=== PATIENT | female | born 1975 | race Caucasian/White ===

== ENCOUNTER 2016-07-03 10:33 | Emergency (ER) | payer OTHER ==
[2016-07-03 10:52] VITALS: BP 138/91; PULSE 84; O2SAT 99
--- NOTE | 2016-07-03 11:05 | ERPHSYRPT ---
- History of Present Illness Time Seen by Provider: 07/03/16 10:56 Source: patient Exam Limitations: no limitations Patient Subjective Stated Complaint: states had redness and itching of right eye last night and worse this am. Triage Nursing Assessment: ambulated to room per self. skin w/d, color normal, resp easy. right upper eyelid swollen and red. clear drainage noted. denies injury. recent sinus infection. Physician History: The patient is a 41-year-old female with her complaining that her right eye upper lid was itching and slightly red last night and this morning it is swollen, itchy, and painful. There is no discharge from the right eye. There are no visual changes. She's had nasal discharge from the right nares for a day or 2. Timing/Duration: yesterday Location: right eye Severity: mild Apparent Injury: no Associated Symptoms: itching, redness, eyelid swelling, No foreign body sensation, No decreased vision, No blurred vision Visual Assistive Devices: None Chemical Exposure: No Trauma: No Welding Arc/Tanning Bed Exposure: No Allergies/Adverse Reactions: haloperidol [From Haldol] Allergy (Mild, Verified 07/03/16 10:46) "CAN'T MOVE AT ALL FOR 3 DAYS" MUSCLE RELAXER Allergy (Uncoded 03/22/16 20:36) "MAKES MY HEART MESS UP" Home Medications: Alprazolam 1 mg [Xanax 1 mg] 1 mg PO TIDPRN PRN 11/07/15 [History] Ergocalciferol (Vitamin D2) [Vitamin D] 50,000 unit PO WEEKLY 07/03/16 [History] Omeprazole 20 MG [Prilosec 20 mg] 20 mg PO DAILY 07/03/16 [History] Hx Tetanus, Diphtheria Vaccination/Date Given: Yes (2009) Hx Influenza Vaccination/Date Given: No Hx Pneumococcal Vaccination/Date Given: No - Review of Systems Constitutional: No Fever, No Chills Eyes: Other (upper eyelid swelling), No Discharge Ears, Nose, & Throat: No Symptoms Respiratory: No Cough, No Dyspnea Cardiac: No Chest Pain, No Edema, No Syncope Abdominal/Gastrointestinal: No Abdominal Pain, No Nausea, No Vomiting, No Diarrhea Genitourinary Symptoms: No Dysuria Musculoskeletal: No Back Pain, No Neck Pain Skin: No Rash Neurological: No Dizziness, No Focal Weakness, No Sensory Changes Psychological: No Symptoms Endocrine: No Symptoms Hematologic/Lymphatic: No Symptoms Immunological/Allergic: No Symptoms All Other Systems: Reviewed and Negative - Past Medical History Pertinent Past Medical History: Yes Neurological History: Migraines ENT History: No Pertinent History Cardiac History: No Pertinent History Respiratory History: Asthma Endocrine Medical History: No Pertinent History Musculoskeletal History: Fibromyalgia, Rheumatoid Arthritis GI Medical History: GERD History: No Pertinent History Psycho-Social History: Anxiety, Depression Female Reproductive Disorders: Fibroids Other Medical History: FIBROMYALGIA, ANXIETY DISORDER - Past Surgical History Past Surgical History: Yes Neuro Surgical History: No Pertinent History Cardiac: No Pertinent History Respiratory: No Pertinent History Gastrointestinal: No Pertinent History Genitourinary: No Pertinent History Musculoskeletal: No Pertinent History Female Surgical History: Section Other Surgical History: tonsillectomy - leep - d and c - Social History Smoking Status: Former smoker How long have you smoked: 20 Exposure to second hand smoke: No Alcohol Use: None Drug Use: none Patient Lives Alone: No Significant Family History: hypertension - Female History Hx Last Menstrual Period: 06/01/16 Hx Now: (says no but late) - Nursing Vital Signs Nursing Vital Signs: Initial Vital Signs Temperature 98.7 F Temperature Source Oral Pulse Rate 84 Blood Pressure 138/91 Pain Intensity 8 - Physical Exam General Appearance: no apparent distress Vision Acuity Degree Evaluation Phase: Uncorrected Vision Acuity Right Eye: 20/20 Vision Acuity Left Eye: 20/20 Eye Exam: right eye: eyelid injury (No apparent injury, but upper eyelid is tender, red, and swollen), bilateral eye: PERRL, EOMI Ears, Nose, Throat Exam: normal ENT inspection Neck Exam: normal inspection Respiratory Exam: normal breath sounds Cardiovascular Exam: regular rate/rhythm Gastrointestinal Exam: soft Extremity Exam: normal inspection Neurologic: alert Skin Exam: normal color SpO2 Interpretation: normal SpO2: 99 Oxygen Delivery: Room Air - Progress Progress: unchanged Counseled pt/family regarding: diagnosis - Departure Time of Disposition: 11:09 Departure Disposition: Home Clinical Impression: Cellulitis Condition: Stable Critical Care Time: No Additional Instructions: You may use the Augmentin 875 that you have at home for treatment. Take one tablet twice a day for 10 days. Benadryl 25 - 50 mg every 2 to 4 hrs as needed. Follow up tomorrow if condition worsens.
== END 2016-07-03 11:20 | disposition home or self-care (01) ==
LOC: ED 10:33
DX: H00.031 Abscess of right upper eyelid (principal)
CPT/HCPCS: 99282

== ENCOUNTER 2016-09-02 07:26 | Emergency (ER) | payer OTHER ==
[2016-09-02 07:34] VITALS: BP 152/94; O2SAT 99
--- NOTE | 2016-09-02 07:58 | ERPHSYRPT ---
- History of Present Illness Time Seen by Provider: 09/02/16 07:41 Source: patient Patient Subjective Stated Complaint: itching since 0530 Triage Nursing Assessment: states started itching about 0530. states her skin is itching. took shower and benadryl with no relief. has reddened areas to bilat knees. states started taking keflex 2 days ago for swollen lymph node. states under significant stress Physician History: CC: hives hX: 41 y/o patient on keflex for a hair follicle and lymph node enlarged. She noted itching, red hives this AM. Took benadryl and some better. No diff breathing, V/D. She is DM on metformin. She sees Dr Ring. Timing/Duration: today Allergies/Adverse Reactions: haloperidol [From Haldol] Allergy (Mild, Verified 09/02/16 07:34) "CAN'T MOVE AT ALL FOR 3 DAYS" MUSCLE RELAXER Allergy (Uncoded 09/02/16 07:34) "MAKES MY HEART MESS UP" Home Medications: Alprazolam 1 mg [Xanax 1 mg] 1 mg PO TIDPRN PRN 11/07/15 [History] Ergocalciferol (Vitamin D2) [Vitamin D] 50,000 unit PO WEEKLY 07/03/16 [History] Omeprazole 20 MG [Prilosec 20 mg] 20 mg PO DAILY 07/03/16 [History] Celecoxib [Celebrex] 200 mg PO HS 09/02/16 [History] Cephalexin Mh 500 mg [Keflex 500 mg] 500 mg PO BID 09/02/16 [History] Metformin HCl [Metformin HCl ER] 500 mg PO HS 09/02/16 [History] Hx Tetanus, Diphtheria Vaccination/Date Given: Yes Hx Influenza Vaccination/Date Given: No Hx Pneumococcal Vaccination/Date Given: No Immunizations Up to Date: Yes - Review of Systems Constitutional: No Fever, No Chills Respiratory: No Dyspnea Abdominal/Gastrointestinal: No Vomiting, No Diarrhea Skin: Pruritis, Rash - Past Medical History Pertinent Past Medical History: Yes Neurological History: Migraines ENT History: No Pertinent History Cardiac History: No Pertinent History Respiratory History: Asthma Endocrine Medical History: No Pertinent History Musculoskeletal History: Fibromyalgia, Rheumatoid Arthritis GI Medical History: GERD History: No Pertinent History Psycho-Social History: Anxiety, Depression Female Reproductive Disorders: Fibroids Other Medical History: FIBROMYALGIA, ANXIETY DISORDER. metabolic X - Past Surgical History Past Surgical History: Yes Neuro Surgical History: No Pertinent History Cardiac: No Pertinent History Respiratory: No Pertinent History Gastrointestinal: No Pertinent History Genitourinary: No Pertinent History Musculoskeletal: No Pertinent History Female Surgical History: Section Other Surgical History: tonsillectomy - leep - d and c - Social History Smoking Status: Never smoker How long have you smoked: 20 Exposure to second hand smoke: Yes Alcohol Use: None Drug Use: none Patient Lives Alone: No Significant Family History: hypertension - Female History Hx Last Menstrual Period: 08/10 Hx Now: (says no but late) - Nursing Vital Signs Nursing Vital Signs: Initial Vital Signs Temperature 98.5 F Temperature Source Oral Pulse Rate 90 Respiratory Rate 18 Blood Pressure [Right Arm] 152/94 Pain Intensity 0 - Physical Exam General Appearance: alert Eye Exam: PERRL/EOMI Ears, Nose, Throat Exam: moist mucous membranes Neck Exam: normal inspection, supple Respiratory Exam: normal breath sounds Cardiovascular Exam: regular rate/rhythm Gastrointestinal/Abdomen Exam: soft, No tenderness, No distention Extremity Exam: normal range of motion Neurologic Exam: alert, oriented x 3, cooperative, sensation nml, No motor deficits Skin Exam: warm, dry, rash (mild hives scattered) SpO2 Interpretation: normal SpO2: 99 Oxygen Delivery: Room Air - Course Nursing assessment & vital signs reviewed: Yes - Progress Progress Note: 09/02/16 07:59 Rx aveeno oatmeal baths, change to hydroxyzine. Stop keflex. Instr given. Counseled pt/family regarding: diagnosis, need for follow-up - Departure Time of Disposition: 07:59 Departure Disposition: Home Clinical Impression: Hives Condition: Stable Critical Care Time: No Referrals: ANDREA RING [Primary Care Provider] - Instructions: Adverse Drug Reaction -- Allergic, Hives Additional Instructions: Rx hydroxyzine. Stop benadryl. Aveeno oatmeal baths. Follow up with Dr Ring. Return for problems or concerns. Prescriptions: Hydroxyzine HCl 1 tab PO Q6H PRN PRN #24 tablet PRN Reason: rash,rest
[2016-09-02 08:25] VITALS: PULSE 80
== END 2016-09-02 08:10 | disposition home or self-care (01) ==
LOC: ED 07:26
DX: L50.9 Urticaria, unspecified (principal)
CPT/HCPCS: 99281

== ENCOUNTER 2016-09-03 02:49 | Emergency (ER) | payer OTHER ==
[2016-09-03 03:04] VITALS: O2SAT 97
[2016-09-03] MEDS ORDERED: solu-MEDROL 125 MG IM ONE (03:09)
[2016-09-03] MEDS ORDERED: solu-MEDROL 125 MG ONE (03:18)
--- NOTE | 2016-09-03 03:19 | ERPHSYRPT ---
- History of Present Illness Time Seen by Provider: 09/03/16 03:00 Source: patient Exam Limitations: clinical condition Patient Subjective Stated Complaint: PT STS BROKE OUT IN RASH YESTERDAY, STS WAS SEEN HERE AND GIVEN RX HYDROXYZINE. PT STS UNABLE TO FILL THIS DUE TO COST. PT STS THAT ITCHING IS WORSE TONIGHT. STS MAKING HER FEEL ANXIOUS. STS RASH IS WORSENING, STS ITCHING ALL OVER. Triage Nursing Assessment: PT ALERT, ORIENTED, ANSWERS ALL QUESTIONS APPROPRIATELY. SKIN P/W/D, RESPS NON-LABORED. PT AMBULATORY TO TX ROOM, STEADY GAIT NOTED. RAISED WELTS NOTED ALL OVER BODY. PT APPEARS ANXIOUS, ITCHING AND SCRATCHING ALL OVER BODY. Physician History: PATIENT DEVELOPED GENERALIZED RASH ASSOCIATED WITH ITCHING AFTER TAKING ANTIBIOTIC KEFLEX 2 DAYS AGO. WAS UNABLE TO FILL PRESCRIPTION FOR ATARAX. STATES ITCHING WORSE. DENIES DIFFICULTY BREATHING OR SWALLOWING. Timing/Duration: yesterday Quality: itchy Severity: moderate Location: generalized Possible Causes: medications Modifying Factors: Improves With: antihistamine Associated Symptoms: change in skin texture Allergies/Adverse Reactions: haloperidol [From Haldol] Allergy (Mild, Verified 09/03/16 02:51) "CAN'T MOVE AT ALL FOR 3 DAYS" MUSCLE RELAXER Allergy (Uncoded 09/03/16 02:51) "MAKES MY HEART MESS UP" Home Medications: Alprazolam 1 mg [Xanax 1 mg] 1 mg PO TIDPRN PRN 11/07/15 [History] Ergocalciferol (Vitamin D2) [Vitamin D] 50,000 unit PO WEEKLY 07/03/16 [History] Omeprazole 20 MG [Prilosec 20 mg] 20 mg PO DAILY 07/03/16 [History] Celecoxib [Celebrex] 200 mg PO HS 09/02/16 [History] Cephalexin Mh 500 mg [Keflex 500 mg] 500 mg PO BID 09/02/16 [History] Metformin HCl [Metformin HCl ER] 500 mg PO HS 09/02/16 [History] Hx Tetanus, Diphtheria Vaccination/Date Given: Yes Hx Influenza Vaccination/Date Given: No Hx Pneumococcal Vaccination/Date Given: No Immunizations Up to Date: Yes - Review of Systems Constitutional: No Fever, No Chills Eyes: No Symptoms Ears, Nose, & Throat: No Symptoms Respiratory: No Cough, No Dyspnea Cardiac: No Chest Pain, No Edema, No Syncope Abdominal/Gastrointestinal: No Abdominal Pain, No Nausea, No Vomiting, No Diarrhea Genitourinary Symptoms: No Dysuria Musculoskeletal: No Back Pain, No Neck Pain Skin: Skin Lesions, No Rash Neurological: No Dizziness, No Focal Weakness, No Sensory Changes Psychological: No Symptoms Endocrine: No Symptoms All Other Systems: Reviewed and Negative - Past Medical History Pertinent Past Medical History: Yes Neurological History: Migraines ENT History: No Pertinent History Cardiac History: No Pertinent History Respiratory History: Asthma Endocrine Medical History: Diabetes Type II Musculoskeletal History: Fibromyalgia GI Medical History: GERD History: No Pertinent History Psycho-Social History: Anxiety, Depression Female Reproductive Disorders: Fibroids Other Medical History: FIBROMYALGIA, ANXIETY DISORDER. metabolic X - Past Surgical History Past Surgical History: Yes Neuro Surgical History: No Pertinent History Cardiac: No Pertinent History Respiratory: No Pertinent History Gastrointestinal: No Pertinent History Genitourinary: No Pertinent History Musculoskeletal: No Pertinent History Female Surgical History: Section Other Surgical History: tonsillectomy - leep - d and c - Social History Smoking Status: Former smoker How long have you smoked: 20 Exposure to second hand smoke: No Alcohol Use: None Drug Use: none Patient Lives Alone: No Significant Family History: hypertension - Female History Hx Last Menstrual Period: 08/11/16 Hx Now: (says no but late) - Nursing Vital Signs Nursing Vital Signs: Initial Vital Signs Pulse Rate 92 Respiratory Rate 18 Blood Pressure [Right Arm] 173/122 - Physical Exam SpO2: 97 Oxygen Delivery: Room Air - Progress Progress Note: 09/03/16 03:18 PATIENT GIVEN SOLUMEDROL 125MG IM Counseled pt/family regarding: diagnosis, need for follow-up - Departure Time of Disposition: 03:44 Departure Disposition: Home Clinical Impression: ALLERGIC REACTION Condition: Stable Critical Care Time: No Critical Care Time(excluding separately billable procedures): 30-74 minutes Referrals: ANDREA CHRISTY [Primary Care Provider] - Additional Instructions: TAKE OVER THE COUNTER BENADRYL 50MG EVERY 4 HOURS NEEDED FOR ITCHING. PREDNISONE 20MG, 2 TABLETS DAILY FOR 5 DAYS. CONSULT YOUR FAMILY PHYSICIAN FOR FOLLOWUP IN 1 WEEK. Prescriptions: Prednisone 20 mg [Deltasone 20 mg] 20 mg PO BID #10 tablet
[2016-09-03 03:40] VITALS: BP 127/92; PULSE 88
== END 2016-09-03 03:58 | disposition home or self-care (01) ==
LOC: ED 02:49
DX: T78.40XA Allergy, unspecified, initial encounter (principal); E11.9 Type 2 diabetes mellitus without complications; Z79.84 Long term (current) use of oral hypoglycemic drugs
CPT/HCPCS: 96372; 99284; J2930

== ENCOUNTER 2017-02-20 11:08 | Emergency (ER) | payer OTHER ==
[2017-02-20] MEDS ORDERED: TORAdol 30 mg Injection IV ONE (11:53)
[2017-02-20] MEDS ORDERED: BENADRYL 50 MG/ML IV ONE (11:54)
[2017-02-20] MEDS ORDERED: Reglan 10 MG/2 ML IV ONE (11:54)
[2017-02-20] MEDS ORDERED: Zofran 4 MG/2 ML VIAL IV ONE (11:55)
[2017-02-20] MEDS ORDERED: Zofran 4 MG/2 ML VIAL ONE (12:01)
[2017-02-20] MEDS ORDERED: Reglan 10 MG/2 ML ONE (12:02)
[2017-02-20] MEDS ORDERED: BENADRYL 50 MG/ML ONE (12:02)
[2017-02-20] MEDS ORDERED: TORAdol 30 mg Injection ONE (12:02)
--- NOTE | 2017-02-20 12:49 | XRAY ---
Indication: Intractable headache. Top of head pain for 4-5 days. Multiple contiguous axial images obtained through the head without contrast. Comparison: September 02, 2014. Again normal appearing brain parenchyma, ventricles, and bony calvarium. Minimal mucosal thickening of both ethmoid sinuses. Mastoid air cells clear. Impression: Again normal CT head without contrast exam. Incidental minimal paranasal sinus disease. CTDI 70.10
--- NOTE | 2017-02-20 13:08 | ERPHSYRPT ---
- History of Present Illness Time Seen by Provider: 02/20/17 11:52 Source: patient Exam Limitations: no limitations Patient Subjective Stated Complaint: pt states she began having a headache 4 days ago. states her pain comes and goes. denies any injury to head. has a hx of headaches. Triage Nursing Assessment: pt pink, warm, dry. pt ambulated and drove herself to the ER. pupils perrl. Physician History: States that this is not the worst headache of her life, but they usually don't last this long. She describes "icepick" migraines to right parietal area. Timing/Duration: day(s) (4) Quality: sharpness, stabbing, throbbing Head Pain Location: parietal Severity of Pain-Max: severe Severity of Pain-Current: moderate Recent Head Trauma: frequent headaches Modifying Factors: Improves With: exposure to light Associated Symptoms: denies symptoms Previous symptoms: same symptoms as today Allergies/Adverse Reactions: haloperidol [From Haldol] Allergy (Mild, Verified 02/20/17 11:56) "CAN'T MOVE AT ALL FOR 3 DAYS" MUSCLE RELAXER Allergy (Uncoded 02/20/17 11:56) "MAKES MY HEART MESS UP" Home Medications: Alprazolam 1 mg [Xanax 1 mg] 1 mg PO TIDPRN PRN 11/07/15 [History] Ergocalciferol (Vitamin D2) [Vitamin D] 50,000 unit PO WEEKLY 07/03/16 [History] Celecoxib [Celebrex] 200 mg PO HS 09/02/16 [History] Norgestimate-Ethinyl Estradiol [Ortho Tri-Cyclen Lo Tablet] 1 each PO DAILY [History] Hx Tetanus, Diphtheria Vaccination/Date Given: Yes (up to date) Hx Influenza Vaccination/Date Given: No Hx Pneumococcal Vaccination/Date Given: No Immunizations Up to Date: Yes - Review of Systems Constitutional: No Symptoms Eyes: No Symptoms Ears, Nose, & Throat: No Symptoms Respiratory: No Symptoms Cardiac: No Symptoms Abdominal/Gastrointestinal: No Symptoms Musculoskeletal: No Symptoms Skin: No Symptoms Neurological: Headache Psychological: No Symptoms Endocrine: No Symptoms Hematologic/Lymphatic: No Symptoms Immunological/Allergic: No Symptoms - Past Medical History Pertinent Past Medical History: Yes Neurological History: Migraines ENT History: No Pertinent History Cardiac History: No Pertinent History Respiratory History: Asthma Endocrine Medical History: Diabetes Type II Musculoskeletal History: Fibromyalgia GI Medical History: GERD History: No Pertinent History Psycho-Social History: Anxiety, Depression Female Reproductive Disorders: Fibroids Other Medical History: FIBROMYALGIA, ANXIETY DISORDER. metabolic X - Past Surgical History Past Surgical History: Yes Neuro Surgical History: No Pertinent History Cardiac: No Pertinent History Respiratory: No Pertinent History Gastrointestinal: No Pertinent History Genitourinary: No Pertinent History Musculoskeletal: No Pertinent History Female Surgical History: Section Other Surgical History: tonsillectomy - leep - d and c - Social History Smoking Status: Former smoker How long have you smoked: 20 Exposure to second hand smoke: No Alcohol Use: None Drug Use: none Patient Lives Alone: No Significant Family History: hypertension - Female History Hx Last Menstrual Period: now Hx Now: (says no but late) - Nursing Vital Signs Nursing Vital Signs: Initial Vital Signs Temperature 98.2 F 02/20/17 11:51 Pulse Rate 75 02/20/17 11:51 Respiratory Rate 18 02/20/17 11:51 Blood Pressure 143/96 02/20/17 11:51 O2 Sat by Pulse Oximetry 98 02/20/17 11:51 Pain Scale Pain Intensity 3 - Physical Exam General Appearance: moderate distress Eye Exam: PERRL/EOMI, eyes nml inspection Ears, Nose, Throat Exam: normal ENT inspection, TMs normal, moist mucous membranes Neck Exam: normal inspection, non-tender, supple, full range of motion Respiratory Exam: normal breath sounds, lungs clear, airway intact Cardiovascular Exam: regular rate/rhythm, normal heart sounds, normal peripheral pulses Gastrointestinal/Abdominal Exam: soft, normal bowel sounds Extremity Exam: normal inspection, normal range of motion, pelvis stable Mental Status Exam: alert, oriented x 3, cooperative supervisor rod placing Exam: normal hearing, normal speech Coordination/Gait Exam: normal gait Motor/Sensory Exam: no motor deficit, no sensory deficit Skin Exam: normal color, warm, dry SpO2 Interpretation: normal SpO2: 98 Oxygen Delivery: Room Air - Course Nursing assessment & vital signs reviewed: Yes - CT Exams Head CT Interpretation: Negative, Tele-radiologist Report Ordered Tests: Active Orders 24 hr Category Date Time Status IV Insertion STAT Care 02/20/17 12:24 Active HEAD WITHOUT CONTRAST [CT] Stat Exams 02/20/17 11:52 Completed Medication Summary Discontinued Medications Generic Name Dose Route Start Last Admin Trade Name Kenyon MONN Reason Stop Dose Admin Diphenhydramine HCl 25 mg 02/20/17 11:54 02/20/17 12:22 Benadryl 50 Mg/Ml IV 02/20/17 11:55 Not Given STAT ONE Diphenhydramine HCl Confirm 02/20/17 12:02 Benadryl 50 Mg/Ml Administered 02/20/17 12:03 Dose 50 mg .ROUTE .STK-MED ONE Ketorolac Tromethamine 30 mg 02/20/17 11:53 02/20/17 12:17 Toradol 30 Mg Injection IV 02/20/17 11:54 30 mg STAT ONE Administration Ketorolac Tromethamine Confirm 02/20/17 12:02 Toradol 30 Mg Injection Administered 02/20/17 12:03 Dose 30 mg .ROUTE .STK-MED ONE Metoclopramide HCl 10 mg 02/20/17 11:54 02/20/17 12:11 Reglan 10 Mg/2 Ml IV 02/20/17 11:55 10 mg STAT ONE Administration Metoclopramide HCl Confirm 02/20/17 12:02 Reglan 10 Mg/2 Ml Administered 02/20/17 12:03 Dose 10 mg .ROUTE .STK-MED ONE Ondansetron HCl 4 mg 02/20/17 11:55 02/20/17 12:14 Zofran 4 Mg/2 Ml Vial IV 02/20/17 11:56 4 mg STAT ONE Administration Ondansetron HCl Confirm 02/20/17 12:01 Zofran 4 Mg/2 Ml Vial Administered 02/20/17 12:02 Dose 4 mg .ROUTE .STK-MED ONE - Departure Time of Disposition: 13:00 Departure Disposition: Home Clinical Impression: Headache Qualifiers: Headache type: unspecified Headache chronicity pattern: acute headache Intractability: not intractable Qualified Code(s): R51 - Headache Condition: Stable Critical Care Time: No Referrals: ANDREA CHRISTY [Primary Care Provider] - Instructions: Headache
[2017-02-20 13:25] VITALS: BP 119/70; PULSE 76; O2SAT 100
== END 2017-02-20 13:24 | disposition home or self-care (01) ==
LOC: ED 11:08
DX: R51 Headache (principal)
CPT/HCPCS: 36000; 70450; 96374; 96375; 99284; J1200; J1885; J2405

== ENCOUNTER 2017-03-28 15:46 | Emergency (ER) | payer OTHER ==
[2017-03-28 16:03] VITALS: O2SAT 97
[2017-03-28] MEDS ORDERED: TORAdol 30 mg Injection IM ONE (16:23)
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
[2017-03-28] MEDS ORDERED: TORAdol 30 mg Injection ONE (16:27)
--- NOTE | 2017-03-28 17:07 | XRAY ---
Indication: Right shoulder pain. No known injury. Comparison: Right shoulder exam taken earlier in the day. AP and scapular Y view of the right scapula obtained. No bony, articular, or soft tissue abnormalities.
[2017-03-28 17:17] VITALS: BP 115/77; PULSE 80
== END 2017-03-28 17:40 | disposition home or self-care (01) ==
LOC: ED 15:46
DX: M25.511 Pain in right shoulder (principal); X50.0XXD Overexertion from strenuous movement or load, subsequent encounter
CPT/HCPCS: 73010; 96372; 99284; J1885

== ENCOUNTER 2017-04-18 09:00 | Emergency (ER) | payer OTHER ==
[2017-04-18 09:54] VITALS: PULSE 83; O2SAT 98
[2017-04-18] MEDS ORDERED: TORAdol 30 mg Injection IM ONE (09:54)
[2017-04-18] MEDS ORDERED: TORAdol 30 mg Injection ONE (10:14)
[2017-04-18 10:20] VITALS: BP 143/82
--- NOTE | 2017-04-18 10:20 | ERPHSYRPT ---
- History of Present Illness Time Seen by Provider: 04/18/17 09:50 Source: patient Patient Subjective Stated Complaint: pt states she has had right shoulder pain for the past 3 weeks. states she was seen in ER 3 weeks ago. states she followed up with family Dr and has had massage. Triage Nursing Assessment: pt pink, warm, dry. no deformity noted to shoulder. pt able to move shoulder to remove clothes. Physician History: CC: neck and shoulder pain Hx: 41 y/o patient has had 3 weeks of right shoulder pain. Had normal xray. Now neck hurts. Muscles in between hurt. No new injury. No specific injury. Some tingling in the right hand. She called to see Dr Ring but did not want to wait until 2PM so came to ER. Pain is moderate. Allergies/Adverse Reactions: haloperidol [From Haldol] Allergy (Mild, Verified 03/28/17 16:03) "CAN'T MOVE AT ALL FOR 3 DAYS" MUSCLE RELAXER Allergy (Uncoded 03/28/17 16:03) "MAKES MY HEART MESS UP" Home Medications: Alprazolam 1 mg [Xanax 1 mg] 1 mg PO TIDPRN PRN 11/07/15 [History] Ergocalciferol (Vitamin D2) [Vitamin D] 50,000 unit PO WEEKLY 07/03/16 [History] Celecoxib [Celebrex] 200 mg PO HS 09/02/16 [History] Norgestimate-Ethinyl Estradiol [Ortho Tri-Cyclen Lo Tablet] 1 each PO DAILY [History] Hx Tetanus, Diphtheria Vaccination/Date Given: Yes (up to date) Hx Influenza Vaccination/Date Given: No Hx Pneumococcal Vaccination/Date Given: No Immunizations Up to Date: Yes - Review of Systems Constitutional: No Fever, No Chills Eyes: No Symptoms Ears, Nose, & Throat: No Symptoms Cardiac: No Chest Pain Abdominal/Gastrointestinal: No Abdominal Pain Genitourinary Symptoms: No Musculoskeletal: Neck Pain, Joint Pain (right shoulder), No Back Pain Skin: No Rash Neurological: Focal Weakness, No Headache, No Parasthesia All Other Systems: Reviewed and Negative - Past Medical History Pertinent Past Medical History: Yes Neurological History: Migraines ENT History: No Pertinent History Cardiac History: No Pertinent History Respiratory History: Asthma Endocrine Medical History: Diabetes Type II Musculoskeletal History: Fibromyalgia GI Medical History: GERD History: No Pertinent History Psycho-Social History: Anxiety, Depression Female Reproductive Disorders: Fibroids Other Medical History: FIBROMYALGIA, ANXIETY DISORDER. metabolic X - Past Surgical History Past Surgical History: Yes Neuro Surgical History: No Pertinent History Cardiac: No Pertinent History Respiratory: No Pertinent History Gastrointestinal: No Pertinent History Genitourinary: No Pertinent History Musculoskeletal: No Pertinent History Female Surgical History: Section Other Surgical History: tonsillectomy - leep - d and c - Social History Smoking Status: Current some day smoker How long have you smoked: 20 Exposure to second hand smoke: Yes Alcohol Use: None Drug Use: none Patient Lives Alone: No Significant Family History: hypertension - Female History Hx Last Menstrual Period: now Hx Now: (says no but late) - Nursing Vital Signs Nursing Vital Signs: Initial Vital Signs Temperature 97.9 F 04/18/17 09:53 Pulse Rate 83 04/18/17 09:53 Respiratory Rate 18 04/18/17 09:53 Blood Pressure 148/89 04/18/17 09:53 O2 Sat by Pulse Oximetry 98 04/18/17 09:53 Pain Scale Pain Intensity 8 - Physical Exam General Appearance: alert Eye Exam: PERRL/EOMI Ears, Nose, Throat Exam: normal ENT inspection, moist mucous membranes Neck Exam: normal inspection, non-tender (no point tenderness), supple Respiratory Exam: normal breath sounds Cardiovascular Exam: regular rate/rhythm Gastrointestinal/Abdomen Exam: soft, No tenderness, No distention Extremity Exam: normal inspection, normal range of motion, other (tender right trapezius muscles) Neurologic Exam: alert, oriented x 3, cooperative, kettle tender II-XII nml as tested, sensation nml, No motor deficits Skin Exam: normal color, warm, dry SpO2 Interpretation: normal SpO2: 98 Oxygen Delivery: Room Air - Course Nursing assessment & vital signs reviewed: Yes - Radiology Exams cervical X-ray Interpretation: Teleradiologist Report, Negative Ordered Tests: Active Orders 24 hr Category Date Time Status CERVICAL SPINE MINIMUM 4 VIEWS Stat Exams 04/18/17 09:54 Completed Medication Summary Discontinued Medications Generic Name Dose Route Start Last Admin Trade Name Freq PRN Reason Stop Dose Admin Ketorolac Tromethamine 60 mg 04/18/17 09:54 04/18/17 10:18 Toradol 30 Mg Injection IM 10/24/17 09:55 60 mg STAT ONE Administration Ketorolac Tromethamine Confirm 04/18/17 10:14 Toradol 30 Mg Injection Administered 04/18/17 10:15 Dose 60 mg .ROUTE .STK-MED ONE - Progress Progress Note: 04/18/17 11:19 Patient drove herself here. She was given toradol for pain. Advised she see Dr Ring to consider PT, other investigations. She wants to try norflex muscle relaxer. Counseled pt/family regarding: diagnosis, need for follow-up, rad results - Departure Time of Disposition: 11:20 Departure Disposition: Home Clinical Impression: Cervicalgia, Fibromyalgia Condition: Stable Critical Care Time: No Referrals: ANDREA RING [Primary Care Provider] - Instructions: Neck Pain Additional Instructions: Continue celebrex for pain. Rx norflex for muscle relaxer- no driving. See Dr Ring tomorrow as scheduled. Prescriptions: Orphenadrine Citrate 100 mg [Norflex 100 MG Tablet] 1 tab PO BID #10 tab
--- NOTE | 2017-04-18 11:00 | XRAY ---
Indication: Neck and left shoulder pain for 3 weeks pain no known injury. Comparison: March 28, 2017. 6 views of the cervical spine unchanged again demonstrating lordotic straightening with disc spaces preserved. Foramina remain bilaterally patent. No new/acute findings.
== END 2017-04-18 11:39 | disposition home or self-care (01) ==
LOC: ED 09:00
DX: M54.2 Cervicalgia (principal); M79.7 Fibromyalgia; M25.511 Pain in right shoulder; Z79.899 Other long term (current) drug therapy; E11.9 Type 2 diabetes mellitus without complications; I10 Essential (primary) hypertension
CPT/HCPCS: 72050; 96372; 99284; J1885

== ENCOUNTER 2017-06-08 12:54 | Emergency (ER) | payer OTHER ==
[2017-06-08] MEDS ORDERED: Sodium Chloride 0.9% 1000 ML 1,000 ML IV STA (13:35)
--- NOTE | 2017-06-08 13:43 | ERPHSYRPT ---
- History of Present Illness Time Seen by Provider: 06/08/17 13:29 Source: patient Exam Limitations: no limitations Patient Subjective Stated Complaint: Pt states "I ate burmese food yesterday and I had this horrible pain go through my chest, now the pain is in my upper abdomen, my stool was a different color today and I am tired." Triage Nursing Assessment: Pt alert and oriented X 3, skin pwd. Pt ambulates with an upright steady gait, able to speak in clear full sentences. Physician History: 42-year-old white female with history of migraines, asthma, diabetes type 2, fibromyalgia, reflux, anxiety, depression She arrives with complaint of pain in her anterior chest and shoulder symptoms since yesterday she states that yesterday she ate [place] food that she began to have an aching pain in her left upper chest and left shoulder she described as a severe aching she states that this as radiated down and now is incurring in her left upper quadrant as well. She is not short of breath she states she has no nausea no vomiting no fevers. She does state that her stools been light. Past medical history includes migraines, asthma, diabetes type 2, fibromyalgia, GERD, anxiety, depression, fibroids, fibromyalgia, anxiety, metabolic X. Past surgical history , LEEP, D&C, tonsillectomy and adenoidectomy. Social history positive for tobacco use Patient states she took a full size aspirin 325 mg last night at 6 PM. Timing/Duration: yesterday Severity: moderate Modifying Factors: Improves With: eating (patient states she ate [place] food prior onset of sympt) Associated Symptoms: abdominal pain, chest pain, No nausea, No vomiting, No shortness of breath, No heartburn, No diaphoresis, No cough, No chills, No fever , No headaches, No loss of appetite, No malaise, No rash, No syncope, No seizure , No weakness Allergies/Adverse Reactions: haloperidol [From Haldol] Allergy (Mild, Verified 03/28/17 16:03) "CAN'T MOVE AT ALL FOR 3 DAYS" MUSCLE RELAXER Allergy (Uncoded 03/28/17 16:03) "MAKES MY HEART MESS UP" Home Medications: Alprazolam 1 mg [Xanax 1 mg] 1 mg PO TIDPRN PRN 11/07/15 [History] Ergocalciferol (Vitamin D2) [Vitamin D] 50,000 unit PO WEEKLY 07/03/16 [History] Celecoxib [Celebrex] 200 mg PO HS 09/02/16 [History] Norgestimate-Ethinyl Estradiol [Ortho Tri-Cyclen Lo Tablet] 1 each PO DAILY [History] Hx Tetanus, Diphtheria Vaccination/Date Given: Yes Hx Influenza Vaccination/Date Given: No Hx Pneumococcal Vaccination/Date Given: No Immunizations Up to Date: Yes - Review of Systems Constitutional: No Fever, No Chills Eyes: No Symptoms, No Discharge, No Eye Pain, No Eye Redness, No Itchy, No Photophobia, No Tearing, No Vision Changes, No Double Vision, No Foreign Body Sensation Ears, Nose, & Throat: No Symptoms, No Ear Pain, No Ear Discharge, No Hearing Changes, No Tinnitus, No Nose Pain, No Nose Congestion, No Nose Discharge, No Sinus Drainage, No Epistaxis, No Mouth Pain, No Mouth Swelling, No Loose Teeth, No Throat Pain, No Throat Swelling, No Hoarse, No Painful Swallowing, No Snoring , No Stridor Respiratory: No Cough, No Cyanosis, No Dyspnea, No Dyspnea on Exertion ([place]), No Stridor, No Wheezing Cardiac: Chest Pain, No Edema, No Palpitations, No Syncope, No Orthopnea, No PND Abdominal/Gastrointestinal: Abdominal Pain (left upper quadrant pain), No Nausea , No Vomiting, No Diarrhea Genitourinary Symptoms: No Dysuria Musculoskeletal: No Back Pain, No Neck Pain Skin: No Rash Neurological: No Dizziness, No Focal Weakness, No Sensory Changes Psychological: No Symptoms Endocrine: No Symptoms All Other Systems: Reviewed and Negative - Past Medical History Pertinent Past Medical History: Yes Neurological History: Migraines ENT History: No Pertinent History Cardiac History: No Pertinent History Respiratory History: Asthma Endocrine Medical History: Hypoglycemia Musculoskeletal History: Fibromyalgia GI Medical History: GERD History: No Pertinent History Psycho-Social History: Anxiety, Depression Female Reproductive Disorders: Fibroids Other Medical History: FIBROMYALGIA, ANXIETY DISORDER. metabolic X - Past Surgical History Past Surgical History: Yes Neuro Surgical History: No Pertinent History Cardiac: No Pertinent History Respiratory: No Pertinent History Gastrointestinal: No Pertinent History Genitourinary: No Pertinent History Musculoskeletal: No Pertinent History Female Surgical History: Section Other Surgical History: tonsillectomy - leep - d and c - Social History Smoking Status: Current every day smoker How long have you smoked: 4 years Exposure to second hand smoke: Yes Alcohol Use: None Drug Use: none Patient Lives Alone: No Significant Family History: hypertension - Female History Hx Last Menstrual Period: 05/09/2017 Hx Now: No - Nursing Vital Signs Nursing Vital Signs: Initial Vital Signs Temperature 98.7 F 06/08/17 13:10 Pulse Rate 80 06/08/17 13:10 Respiratory Rate 16 06/08/17 13:10 Blood Pressure 151/90 06/08/17 13:10 O2 Sat by Pulse Oximetry 98 06/08/17 13:10 Pain Scale Pain Intensity 0 - Physical Exam General Appearance: no apparent distress, alert Eye Exam: PERRL/EOMI, eyes nml inspection Ears, Nose, Throat Exam: normal ENT inspection, TMs normal, pharynx normal, moist mucous membranes Neck Exam: normal inspection, non-tender, supple, full range of motion Respiratory Exam: normal breath sounds Cardiovascular Exam: regular rate/rhythm, normal heart sounds, normal peripheral pulses Gastrointestinal/Abdomen Exam: soft, normal bowel sounds, No tenderness, No mass , No guarding, No ecchymosis, No pulsatile mass, No rebound, No hernia, No hepatomegaly, No organomegaly, No splenomegaly, No bruit Back Exam: normal inspection, normal range of motion, No CVA tenderness, No vertebral tenderness Extremity Exam: normal inspection, normal range of motion, pelvis stable Neurologic Exam: alert, oriented x 3, cooperative, normal mood/affect, nml cerebellar function, nml station & gait, sensation nml, No motor deficits Skin Exam: normal color, warm, dry, No rash Lymphatic Exam: No adenopathy SpO2 Interpretation: normal (98%) SpO2: 98 Oxygen Delivery: Room Air - Course Nursing assessment & vital signs reviewed: Yes EKG Interpreted by Me: RATE (70 bpm), Sinus Rhythm, NORMAL AXIS, Other (EKG: Sinus rhythm, 70 bpm, normal axis, poor anterior R-wave progression, no acute ST or T wave changes, no acute changes as compared to March 22, 2016) - Radiology Exams Chest X-ray Interpretation: Discussed w/ radiologist (chest x-ray: Normal heart, lungs , and bony thorax) Ordered Tests: Active Orders 24 hr Category Date Time Status Customer Sales Consultant STAT Care 06/08/17 13:37 Active EKG-ER Only STAT Care 06/08/17 13:35 Active IV Insertion STAT Care 06/08/17 13:35 Active CHEST 1 VIEW (PORTABLE) Stat Exams 06/08/17 13:36 Completed AMYLASE Routine Lab 06/08/17 13:45 Completed CBC W DIFF Stat Lab 06/08/17 13:45 Completed CMP Routine Lab 06/08/17 13:45 Completed D-DIMER QUANTITATION Stat Lab 06/08/17 13:45 Completed HCG QUALITATIVE,SERUM Stat Lab 06/08/17 13:45 Completed LIPASE Routine Lab 06/08/17 13:45 Completed TROPONIN Q3H Lab 06/08/17 13:45 Completed TROPONIN Q3H Lab 06/08/17 16:45 Ordered TROPONIN Q3H Lab 06/08/17 19:45 Ordered TROPONIN Q3H Lab 06/08/17 22:45 Ordered TROPONIN Q3H Lab 06/09/17 01:45 Ordered UA W/RFX UR CULTURE Stat Lab 06/08/17 13:45 Completed Medication Summary Discontinued Medications Generic Name Dose Route Start Last Admin Trade Name Freq PRN Reason Stop Dose Admin Aspirin 324 mg 06/08/17 14:28 06/08/17 14:36 Baby Aspirin 81 Mg Chew PO 06/08/17 14:29 324 mg STAT ONE Administration Aspirin Confirm 06/08/17 14:33 Baby Aspirin 81 Mg Chew Administered 06/08/17 14:34 Dose 324 mg .ROUTE .STK-MED ONE Sodium Chloride 1,000 mls @ 999 mls/hr 06/08/17 13:35 06/08/17 13:52 Sodium Chloride 0.9% 1000 Ml IV 06/08/17 14:35 999 mls/hr .Q1H1M STA Administration Sodium Chloride Confirm 06/08/17 13:50 Sodium Chloride 0.9% 1000 Ml Administered 06/08/17 13:51 Dose 1,000 mls @ ud .ROUTE .STK-MED ONE Lab/Rad Data: Laboratory Result Diagrams 06/08/17 13:45 06/08/17 13:45 Laboratory Results 06/08/17 06/08/17 06/08/17 Range/Units 13:45 13:45 13:45 WBC (4.0-10.5) K/mm3 RBC (4.1-5.4) M/mm3 Hgb (12.0-16.0) gm/dl Hct (35-47) % MCV (78-100) fl MCH (26-32) pg MCHC (32-36) g/dl RDW (11.5-14.0) % Plt Count (150-450) K/mm3 MPV (6-9.5) fl Gran % (36.0-66.0) % Lymphocytes % (24.0-44.0) % Monocytes % (0.0-12.0) % Eosinophils % (0.00-5.0) % Basophils % (0.0-0.4) % Basophils # (0-0.4) D-Dimer (0-500) ng/mL Sodium 136 (136-145) mEq/L Potassium 4.5 (3.5-5.1) mEq/L Chloride 103 (98-107) mEq/L Carbon Dioxide 26.1 (21-32) mEq/L Anion Gap 11.6 (5-15) MEQ/L BUN 14 (9-20) mg/dL Creatinine 0.73 (0.55-1.30) mg/dl Estimated GFR > 60 ML/MIN Glucose 96 (70-110) MG/DL Calcium 8.9 (8.5-10.1) mg/dL Total Bilirubin 0.20 (0.2-1.0) mg/dL AST 15 (15-37) U/L ALT 15 (12-78) U/L Alkaline Phosphatase 71 (46-116) U/L Troponin I < 0.017 (0.000-0.056) ng/ml Serum Total Protein 7.0 (6.4-8.2) gm/dL Albumin 3.2 L (3.4-5.0) g/dL Amylase 50 (25-115) U/L Lipase 209 (73-393) U/L Serum , Qual NEGATIVE (Negative) Ur Collection Type Urine Color (YELLOW) Urine Appearance (CLEAR) Urine pH (5-6) Ur Specific [place] (1.005-1.025) Urine Protein (Negative) Urine Ketones (NEGATIVE) Urine Blood (0-5) Blake/ul Urine Nitrite (NEGATIVE) Urine Bilirubin (NEGATIVE) Urine Urobilinogen (0-1) mg/dL Ur Leukocyte Esterase (NEGATIVE) Urine Culture Reflexed (NO) Urine Glucose (NEGATIVE) mg/dL Specimen Received 06/08/17 06/08/17 06/08/17 Range/Units 13:45 13:45 13:45 WBC 9.8 (4.0-10.5) K/mm3 RBC 4.01 L (4.1-5.4) M/mm3 Hgb 11.9 L (12.0-16.0) gm/dl Hct 37.1 (35-47) % MCV 92.5 (78-100) fl MCH 29.6 (26-32) pg MCHC 32.1 (32-36) g/dl RDW 13.6 (11.5-14.0) % Plt Count 272 (150-450) K/mm3 MPV 9.2 (6-9.5) fl Gran % 74.1 H (36.0-66.0) % Lymphocytes % 16.9 L (24.0-44.0) % Monocytes % 7.9 (0.0-12.0) % Eosinophils % 0.9 (0.00-5.0) % Basophils % 0.2 (0.0-0.4) % Basophils # 0.02 (0-0.4) D-Dimer 279.27 (0-500) ng/mL Sodium (136-145) mEq/L Potassium (3.5-5.1) mEq/L Chloride (98-107) mEq/L Carbon Dioxide (21-32) mEq/L Anion Gap (5-15) MEQ/L BUN (9-20) mg/dL Creatinine (0.55-1.30) mg/dl Estimated GFR ML/MIN Glucose (70-110) MG/DL Calcium (8.5-10.1) mg/dL Total Bilirubin (0.2-1.0) mg/dL AST (15-37) U/L ALT (12-78) U/L Alkaline Phosphatase (46-116) U/L Troponin I (0.000-0.056) ng/ml Serum Total Protein (6.4-8.2) gm/dL Albumin (3.4-5.0) g/dL Amylase (25-115) U/L Lipase (73-393) U/L Serum , Qual (Negative) Ur Collection Type VOID Urine Color YELLOW (YELLOW) Urine Appearance CLEAR (CLEAR) Urine pH 5.0 (5-6) Ur Specific [place] 1.020 (1.005-1.025) Urine Protein NEGATIVE (Negative) Urine Ketones NEGATIVE (NEGATIVE) Urine Blood NEGATIVE (0-5) Blake/ul Urine Nitrite NEGATIVE (NEGATIVE) Urine Bilirubin SMALL (NEGATIVE) Urine Urobilinogen NORMAL (0-1) mg/dL Ur Leukocyte Esterase NEGATIVE (NEGATIVE) Urine Culture Reflexed NO (NO) Urine Glucose NEGATIVE (NEGATIVE) mg/dL Specimen Received 06/08/17 7945 - Progress Progress: improved Progress Note: 06/08/17 15:01 This is a 42-year-old white female who arrives with complaint of pain in the left upper chest left shoulder which radiated around to the left upper abdomen after eating [place] food yesterday afternoon at 3:00. She took aspirin at 6:00. She states she continues to have the pain until she arrives. Patient was given normal saline 1 L also given aspirin 324 mg. Patient is currently pain-free. EKG normal sinus rhythm at [address] or T wave changes chest x-ray normal heart and lungs amylase and lipase within normal limits CBC is normal troponin is normal Vitals a been stable. I've offered the patient to stay for repeat troponin 3 hours after initial draw I told her that I cannot completely rule out cardiac etiology without doing this. Patient does not want to repeat her troponin it is noted that she had pain since 3:00 yesterday afternoon with normal initial troponin will go ahead and discharge patient she is return home rest plenty of fluids clear fluids only 24- 48 hours if abdominal pain. Tylenol every 4-6 hours as needed for pain. She has been advised to follow-up with your family doctor. She is return for any problems . - Departure Time of Disposition: 15:03 Departure Disposition: Home Clinical Impression: Abdominal pain Qualifiers: Abdominal location: left upper quadrant Qualified Code(s): R10.12 - Left upper quadrant pain Chest pain Qualifiers: Chest pain type: unspecified Qualified Code(s): R07.9 - Chest pain, unspecified Condition: Fair Critical Care Time: No Referrals: VERONIQUE MONTOYA [Primary Care Provider] - Additional Instructions: Return home. Plenty of fluids, clear fluids only 24-48 hours if abdominal pain. Tylenol every 4 hours as needed for pain. Follow-up with your family doctor. Return for acute distress or for severe symptoms or for any problems.
[2017-06-08] MEDS ORDERED: Sodium Chloride 0.9% 1000 ML 1,000 ML ONE (13:50)
[2017-06-08 13:53] LABS: ADD URINE CULTURE? NO (NO); Bilirubin SMALL (NEGATIVE); Blood NEGATIVE Ery/ul (0-5); COMPLETE URINE MICROSCOPIC? NO; Collection Type VOID; Glucose NEGATIVE (NEGATIVE); Leukocyte Esterase NEGATIVE (NEGATIVE)
[2017-06-08 13:54] LABS: BASOPHIL % 0.2 % (0.0-0.4); Eosinophil % 0.9 % (0.00-5.0); Granulocytes % 74.1 % (36.0-66.0); Lymphocytes % 16.9 % (24.0-44.0); Mean Cell Volume 92.5 fl (78-100); Mean Corpuscular Hemoglobin 29.6 pg (26-32); Mean Platelet Volume 9.2 fl (6-9.5); Monocytes % 7.9 % (0.0-12.0); Platelet Count 272 K/mm3 (150-450); Red Blood Count 4.01 M/mm3 (4.1-5.4); Red Cell Distribution Width 13.6 % (11.5-14.0); White Blood Count 9.8 K/mm3 (4.0-10.5)
--- NOTE | 2017-06-08 13:59 | XRAY ---
Indication: Mid chest pain. Comparison: November 03, 2015. Portable chest again demonstrates normal heart, lungs, and bony thorax.
[2017-06-08 14:22] LABS: ALBUMIN 3.2 g/dL (3.4-5.0); ALKALINE PHOSPHATASE 71 U/L (46-116); ANION GAP 11.6 MEQ/L (5-15); BLOOD UREA NITROGEN 14 mg/dL (9-20); CHLORIDE 103 mEq/L (98-107); Carbon Dioxide 26.1 mEq/L (21-32); Glucose 96 MG/DL (70-110); LIPASE 209 U/L (73-393); Potassium 4.5 mEq/L (3.5-5.1); SGOT/AST 15 U/L (15-37); SGPT/ALT 15 U/L (12-78); SODIUM 136 mEq/L (136-145)
[2017-06-08 14:24] VITALS: BP 123/75; PULSE 78
[2017-06-08] MEDS ORDERED: BABY ASPIRIN 81 MG CHEW PO ONE (14:28)
[2017-06-08] MEDS ORDERED: BABY ASPIRIN 81 MG CHEW ONE (14:33)
[2017-06-08 15:05] VITALS: O2SAT 98
== END 2017-06-08 15:17 | disposition home or self-care (01) ==
LOC: ED 12:54
DX: R10.12 Left upper quadrant pain (principal); R07.89 Other chest pain; E11.9 Type 2 diabetes mellitus without complications; Z79.899 Other long term (current) drug therapy
CPT/HCPCS: 36000; 36415; 71010; 80053; 81002; 82150; 83690; 84484; 84703; 85025; 85379; 93005; 93041; 96360; 99284; A9270-GY

== ENCOUNTER 2018-05-14 18:07 | Emergency (ER) | payer OTHER ==
[2018-05-14 18:28] VITALS: O2SAT 99
[2018-05-14] MEDS ORDERED: BENADRYL 50 MG/ML IM ONE (18:42)
[2018-05-14] MEDS ORDERED: TORAdol 30 mg Injection IM ONE (18:42)
--- NOTE | 2018-05-14 18:47 | ERPHSYRPT ---
- History of Present Illness Patient Subjective Stated Complaint: pt here for a migraine for 2 days now unrelieved by otc meds. feels nauseated Triage Nursing Assessment: pt alert, resp easy, skin w/d/p, moves all ext well, states pain worse to left side of face Timing/Duration: day(s) (2 DAYS) Severity: moderate Modifying Factors: Improves With: nothing Associated Symptoms: nausea, headaches, other (PHOTOPHOBIA), No vomiting, No abdominal pain, No shortness of breath, No heartburn, No diaphoresis, No cough, No chills, No chest pain, No fever, No loss of appetite, No malaise, No rash, No syncope, No seizure, No weakness Hx Tetanus, Diphtheria Vaccination/Date Given: Yes Hx Influenza Vaccination/Date Given: No Hx Pneumococcal Vaccination/Date Given: No Immunizations Up to Date: Yes <MENDOZA WILLS - Last Filed: 05/14/18 19:12> <FLORECITA MEYER - Last Filed: 05/14/18 19:44> - History of Present Illness Time Seen by Provider: 05/14/18 18:37 Physician History: This is a 42-year-old white female with history of migraines, asthma, diabetes, fibromyalgia, anxiety, depression, reflux, metabolic X syndrome. She arrives with complaint of frontal headache symptoms for 2 days photophobia and nausea . No fevers. Patient states she does get these headaches from time to time they usually respond to Toradol and Benadryl. Past medical history includes migraines, asthma, diabetes type 2, fibromyalgia, reflux, anxiety, depression, metabolic X Past surgical history includes , LEEP, D&C, tonsillectomy and adenoidectomy . Social history includes tobacco use (MENDOZA WILLS) Allergies/Adverse Reactions: haloperidol [From Haldol] Allergy (Mild, Verified 05/14/18 18:29) "CAN'T MOVE AT ALL FOR 3 DAYS" Home Medications: Alprazolam 1 mg [Xanax 1 mg] 1 mg PO TIDPRN PRN 11/07/15 [History] Ergocalciferol (Vitamin D2) [Vitamin D] 50,000 unit PO WEEKLY 07/03/16 [History] Celecoxib [Celebrex] 200 mg PO HS 09/02/16 [History] Phentermine HCl [Adipex-P] 37.5 mg DAILY 05/14/18 [History] - Review of Systems Constitutional: No Fever, No Chills Eyes: Photophobia, No Discharge, No Eye Pain, No Eye Redness, No Itchy, No Tearing, No Vision Changes, No Double Vision, No Foreign Body Sensation Ears, Nose, & Throat: No Symptoms Respiratory: No Cough, No Dyspnea Cardiac: No Chest Pain, No Edema, No Syncope Abdominal/Gastrointestinal: No Abdominal Pain, No Nausea, No Vomiting, No Diarrhea Genitourinary Symptoms: No Dysuria Musculoskeletal: No Back Pain, No Neck Pain Skin: No Rash Neurological: Headache, No Dizziness, No Focal Weakness, No Gait Changes, No Irritability, No Lethargy, No Paralysis, No Parasthesia, No Seizure, No Sensory Changes, No Speech Changes, No Tics, No Tremors, No Vertigo Psychological: No Symptoms Endocrine: No Symptoms All Other Systems: Reviewed and Negative <MENDOZA WILLS - Last Filed: 05/14/18 19:12> - Past Medical History Pertinent Past Medical History: Yes Neurological History: Migraines ENT History: No Pertinent History Cardiac History: No Pertinent History Respiratory History: Asthma Endocrine Medical History: Hypoglycemia Musculoskeletal History: Fibromyalgia GI Medical History: GERD History: No Pertinent History Psycho-Social History: Anxiety, Depression Female Reproductive Disorders: Fibroids Other Medical History: FIBROMYALGIA, ANXIETY DISORDER. metabolic X - Past Surgical History Past Surgical History: Yes Neuro Surgical History: No Pertinent History Cardiac: No Pertinent History Respiratory: No Pertinent History Gastrointestinal: No Pertinent History Genitourinary: No Pertinent History Musculoskeletal: No Pertinent History Female Surgical History: Hysterectomy, Section Other Surgical History: tonsillectomy - leep - d and c - Social History Smoking Status: Current every day smoker How long have you smoked: 4 years Exposure to second hand smoke: Yes Alcohol Use: None Drug Use: none Patient Lives Alone: No Significant Family History: hypertension - Female History Hx Last Menstrual Period: hyster Hx Now: No <MENDOZA WILLS - Last Filed: 05/14/18 19:12> - Physical Exam General Appearance: moderate distress, alert Eye Exam: PERRL/EOMI, eyes nml inspection, photophobia, other (fUNDI ARE UNREMARKABLE) Ears, Nose, Throat Exam: normal ENT inspection, TMs normal, pharynx normal, moist mucous membranes Neck Exam: normal inspection, non-tender, supple, full range of motion Respiratory Exam: normal breath sounds, lungs clear, No respiratory distress Cardiovascular Exam: regular rate/rhythm, normal heart sounds, normal peripheral pulses Gastrointestinal/Abdomen Exam: soft, normal bowel sounds, No tenderness, No mass Back Exam: normal inspection, normal range of motion, No CVA tenderness, No vertebral tenderness Extremity Exam: normal inspection, normal range of motion, pelvis stable Neurologic Exam: alert, oriented x 3, cooperative, cellar hand II-XII nml as tested, normal mood/affect, nml cerebellar function, nml station & gait, sensation nml, No motor deficits Skin Exam: normal color, warm, dry, No rash SpO2 Interpretation: normal (99%) SpO2: 99 Oxygen Delivery: Room Air <MENDOZA WILLS - Last Filed: 05/14/18 19:12> - Nursing Vital Signs Nursing Vital Signs: Initial Vital Signs Temperature 98.2 F 05/14/18 18:22 Pulse Rate 89 05/14/18 18:22 Respiratory Rate 18 05/14/18 18:22 Blood Pressure 155/115 05/14/18 18:22 O2 Sat by Pulse Oximetry 99 05/14/18 18:22 Pain Scale Pain Intensity 10 Ordered Tests: Medication Summary Discontinued Medications Generic Name Dose Route Start Last Admin Trade Name [place] PRN Reason Stop Dose Admin Diphenhydramine HCl 50 mg 05/14/18 18:42 05/14/18 18:54 Benadryl 50 Mg/Ml IM 05/14/18 18:43 50 mg STAT ONE Administration Diphenhydramine HCl Confirm 05/14/18 18:53 Benadryl 50 Mg/Ml Administered 05/14/18 18:54 Dose 50 mg .ROUTE .STK-MED ONE Ketorolac Tromethamine 60 mg 05/14/18 18:42 05/14/18 18:54 Toradol 30 Mg Injection IM 05/14/18 18:43 60 mg STAT ONE Administration Ketorolac Tromethamine Confirm 05/14/18 18:53 Toradol 30 Mg Injection Administered 05/14/18 18:54 Dose 60 mg .ROUTE .STK-MED ONE - Progress Progress: improved <MENDOZA WILLS - Last Filed: 05/14/18 19:12> - Progress Progress: improved Counseled pt/family regarding: diagnosis <FLORECITA MEYER - Last Filed: 05/14/18 19:44> - Progress Progress Note: 05/14/18 19:11 The patient's case has been discussed with Dr. Meyer, He will assume care of this patient secondary to shift change. (MENDOZA WILLS) 05/14/18 19:30 Pt care discussed and care accepted from Dr Wills at 19:00. 05/14/18 19:42 After toradol 60 mg and benadryl 50 mg by IM, pt feeling better and wishes to go home. (FLORECITA MEYER) <MENDOZA WILLS - Last Filed: 05/14/18 19:12> - Departure Time of Disposition: 19:43 Departure Disposition: Home Critical Care Time: No <FLORECITA MEYER - Last Filed: 05/14/18 19:44> - Departure Clinical Impression: Headache Condition: Stable Referrals: RODRIGO NICHOLSON [Primary Care Provider] - Additional Instructions: You have a headache. As requested, you were given Toradol 60 mg and Benadryl 50 mg by IM in the ER. Your headache has improved. Go home and rest tonight. If needed, follow-up with your primary or return to the ER.
[2018-05-14] MEDS ORDERED: TORAdol 30 mg Injection ONE (18:53)
[2018-05-14] MEDS ORDERED: BENADRYL 50 MG/ML ONE (18:53)
[2018-05-14 19:48] VITALS: BP 144/99; PULSE 94
== END 2018-05-14 19:51 | disposition home or self-care (01) ==
LOC: ED 18:07
DX: R51 Headache (principal); R11.0 Nausea
CPT/HCPCS: 96372; 99284; J1200; J1885

== ENCOUNTER 2018-06-23 12:27 | Emergency (ER) | payer OTHER ==
[2018-06-23] MEDS ORDERED: TORAdol 30 mg Injection IM ONE (12:56)
--- NOTE | 2018-06-23 12:56 | ERPHSYRPT ---
- History of Present Illness Time Seen by Provider: 06/23/18 12:52 Source: patient Exam Limitations: no limitations Patient Subjective Stated Complaint: pt reports waking approx 0400 with severe left sided neck pain that radiates into her shoulder blades as well as her left anterior chest. pt reports pain is increased with movement of her head and upper extremities. pt denies injury, pt states "maybe i slept wrong". Triage Nursing Assessment: pt is aox3, pupils perrl, afebrile, resps easy and non labored, lung sounds are clear throughout all chicas, radial pulses strong and equal, pt sensation intact, ROM is limited due to pain with movement of the head, pt skin pink warm dry. no injury appreciated. Physician History: The patient is a 43-year-old female complaining that she woke up with pain on both sides of her neck, pain in her upper back, and sometimes pain with movement in her left upper chest. She tried a warm shower, rubs, and over-the- counter medicines without relief. She did not have any trauma the day before. Her past medical history significant for fibromyalgia, GERD. Timing/Duration: today, worse Severity: moderate Modifying Factors: Improves With: nothing Associated Symptoms: denies symptoms, No nausea, No vomiting, No abdominal pain , No shortness of breath, No headaches, No syncope, No weakness Allergies/Adverse Reactions: haloperidol [From Haldol] Allergy (Mild, Verified 06/23/18 12:47) "CAN'T MOVE AT ALL FOR 3 DAYS" Home Medications: Alprazolam 1 mg [Xanax 1 mg] 1 mg PO TIDPRN PRN 11/07/15 [History] Ergocalciferol (Vitamin D2) [Vitamin D] 50,000 unit PO WEEKLY 07/03/16 [History] Celecoxib [Celebrex] 200 mg PO HS 09/02/16 [History] Albuterol Common Canister [Proventil Common Canister] 90 mcg IH Q4HPRN PRN 06/23/18 [History] PANTOPRAZOLE 40 mg Tablet [Protonix 40MG Tablet] 40 mg PO QAM 06/23/18 [ History] Hx Tetanus, Diphtheria Vaccination/Date Given: Yes Hx Influenza Vaccination/Date Given: No Hx Pneumococcal Vaccination/Date Given: No Immunizations Up to Date: Yes - Review of Systems Constitutional: No Fever, No Chills Eyes: No Symptoms Ears, Nose, & Throat: No Symptoms Respiratory: No Cough, No Dyspnea Cardiac: No Chest Pain, No Edema, No Syncope Abdominal/Gastrointestinal: No Abdominal Pain, No Nausea, No Vomiting, No Diarrhea Genitourinary Symptoms: No Dysuria Musculoskeletal: Back Pain, Neck Pain Skin: No Rash Neurological: No Dizziness, No Focal Weakness, No Sensory Changes Psychological: No Symptoms Endocrine: No Symptoms Hematologic/Lymphatic: No Symptoms Immunological/Allergic: No Symptoms All Other Systems: Reviewed and Negative - Past Medical History Pertinent Past Medical History: Yes Neurological History: Migraines ENT History: No Pertinent History Cardiac History: No Pertinent History Respiratory History: Asthma Endocrine Medical History: Hypoglycemia Musculoskeletal History: Fibromyalgia GI Medical History: GERD History: No Pertinent History Psycho-Social History: Anxiety, Depression Female Reproductive Disorders: Fibroids Other Medical History: FIBROMYALGIA, ANXIETY DISORDER. metabolic X - Past Surgical History Past Surgical History: Yes Neuro Surgical History: No Pertinent History Cardiac: No Pertinent History Respiratory: No Pertinent History Gastrointestinal: No Pertinent History Genitourinary: No Pertinent History Musculoskeletal: No Pertinent History Female Surgical History: Hysterectomy, Section Other Surgical History: tonsillectomy - leep - d and c - Social History Smoking Status: Current every day smoker How long have you smoked: 4 years Exposure to second hand smoke: Yes Alcohol Use: None Drug Use: none Patient Lives Alone: No Significant Family History: hypertension - Female History Hx Last Menstrual Period: 2017 Hx Now: No - Nursing Vital Signs Nursing Vital Signs: Initial Vital Signs Temperature 98.2 F 06/23/18 12:37 Pulse Rate 75 06/23/18 12:37 Respiratory Rate 20 06/23/18 12:37 Blood Pressure 150/99 06/23/18 12:37 O2 Sat by Pulse Oximetry 99 06/23/18 12:37 Pain Scale Pain Intensity 10 - Physical Exam General Appearance: moderate distress, obese Eye Exam: PERRL/EOMI, eyes nml inspection Ears, Nose, Throat Exam: normal ENT inspection, TMs normal, pharynx normal, moist mucous membranes Neck Exam: limited range of motion (There is tenderness to palpation of the lateral neck muscles on both sides. There is mildly limited rotation of the neck due to the pain in the neck muscles. The patient can easily touch her chin to her chest. There is also tenderness to the muscles of the upper back bilaterally as well. There is mild tenderness to palpation of the upper left chest.) Respiratory Exam: normal breath sounds, lungs clear, No respiratory distress Cardiovascular Exam: regular rate/rhythm, normal heart sounds, normal peripheral pulses Gastrointestinal/Abdomen Exam: soft, normal bowel sounds, No tenderness, No mass Pelvic Exam: not done Rectal Exam: not done Back Exam: muscle spasm Extremity Exam: normal inspection, normal range of motion, pelvis stable Neurologic Exam: alert, oriented x 3, cooperative, normal mood/affect, nml cerebellar function, nml station & gait, sensation nml, No motor deficits Skin Exam: normal color, warm, dry, No rash Lymphatic Exam: No adenopathy SpO2 Interpretation: normal SpO2: 99 Oxygen Delivery: Room Air - Radiology Exams C-Spine X-ray Interpretation: Interpreted by me, Negative, No Fracture, No Subluxation, Other (reversal of normal lordosis of c-spine) Ordered Tests: Active Orders 24 hr Category Date Time Status CERVICAL SPINE (2 OR 3 VIEW) Stat Exams 06/23/18 12:56 Ordered Medication Summary Discontinued Medications Generic Name Dose Route Start Last Admin Trade Name Freq PRN Reason Stop Dose Admin Ketorolac Tromethamine 60 mg 06/23/18 12:56 06/23/18 13:15 Toradol 30 Mg Injection IM 06/23/18 12:57 60 mg STAT ONE Administration Ketorolac Tromethamine Confirm 06/23/18 13:12 Toradol 30 Mg Injection Administered 06/23/18 13:13 Dose 60 mg .ROUTE .[facility] ONE - Progress Progress: improved Progress Note: 06/23/18 13:45 mild improvement with toradol 60 mg IM. 06/23/18 13:46 The patient states that she has some muscle cramping when she stretches her legs. I offered a lab draw to check her serum electrolytes. The patient declined. She states she wants to go home and go to sleep. Counseled pt/family regarding: diagnosis, rad results - Departure Time of Disposition: 13:47 Departure Disposition: Home Clinical Impression: Muscle spasms of neck Condition: Stable Critical Care Time: No Referrals: RODRIGO NICHOLSON [Primary Care Provider] - Additional Instructions: You have neck muscle and upper back muscle spasms. You were given Toradol 60 mg by IM in the ER. Your cervical spine x-ray was unremarkable. You were offered lab work to check your serum electrolytes but you declined. Take Flexeril 10 mg every 8 hours as needed for muscle spasm and pain. Also you have Xanax at home. Take Xanax as prescribed. This is also a muscle relaxer. Follow-up with your primary medical doctor as needed. Prescriptions: Cyclobenzaprine HCl [Flexeril] 10 mg PO Q8H PRN PRN #10 tablet PRN Reason: Muscle Spasms
[2018-06-23] MEDS ORDERED: TORAdol 30 mg Injection ONE (13:12)
[2018-06-23 14:01] VITALS: BP 115/71; PULSE 76; O2SAT 97
--- NOTE | 2018-06-23 22:00 | XRAY ---
Indication: Neck pain. Comparison: April 18, 2017. 3 views of the cervical spine unchanged again demonstrating cervical lordotic straightening. Remaining vertebral body heights and disc spaces maintained. No new/acute findings. Impression: Stable cervical lordotic straightening, positional versus paraspinal spasm.
== END 2018-06-23 14:00 | disposition home or self-care (01) ==
LOC: ED 12:27
DX: M62.830 Muscle spasm of back (principal); M54.2 Cervicalgia; Z79.899 Other long term (current) drug therapy
CPT/HCPCS: 72040; 96372; 99284; J1885

== ENCOUNTER 2018-08-02 10:51 | Emergency (ER) | payer OTHER ==
--- NOTE | 2018-08-02 11:20 | ERPHSYRPT ---
- History of Present Illness Time Seen by Provider: 08/02/18 11:13 Historian: patient Exam Limitations: no limitations Physician History: This is a 43-year-old white female with history of migraines, asthma, hypoglycemia, fibromyalgia, GERD, anxiety, depression Patient arrives with complaint of waking up with rapid heart rate about 3 AM for the last couple of days she states she had pain in the substernal area which was described as sharp this is gone away but today since around 6:00 she' s been having a burning pain overlying her left breast she is not short of breath no nausea no vomiting She states she continues with this burning pain she describes as lasting 5 seconds in duration Past surgical history includes migraines, asthma, hypoglycemia, fibromyalgia, GERD, anxiety, depression, fibroids old chart shows metabolic X but patient is not sure of this Past surgical history includes hysterectomy, and tonsillectomy Social history patient has a history of tobacco use however she states that she quit smoking 2 weeks ago she states she has occasional alcohol use she denies illicit drug use Timing/Duration: day(s) (2 days) Activities at Onset: rest Quality: burning, sharpness Location: substernal, other (left anterior chest) Chest Pain Radiation: no radiation Severity of Pain-Max: moderate Severity of Pain-Current: mild Modifying Factors: Improves With: nothing Associated Symptoms: palpitations, No nausea, No vomiting, No heartburn, No abdominal pain, No shortness of breath, No cough, No hurts to breathe, No diaphoresis, No chills, No fever, No fatigue, No weakness, No swelling/lump in chest, No syncope, No rash, No headache, No dizziness, No edema, No back pain Nitro Today/Relief: no nitro taken today Aspirin Treatment Today: 81 mg x 4, provided by ED Allergies/Adverse Reactions: haloperidol [From Haldol] Allergy (Mild, Verified 06/23/18 12:47) "CAN'T MOVE AT ALL FOR 3 DAYS" Home Medications: Alprazolam 1 mg [Xanax 1 mg] 1 mg PO TIDPRN PRN 11/07/15 [History] Ergocalciferol (Vitamin D2) [Vitamin D] 50,000 unit PO WEEKLY 07/03/16 [History] Celecoxib [Celebrex] 200 mg PO HS 09/02/16 [History] Albuterol Common Canister [Proventil Common Canister] 90 mcg IH Q4HPRN PRN 06/23/18 [History] PANTOPRAZOLE 40 mg Tablet [Protonix 40MG Tablet] 40 mg PO QAM 06/23/18 [ History] Hx Tetanus, Diphtheria Vaccination/Date Given: Yes Hx Influenza Vaccination/Date Given: No Hx Pneumococcal Vaccination/Date Given: No - Review of Systems Constitutional: No Fever, No Chills Eyes: No Symptoms Ears, Nose, & Throat: No Symptoms Respiratory: No Cough, No Dyspnea Cardiac: Chest Pain (burning chest pain left anterior chest), Palpitations Abdominal/Gastrointestinal: No Abdominal Pain, No Nausea, No Vomiting, No Diarrhea Genitourinary Symptoms: No Dysuria Musculoskeletal: No Back Pain, No Neck Pain Skin: No Rash Neurological: No Dizziness, No Focal Weakness, No Sensory Changes Psychological: No Symptoms Endocrine: No Symptoms All Other Systems: Reviewed and Negative - Past Medical History Pertinent Past Medical History: Yes Neurological History: Migraines ENT History: No Pertinent History Cardiac History: No Pertinent History Respiratory History: Asthma Endocrine Medical History: Hypoglycemia Musculoskeletal History: Fibromyalgia GI Medical History: GERD History: No Pertinent History Psycho-Social History: Anxiety, Depression Female Reproductive Disorders: Fibroids Other Medical History: FIBROMYALGIA, ANXIETY DISORDER. metabolic X - Past Surgical History Past Surgical History: Yes Neuro Surgical History: No Pertinent History Cardiac: No Pertinent History Respiratory: No Pertinent History Gastrointestinal: No Pertinent History Genitourinary: No Pertinent History Musculoskeletal: No Pertinent History Female Surgical History: Hysterectomy, Section Other Surgical History: tonsillectomy - leep - d and c - Social History Smoking Status: Current every day smoker How long have you smoked: 4 years Exposure to second hand smoke: Yes Alcohol Use: None Drug Use: none Patient Lives Alone: No Significant Family History: hypertension - Nursing Vital Signs Nursing Vital Signs: Initial Vital Signs Temperature 97.8 F 08/02/18 10:59 Pulse Rate 78 08/02/18 10:59 Respiratory Rate 22 08/02/18 10:59 Blood Pressure 128/76 08/02/18 10:59 O2 Sat by Pulse Oximetry 98 08/02/18 10:59 Pain Scale Pain Intensity 3 - Physical Exam General Appearance: mild distress, alert, anxiety Eye Exam: PERRL/EOMI, eyes nml inspection Ears, Nose, Throat Exam: normal ENT inspection, moist mucous membranes Neck Exam: normal inspection, non-tender, supple, full range of motion Respiratory Exam: normal breath sounds, lungs clear, No respiratory distress Cardiovascular Exam: regular rate/rhythm, normal heart sounds, capillary refill <2 sec Gastrointestinal/Abdomen Exam: soft, No tenderness, No mass Back Exam: normal inspection, No CVA tenderness, No vertebral tenderness Extremity Exam: normal inspection, normal range of motion Neurologic Exam: alert, oriented x 3, cooperative, public stenographer II-XII nml as tested ( yes but she), normal mood/affect, sensation nml, No motor deficits Skin Exam: normal color, warm, dry SpO2 Interpretation: normal (98of 98 severe symptoms ti%) - Course Nursing assessment & vital signs reviewed: Yes EKG Interpreted by Me: RATE (70 bpm), Sinus Rhythm, NORMAL AXIS, Other (EKG: Sinus rhythm, 70 bpm, normal axis, no acute ST or T wave changes, essentially normal EKG, compared to June 23, 2018) - Radiology Exams Chest X-ray Interpretation: Discussed w/ radiologist (chest x-ray: Normal heart, lungs , and bony thorax with incidental tiny calcified granulomas.) Ordered Tests: Active Orders 24 hr Category Date Time Status Integrated Campaign Manager STAT Care 08/02/18 11:13 Active EKG-ER Only STAT Care 08/02/18 11:13 Active IV Insertion STAT Care 08/02/18 11:13 Active Pulse Oximetry (ED) STAT Care 08/02/18 11:13 Active CHEST 1 VIEW (PORTABLE) Stat Exams 08/02/18 11:13 Completed AMYLASE Stat Lab 08/02/18 11:25 Completed CBC W DIFF Stat Lab 08/02/18 11:25 Completed CMP Stat Lab 08/02/18 11:25 Completed D-DIMER QUANTITATION Stat Lab 08/02/18 11:25 Completed LIPASE Stat Lab 08/02/18 11:25 Completed TROPONIN Q3H Lab 08/02/18 11:25 Completed TROPONIN Q3H Lab 08/02/18 14:15 Ordered TROPONIN Q3H Lab 08/02/18 17:15 Ordered TROPONIN Q3H Lab 08/02/18 20:15 Ordered TROPONIN Q3H Lab 08/02/18 23:15 Ordered Medication Summary Generic Name Dose Route Start Last Admin Trade Name Freq PRN Reason Stop Dose Admin Acetaminophen/Codeine Phosphate 1 tab 02/07/19 12:19 Tylenol #3 Tablet PO 08/02/18 12:20 SENT HOME W/ PATIENT ONE Lab/Rad Data: Laboratory Result Diagrams 08/02/18 11:25 08/02/18 11:25 Laboratory Results 08/02/18 08/02/18 08/02/18 Range/Units 11:25 11:25 11:25 WBC (4.0-10.5) K/mm3 RBC (4.1-5.4) M/mm3 Hgb (12.0-16.0) gm/dl Hct (35-47) % MCV (78-100) fl MCH (26-32) pg MCHC (32-36) g/dl RDW (11.5-14.0) % Plt Count (150-450) K/mm3 MPV (6-9.5) fl Gran % (36.0-66.0) % Eos # (Auto) (0-0.5) Absolute Lymphs (auto) (1.0-4.6) Absolute Monos (auto) (0.0-1.3) Lymphocytes % (24.0-44.0) % Monocytes % (0.0-12.0) % Eosinophils % (0.00-5.0) % Basophils % (0.0-0.4) % Absolute Granulocytes (1.4-6.9) Basophils # (0-0.4) D-Dimer < 209 L (215-500) ng/mL Sodium 138 (137-145) mmol/L Potassium 4.3 (3.5-5.1) mmol/L Chloride 101 (98-107) mmol/L Carbon Dioxide 27 (22-30) mmol/L Anion Gap 14.3 (5-15) MEQ/L BUN 13 (7-17) mg/dL Creatinine 0.65 (0.52-1.04) mg/dL Estimated GFR > 60.0 ML/MIN Glucose 116 H (74-106) mg/dL Calcium 9.2 (8.4-10.2) mg/dL Total Bilirubin 0.80 (0.2-1.3) mg/dL AST 19 (14-36) U/L ALT 20 (0-35) U/L Alkaline Phosphatase 80 (38-126) U/L Troponin I < 0.012 (0.000-0.034) ng/mL Serum Total Protein 7.4 (6.3-8.2) g/dL Albumin 4.5 (3.5-5.0) g/dL Amylase 68 (30-110) U/L Lipase 119 (23-300) U/L 08/02/18 Range/Units 11:25 WBC 8.7 (4.0-10.5) K/mm3 RBC 4.25 (4.1-5.4) M/mm3 Hgb 12.9 (12.0-16.0) gm/dl Hct 39.2 (35-47) % MCV 92.2 (78-100) fl MCH 30.4 (26-32) pg MCHC 32.9 (32-36) g/dl RDW 13.6 (11.5-14.0) % Plt Count 304 (150-450) K/mm3 MPV 9.6 H (6-9.5) fl Gran % 69.2 H (36.0-66.0) % Eos # (Auto) 0.09 (0-0.5) Absolute Lymphs (auto) 1.87 (1.0-4.6) Absolute Monos (auto) 0.71 (0.0-1.3) Lymphocytes % 21.4 L (24.0-44.0) % Monocytes % 8.1 (0.0-12.0) % Eosinophils % 1.0 (0.00-5.0) % Basophils % 0.3 (0.0-0.4) % Absolute Granulocytes 6.03 (1.4-6.9) Basophils # 0.03 (0-0.4) D-Dimer (215-500) ng/mL Sodium (137-145) mmol/L Potassium (3.5-5.1) mmol/L Chloride (98-107) mmol/L Carbon Dioxide (22-30) mmol/L Anion Gap (5-15) MEQ/L BUN (7-17) mg/dL Creatinine (0.52-1.04) mg/dL Estimated GFR ML/MIN Glucose (74-106) mg/dL Calcium (8.4-10.2) mg/dL Total Bilirubin (0.2-1.3) mg/dL AST (14-36) U/L ALT (0-35) U/L Alkaline Phosphatase (38-126) U/L Troponin I (0.000-0.034) ng/mL Serum Total Protein (6.3-8.2) g/dL Albumin (3.5-5.0) g/dL Amylase (30-110) U/L Lipase (23-300) U/L - Progress Progress: improved Air Movement: fair Progress Note: 08/02/18 12:20 Patient's vitals, EKG, chest x-ray, CBC, CMP, d-dimer, troponin all normal. Patient states she still has intermittent sharp chest pains. I've offered to have patient stay and repeat her troponin she does not want to do this. I considered giving the patient Toradol however she is on Celebrex chronically. Will give patient one tablet of [place] to take home. She is return home rest plenty of fluids Tylenol every 4 hours as needed for pain. Follow-up with her family doctor. She is to return for acute distress or for severe symptoms. - Departure Time of Disposition: 12:21 Departure Disposition: Home Clinical Impression: Palpitations, Non-cardiac chest pain Condition: Fair Critical Care Time: No Referrals: DOCTOR,NO FAMILY [Primary Care Provider] - Additional Instructions: Return home, rest, plenty of fluids. Tylenol every 4 hours as needed for pain. Follow-up with your family doctor. , Return for acute distress or for severe symptoms.
[2018-08-02 11:38] LABS: BASOPHIL % 0.3 % (0.0-0.4); Basophil (Absolute #) 0.03 (0-0.4); Eosinophil (Absolute #) 0.09 (0-0.5); Granulocyte Absolute (ANC) 6.03 (1.4-6.9); Granulocytes % 69.2 % (36.0-66.0); Hematocrit 39.2 % (35-47); Hemoglobin 12.9 gm/dl (12.0-16.0); Lymphocyte (Absolute #) 1.87 (1.0-4.6); Lymphocytes % 21.4 % (24.0-44.0); Mean Cell Volume 92.2 fl (78-100); Mean Corpuscular Hemoglobin 30.4 pg (26-32); Mean Corpuscular Hgb Concent. 32.9 g/dl (32-36); Mean Platelet Volume 9.6 fl (6-9.5); Monocyte (Absolute #) 0.71 (0.0-1.3); Monocytes % 8.1 % (0.0-12.0); Platelet Count 304 K/mm3 (150-450); Red Blood Count 4.25 M/mm3 (4.1-5.4); Red Cell Distribution Width 13.6 % (11.5-14.0); White Blood Count 8.7 K/mm3 (4.0-10.5)
--- NOTE | 2018-08-02 11:40 | XRAY ---
Indication: Chest pain. Comparison: June 08, 2017. Portable chest again demonstrates normal heart, lungs, and bony thorax with incidental tiny calcified granulomas.
[2018-08-02 11:44] LABS: ALBUMIN 4.5 g/dL (3.5-5.0); ALKALINE PHOSPHATASE 80 U/L (38-126); AMYLASE 68 U/L (30-110); ANION GAP 14.3 MEQ/L (5-15); BLOOD UREA NITROGEN 13 mg/dL (7-17); CHLORIDE 101 mmol/L (98-107); Calcium 9.2 mg/dL (8.4-10.2); Carbon Dioxide 27 mmol/L (22-30); Creatinine 1 0.65 mg/dL (0.52-1.04); Glucose 116 mg/dL (74-106); LIPASE 119 U/L (23-300); Potassium 4.3 mmol/L (3.5-5.1); SGOT/AST 19 U/L (14-36); SGPT/ALT 20 U/L (0-35); SODIUM 138 mmol/L (137-145); Total Protein 7.4 g/dL (6.3-8.2)
[2018-08-02] MEDS ORDERED: Tylenol #3 Tablet PO ONE (12:19)
[2018-08-02] MEDS ORDERED: Tylenol #3 Tablet ONE (12:40)
[2018-08-02 12:58] VITALS: BP 126/80; PULSE 65; O2SAT 96
== END 2018-08-02 12:58 | disposition home or self-care (01) ==
LOC: ED 10:51
DX: R00.2 Palpitations (principal); R07.89 Other chest pain; J45.909 Unspecified asthma, uncomplicated; M79.7 Fibromyalgia; K21.9 Gastro-esophageal reflux disease without esophagitis; F41.8 Other specified anxiety disorders; Z79.899 Other long term (current) drug therapy
CPT/HCPCS: 36000; 36415; 71045; 80053; 82150; 83690; 84484; 85025; 85379; 93005; 93041; 99284; A9270-GY

== ENCOUNTER 2018-08-17 20:36 | Emergency (ER) | payer OTHER ==
[2018-08-17] MEDS ORDERED: Norflex 60 MG/2 ML IM ONE (21:12)
[2018-08-17] MEDS ORDERED: TORAdol 30 mg Injection IV ONE (21:12)
[2018-08-17] MEDS ORDERED: Sodium Chloride 0.9% 1000 ML 1,000 ML IV SCH (21:15)
[2018-08-17] MEDS ORDERED: Norflex 60 MG/2 ML ONE (21:21)
[2018-08-17] MEDS ORDERED: Sodium Chloride 0.9% 1000 ML 1,000 ML ONE (21:21)
[2018-08-17] MEDS ORDERED: TORAdol 30 mg Injection ONE (21:21)
--- NOTE | 2018-08-17 21:27 | ERPHSYRPT ---
- History of Present Illness Time Seen by Provider: 08/17/18 20:55 Historian: patient Exam Limitations: clinical condition Patient Subjective Stated Complaint: pt states she has been having pain in bilat flanks. neck, and chest. states she feels liker her heart is racing and "just feels bad" Triage Nursing Assessment: pt alert and oriented, answers questions approp. pt tearful at times. respirations nonlabored with lungs cta. pt ambulatory with steady gait noted. heart rate 80 sinus rhythm on monitor. Physician History: PATIENT WITH A HISTORY OF ANXIETY, ASTHMA, FIBROMYALGIA COMPLAINS OF BILATERAL FLANK PAIN, NECK PAIN AND SLIGHT CHEST DISCOMFORT OVER THE PAST HOUR. ALSO COMPLAINS OF HAVING ANXIETY TONIGHT, FEELS HER HEART IS RACING, HAS OCCASIONAL PAIN UPON INSPIRATION. DENIES COUGH, DYSPNEA, FEVER, DIAPHORESIS, NAUSEA, EMESIS OR DIARRHEA. ADMITS TO TAKING XANAX 0.5MG. PATIENT ALSO COMPLAINS OF SWELLING IN HER LEGS AND FEET. Timing/Duration: hour(s) Activities at Onset: none Quality: sharpness Location: back (BILATERAL FLANKS, NECK) Chest Pain Radiation: no radiation Severity of Pain-Max: moderate Severity of Pain-Current: moderate Modifying Factors: Improves With: breathing, movement Associated Symptoms: hurts to breathe, edema Prior Chest Pain/Cardiac Workup: recently seen/treated (2 WEEKS AGO FOR CHEST PAIN AND UPPER BACK PAIN) Nitro Today/Relief: no nitro taken today Aspirin Treatment Today: no aspirin today Allergies/Adverse Reactions: haloperidol [From Haldol] Allergy (Mild, Verified 08/17/18 21:07) "CAN'T MOVE AT ALL FOR 3 DAYS" Home Medications: Alprazolam 1 mg [Xanax 1 mg] 1 mg PO TIDPRN PRN 11/07/15 [History] Ergocalciferol (Vitamin D2) [Vitamin D] 50,000 unit PO WEEKLY 07/03/16 [History] Celecoxib [Celebrex] 200 mg PO DAILY 09/02/16 [History] Albuterol Common Canister [Proventil Common Canister] 90 mcg IH Q4HPRN PRN 06/23/18 [History] PANTOPRAZOLE 40 mg Tablet [Protonix 40MG Tablet] 40 mg PO QAM 06/23/18 [ History] Hx Tetanus, Diphtheria Vaccination/Date Given: Yes Hx Influenza Vaccination/Date Given: No Hx Pneumococcal Vaccination/Date Given: No Immunizations Up to Date: Yes - Past Medical History Pertinent Past Medical History: Yes Neurological History: Migraines ENT History: No Pertinent History Cardiac History: No Pertinent History Respiratory History: Asthma Endocrine Medical History: Hypoglycemia Musculoskeletal History: Fibromyalgia GI Medical History: GERD History: No Pertinent History Psycho-Social History: Anxiety, Depression Female Reproductive Disorders: Fibroids Other Medical History: FIBROMYALGIA, ANXIETY DISORDER. metabolic X - Past Surgical History Past Surgical History: Yes Neuro Surgical History: No Pertinent History Cardiac: No Pertinent History Respiratory: No Pertinent History Gastrointestinal: No Pertinent History Genitourinary: No Pertinent History Musculoskeletal: No Pertinent History Female Surgical History: Hysterectomy, Section Other Surgical History: tonsillectomy - leep - d and c - Social History Smoking Status: Former smoker How long have you smoked: 4 years Exposure to second hand smoke: Yes Alcohol Use: None Drug Use: none Patient Lives Alone: No Significant Family History: hypertension - Female History Hx Last Menstrual Period: hyster- october 2017 Hx Now: No - Nursing Vital Signs Nursing Vital Signs: Initial Vital Signs Temperature 99.0 F 08/17/18 20:46 Pulse Rate 86 08/17/18 20:46 Respiratory Rate 20 08/17/18 20:46 Blood Pressure 133/87 08/17/18 20:46 Pain Scale Pain Intensity [Left Neck] 4 Pain Intensity 4 - Course EKG Interpreted by Me: RATE, Sinus Rhythm, NORMAL AXIS - Radiology Exams Chest X-ray Interpretation: Interpreted by me, Negative, No Infiltrates Ordered Tests: Active Orders 24 hr Category Date Time Status Table Games Floor Supervisor STAT Care 08/17/18 21:11 Active EKG-ER Only STAT Care 08/17/18 21:11 Active IV Insertion STAT Care 08/17/18 21:11 Active CHEST 1 VIEW (PORTABLE) Stat Exams 08/17/18 21:11 Completed BMP Stat Lab 08/17/18 21:25 Completed CBC W DIFF Stat Lab 08/17/18 21:25 Completed D-DIMER QUANTITATION Stat Lab 08/17/18 21:25 Completed TROPONIN Q3H Lab 08/17/18 21:25 Completed TROPONIN Q3H Lab 08/18/18 00:15 Ordered TROPONIN Q3H Lab 08/18/18 03:15 Ordered TROPONIN Q3H Lab 08/18/18 06:15 Ordered TROPONIN Q3H Lab 08/18/18 09:15 Ordered UA W/RFX UR CULTURE Stat Lab 08/17/18 21:28 Completed Medication Summary Generic Name Dose Route Start Last Admin Trade Name Kenyon PRN Reason Stop Dose Admin Sodium Chloride 1,000 mls @ 50 mls/hr 08/17/18 21:15 08/17/18 21:30 Sodium Chloride 0.9% 1000 Ml IV 09/16/18 21:14 50 mls/hr .Q20H YANI Administration Discontinued Medications Generic Name Dose Route Start Last Admin Trade Name Kenyon PRN Reason Stop Dose Admin Fentanyl Citrate 50 mcg 08/17/18 22:06 08/17/18 22:23 Sublimaze 100 Mcg/2 Ml IV 08/17/18 22:07 50 mcg STAT ONE Administration Fentanyl Citrate Confirm 08/17/18 22:17 Sublimaze 100 Mcg/2 Ml Administered 08/17/18 22:18 Dose 100 mcg .ROUTE .STK-MED ONE Ketorolac Tromethamine 30 mg 08/17/18 21:12 08/17/18 21:33 Toradol 30 Mg Injection IV 08/17/18 21:13 30 mg STAT ONE Administration Ketorolac Tromethamine Confirm 08/17/18 21:21 Toradol 30 Mg Injection Administered 08/17/18 21:22 Dose 30 mg .ROUTE .STK-MED ONE Ondansetron HCl 4 mg 08/17/18 22:05 08/17/18 22:24 Zofran 4 Mg/2 Ml Vial IV 08/17/18 22:06 4 mg STAT ONE Administration Ondansetron HCl Confirm 08/17/18 22:17 Zofran 4 Mg/2 Ml Vial Administered 08/17/18 22:18 Dose 4 mg .ROUTE .STK-MED ONE Orphenadrine Citrate 60 mg 08/17/18 21:12 08/17/18 21:30 Norflex 60 Mg/2 Ml IM 08/17/18 21:13 60 mg STAT ONE Administration Orphenadrine Citrate Confirm 08/17/18 21:21 Norflex 60 Mg/2 Ml Administered 08/17/18 21:22 Dose 60 mg .ROUTE .STK-MED ONE Lab/Rad Data: Laboratory Result Diagrams 08/17/18 21:25 08/17/18 21:25 Laboratory Results 08/17/18 08/17/18 08/17/18 Range/Units 21:28 21:25 21:25 WBC (4.0-10.5) K/mm3 RBC (4.1-5.4) M/mm3 Hgb (12.0-16.0) gm/dl Hct (35-47) % MCV (78-100) fl MCH (26-32) pg MCHC (32-36) g/dl RDW (11.5-14.0) % Plt Count (150-450) K/mm3 MPV (6-9.5) fl Gran % (36.0-66.0) % Eos # (Auto) (0-0.5) Absolute Lymphs (auto) (1.0-4.6) Absolute Monos (auto) (0.0-1.3) Lymphocytes % (24.0-44.0) % Monocytes % (0.0-12.0) % Eosinophils % (0.00-5.0) % Basophils % (0.0-0.4) % Absolute Granulocytes (1.4-6.9) Basophils # (0-0.4) D-Dimer 265 (215-500) ng/mL Sodium (137-145) mmol/L Potassium (3.5-5.1) mmol/L Chloride (98-107) mmol/L Carbon Dioxide (22-30) mmol/L Anion Gap (5-15) MEQ/L BUN (7-17) mg/dL Creatinine (0.52-1.04) mg/dL Estimated GFR ML/MIN Glucose (74-106) mg/dL Calcium (8.4-10.2) mg/dL Troponin I < 0.012 (0.000-0.034) ng/mL Urine Color YELLOW (YELLOW) Urine Appearance CLEAR (CLEAR) Urine pH 6.0 (5-6) Ur Specific Ivins 1.020 (1.005-1.025) Urine Protein NEGATIVE (Negative) Urine Ketones NEGATIVE (NEGATIVE) Urine Blood NEGATIVE (0-5) Blake/ul Urine Nitrite NEGATIVE (NEGATIVE) Urine Bilirubin NEGATIVE (NEGATIVE) Urine Urobilinogen 4 (0-1) mg/dL Ur Leukocyte Esterase NEGATIVE (NEGATIVE) Urine WBC (Auto) 0-2 (0-5) /HPF Urine RBC (Auto) 0-2 (0-2) /HPF U Epithel Cells (Auto) RARE (FEW) /HPF Urine Bacteria (Auto) RARE (NEGATIVE) /HPF Urine Mucus (Auto) SLIGHT (NEGATIVE) /HPF Urine Culture Reflexed NO (NO) Urine Glucose NEGATIVE (NEGATIVE) mg/dL 08/17/18 08/17/18 Range/Units 21:25 21:25 WBC 9.3 (4.0-10.5) K/mm3 RBC 3.61 L (4.1-5.4) M/mm3 Hgb 11.0 L (12.0-16.0) gm/dl Hct 33.3 L (35-47) % MCV 92.2 (78-100) fl MCH 30.4 (26-32) pg MCHC 33.0 (32-36) g/dl RDW 13.1 (11.5-14.0) % Plt Count 270 (150-450) K/mm3 MPV 9.1 (6-9.5) fl Gran % 63.8 (36.0-66.0) % Eos # (Auto) 0.15 (0-0.5) Absolute Lymphs (auto) 2.30 (1.0-4.6) Absolute Monos (auto) 0.91 (0.0-1.3) Lymphocytes % 24.6 (24.0-44.0) % Monocytes % 9.7 (0.0-12.0) % Eosinophils % 1.6 (0.00-5.0) % Basophils % 0.3 (0.0-0.4) % Absolute Granulocytes 5.95 (1.4-6.9) Basophils # 0.03 (0-0.4) D-Dimer (215-500) ng/mL Sodium 138 (137-145) mmol/L Potassium 4.3 (3.5-5.1) mmol/L Chloride 103 (98-107) mmol/L Carbon Dioxide 28 (22-30) mmol/L Anion Gap 11.8 (5-15) MEQ/L BUN 18 H (7-17) mg/dL Creatinine 0.62 (0.52-1.04) mg/dL Estimated GFR > 60.0 ML/MIN Glucose 102 (74-106) mg/dL Calcium 9.0 (8.4-10.2) mg/dL Troponin I (0.000-0.034) ng/mL Urine Color (YELLOW) Urine Appearance (CLEAR) Urine pH (5-6) Ur Specific Ivins (1.005-1.025) Urine Protein (Negative) Urine Ketones (NEGATIVE) Urine Blood (0-5) Blake/ul Urine Nitrite (NEGATIVE) Urine Bilirubin (NEGATIVE) Urine Urobilinogen (0-1) mg/dL Ur Leukocyte Esterase (NEGATIVE) Urine WBC (Auto) (0-5) /HPF Urine RBC (Auto) (0-2) /HPF U Epithel Cells (Auto) (FEW) /HPF Urine Bacteria (Auto) (NEGATIVE) /HPF Urine Mucus (Auto) (NEGATIVE) /HPF Urine Culture Reflexed (NO) Urine Glucose (NEGATIVE) mg/dL - Progress Progress: improved Progress Note: 08/17/18 23:10 ADMINISTERED IV NORMAL SALINE 50ML/HR, NORFLEX 60MG IM, ZOFRAN 4MG, TORADOL 30MG, FENTANYL 50MCG IV Counseled pt/family regarding: lab results, diagnosis, rad results - Departure Time of Disposition: 23:20 Departure Disposition: Home Clinical Impression: MUSCULOSKELETAL PAIN CERVICAL/LUMBAR, ANXIETY Condition: Stable Critical Care Time: No Referrals: ANDREA CHRISTY [Primary Care Provider] - Additional Instructions: DISCUSSED CEREBREX AND BEGIN ULTRAM 50MG EVERY 6 HOURS FOR PAIN NEEDED. NORFLEX 100MG TWICE DAILY FOR MUSCLE SPASM. CONSULT YOUR PRIMARY CARE PROVIDER FOR EVALUATION, TREATMENT, PHYSICAL THERAPY AND REFERRAL TO PAIN CLINIC. Prescriptions: Tramadol HCl 50 mg [Ultram 50 mg] 50 mg PO Q6HPRN PRN #16 tablet PRN Reason: Pain Orphenadrine Citrate 100 mg [Norflex 100 MG Tablet] 100 mg PO BID #14 tab
[2018-08-17 21:29] LABS: BASOPHIL % 0.3 % (0.0-0.4); Basophil (Absolute #) 0.03 (0-0.4); Eosinophil % 1.6 % (0.00-5.0); Eosinophil (Absolute #) 0.15 (0-0.5); Granulocyte Absolute (ANC) 5.95 (1.4-6.9); Granulocytes % 63.8 % (36.0-66.0); Hematocrit 33.3 % (35-47); Lymphocytes % 24.6 % (24.0-44.0); Mean Cell Volume 92.2 fl (78-100); Mean Platelet Volume 9.1 fl (6-9.5); Monocyte (Absolute #) 0.91 (0.0-1.3); Monocytes % 9.7 % (0.0-12.0); Platelet Count 270 K/mm3 (150-450); Red Blood Count 3.61 M/mm3 (4.1-5.4); Red Cell Distribution Width 13.1 % (11.5-14.0); White Blood Count 9.3 K/mm3 (4.0-10.5)
[2018-08-17 21:30] LABS: Mean Corpuscular Hemoglobin 30.4 pg (26-32)
[2018-08-17 21:39] LABS: Appearance CLEAR (CLEAR); Bacteria RARE /HPF (NEGATIVE); Bilirubin NEGATIVE (NEGATIVE); Blood NEGATIVE Ery/ul (0-5); Epithelial Cells RARE /HPF (FEW); Glucose NEGATIVE (NEGATIVE); Ketones NEGATIVE (NEGATIVE); Leukocyte Esterase NEGATIVE (NEGATIVE); Mucus SLIGHT /HPF (NEGATIVE); Nitrite NEGATIVE (NEGATIVE); Protein,Urine Dip NEGATIVE (Negative); RBC 0-2 /HPF (0-2); Urobilinogen 4 mg/dL (0-1); WBC 0-2 /HPF (0-5)
[2018-08-17 21:40] LABS: ANION GAP 11.8 MEQ/L (5-15); BLOOD UREA NITROGEN 18 mg/dL (7-17); CHLORIDE 103 mmol/L (98-107); Carbon Dioxide 28 mmol/L (22-30); Creatinine 1 0.62 mg/dL (0.52-1.04); Glucose 102 mg/dL (74-106); Potassium 4.3 mmol/L (3.5-5.1); SODIUM 138 mmol/L (137-145)
[2018-08-17] MEDS ORDERED: Zofran 4 MG/2 ML VIAL IV ONE (22:05)
[2018-08-17] MEDS ORDERED: SUBLIMAZE 100 MCG/2 ML IV ONE (22:06)
[2018-08-17] MEDS ORDERED: SUBLIMAZE 100 MCG/2 ML ONE (22:17)
[2018-08-17] MEDS ORDERED: Zofran 4 MG/2 ML VIAL ONE (22:17)
--- NOTE | 2018-08-17 22:30 | XRAY ---
Indication: Chest pain. Comparison: August 02, 2018. Portable chest again demonstrates normal heart, lungs, and bony thorax.
[2018-08-17 23:08] VITALS: BP 114/72; PULSE 65; O2SAT 98
== END 2018-08-17 23:27 | disposition home or self-care (01) ==
LOC: ED 20:36
DX: M54.2 Cervicalgia (principal); M54.5 Low back pain; F41.9 Anxiety disorder, unspecified; M79.7 Fibromyalgia; R10.9 Unspecified abdominal pain; F32.9 Major depressive disorder, single episode, unspecified; Z79.899 Other long term (current) drug therapy; J45.909 Unspecified asthma, uncomplicated; M79.89 Other specified soft tissue disorders
CPT/HCPCS: 36000; 36415; 71045; 80048; 81001; 84484; 85025; 85379; 93005; 93041; 96360; 96361; 96372; 96374; 96375; 99284; J1885; J2360; J2405; J3010

== ENCOUNTER 2018-08-29 11:43 | Emergency (ER) | payer OTHER ==
[2018-08-29] MEDS ORDERED: Sodium Chloride 0.9% 1000 ML 1,000 ML IV STA (12:02)
[2018-08-29] MEDS ORDERED: Zofran 4 MG/2 ML VIAL IV ONE (12:02)
[2018-08-29 12:06] VITALS: PULSE 82; O2SAT 98
[2018-08-29] MEDS ORDERED: Zofran 4 MG/2 ML VIAL ONE (12:09)
[2018-08-29] MEDS ORDERED: Sodium Chloride 0.9% 1000 ML 1,000 ML ONE ×2 (12:09→12:52)
--- NOTE | 2018-08-29 12:09 | ERPHSYRPT ---
- History of Present Illness Time Seen by Provider: 08/29/18 11:52 Historian: patient Exam Limitations: no limitations Physician History: abdominal pain 2 years ; intermitant; contolled with reflux meds until 2 weeks ago; no fever; yellow stool; worse after eating chilli; RUQ>EPI pain; referred to [facility]; no travel; no exposures; Nauseated no EMesis Timing/Duration: day(s) (3-4 days increased pain), week(s) (2 onset), intermittent, worse Activities at Onset: none Quality: burning (geralized), sharpness (RUQ) Abdominal Pain Onset Location: RUQ Pain Radiation: LLQ, scapula, shoulder (top) Severity of Pain-Max: severe Severity of Pain-Current: moderate Modifying Factors: Improves With: eating (exacerbates), palpation (exacerbates) Associated Symptoms: heartburn, nausea Previous symptoms: same symptoms as today Allergies/Adverse Reactions: haloperidol [From Haldol] Allergy (Mild, Verified 08/17/18 21:07) "CAN'T MOVE AT ALL FOR 3 DAYS" Home Medications: Alprazolam 1 mg [Xanax 1 mg] 1 mg PO TIDPRN PRN 11/07/15 [History] Ergocalciferol (Vitamin D2) [Vitamin D] 50,000 unit PO WEEKLY 07/03/16 [History] Celecoxib [Celebrex] 200 mg PO DAILY 09/02/16 [History] Albuterol Common Canister [Proventil Common Canister] 90 mcg IH Q4HPRN PRN 06/23/18 [History] PANTOPRAZOLE 40 mg Tablet [Protonix 40MG Tablet] 40 mg PO QAM 06/23/18 [ History] Hx Tetanus, Diphtheria Vaccination/Date Given: Yes Hx Influenza Vaccination/Date Given: No Hx Pneumococcal Vaccination/Date Given: No - Review of Systems Constitutional: No Symptoms Eyes: No Symptoms Ears, Nose, & Throat: No Symptoms Respiratory: No Cough, No Dyspnea, No Wheezing Cardiac: No Chest Pain, No Palpitations, No Syncope Abdominal/Gastrointestinal: Abdominal Pain, Nausea, No Vomiting, No Diarrhea, No Constipation, No Melena Genitourinary Symptoms: No Symptoms Musculoskeletal: No Symptoms Skin: No Symptoms Neurological: No Symptoms Psychological: No Symptoms Endocrine: No Symptoms Hematologic/Lymphatic: No Symptoms Immunological/Allergic: No Symptoms - Past Medical History Pertinent Past Medical History: Yes Neurological History: Migraines ENT History: No Pertinent History Cardiac History: No Pertinent History Respiratory History: Asthma Endocrine Medical History: Hypoglycemia Musculoskeletal History: Fibromyalgia GI Medical History: GERD History: No Pertinent History Psycho-Social History: Anxiety, Depression Female Reproductive Disorders: Fibroids Other Medical History: FIBROMYALGIA, ANXIETY DISORDER. metabolic X - Past Surgical History Past Surgical History: Yes Neuro Surgical History: No Pertinent History Cardiac: No Pertinent History Respiratory: No Pertinent History Gastrointestinal: No Pertinent History Genitourinary: No Pertinent History Musculoskeletal: No Pertinent History Female Surgical History: Hysterectomy, Section Other Surgical History: tonsillectomy - leep - d and c - Social History Smoking Status: Former smoker How long have you smoked: 4 years Exposure to second hand smoke: Yes Alcohol Use: None Drug Use: none Patient Lives Alone: No Significant Family History: hypertension - Female History Hx Now: No - Nursing Vital Signs Nursing Vital Signs: Initial Vital Signs Pulse Rate 82 08/29/18 11:55 Respiratory Rate 18 08/29/18 11:55 Blood Pressure 153/110 08/29/18 11:55 O2 Sat by Pulse Oximetry 98 08/29/18 11:55 Pain Scale Pain Intensity 7 - Physical Exam General Appearance: moderate distress, alert, obese Eye Exam: PERRL/EOMI, eyes nml inspection, No photophobia Ears, Nose, Throat Exam: normal ENT inspection, TMs normal, pharynx normal, moist mucous membranes Neck Exam: normal inspection, non-tender, supple, full range of motion, No meningismus, No JVD, No lymphadenopathy Respiratory Exam: normal breath sounds, lungs clear, airway intact, No chest tenderness, No respiratory distress, No crackles/rales, No rhonchi, No wheezing , No stridor Cardiovascular Exam: regular rate/rhythm, normal heart sounds, normal peripheral pulses, capillary refill <2 sec, No murmur, No edema Gastrointestinal/Abdomen Exam: soft, normal bowel sounds, tenderness (RUQ> Epig) , guarding (RUQ only), No distention, No pulsatile mass, No rebound, No organomegaly Pelvic Exam: deferred Rectal Exam: deferred Back Exam: normal inspection, normal range of motion, No CVA tenderness, No vertebral tenderness Extremity Exam: normal inspection, normal range of motion, No grisel's sign, No pedal edema Neurologic Exam: alert, oriented x 3, cooperative, windows admin II-XII nml as tested, normal mood/affect, nml station & gait Skin Exam: normal color, warm, dry, No rash - Course Nursing assessment & vital signs reviewed: Yes - CT Exams Abdomen/Pelvis CT Interpretation: Negative, Tele-radiologist Report, Other (diverticulosis only ) - Radiology Ultrasound Exam Gallbladder Ultrasound: tele radiology report, negative Ordered Tests: Active Orders 24 hr Category Date Time Status IV Insertion STAT Care 08/29/18 12:02 Active NPO (ED) STAT Care 08/29/18 12:02 Active Re-Check Vital Signs STAT Care 08/29/18 12:02 Active ABDOMEN AND PELVIS W/0 CONTRAS [CT] Stat Exams 08/29/18 12:41 Taken GALLBLADDER [US] Stat Exams 08/29/18 12:02 Completed AMYLASE Stat Lab 08/29/18 12:20 Completed CBC W DIFF Stat Lab 08/29/18 12:20 Completed CMP Stat Lab 08/29/18 12:20 Completed LIPASE Stat Lab 08/29/18 12:20 Completed Medication Summary Discontinued Medications Generic Name Dose Route Start Last Admin Trade Name Freq PRN Reason Stop Dose Admin Sodium Chloride 1,000 mls @ 999 mls/hr 08/29/18 12:02 08/29/18 13:47 Sodium Chloride 0.9% 1000 Ml IV 08/29/18 13:02 Infused .Q1H1M STA Infusion Sodium Chloride Confirm 08/29/18 12:09 Sodium Chloride 0.9% 1000 Ml Administered 08/29/18 12:10 Dose 1,000 mls @ ud .ROUTE .STK-MED ONE Sodium Chloride Confirm 08/29/18 12:52 Sodium Chloride 0.9% 1000 Ml Administered 08/29/18 12:53 Dose 1,000 mls @ ud .ROUTE .STK-MED ONE Lidocaine HCl 15 ml 08/29/18 12:46 08/29/18 13:01 Xylocaine Hcl Viscous * MM 08/29/18 12:47 15 ml STAT ONE Administration Lidocaine HCl Confirm 08/29/18 12:52 Xylocaine Hcl Viscous * Administered 08/29/18 12:53 Dose 15 ml .ROUTE .STK-MED ONE Ondansetron HCl 4 mg 08/29/18 12:02 08/29/18 12:12 Zofran 4 Mg/2 Ml Vial IV 08/29/18 12:03 4 mg STAT ONE Administration Ondansetron HCl Confirm 08/29/18 12:09 Zofran 4 Mg/2 Ml Vial Administered 08/29/18 12:10 Dose 4 mg .ROUTE .STK-MED ONE Sucralfate 1,000 mg 08/29/18 12:47 08/29/18 13:01 Carafate Suspension 1000 Mg/10 Ml PO 08/29/18 12:48 1,000 mg STAT ONE Administration Lab/Rad Data: Laboratory Result Diagrams 08/29/18 12:20 08/29/18 12:20 Laboratory Results 08/29/18 08/29/18 Range/Units 12:20 12:20 WBC 7.2 (4.0-10.5) K/mm3 RBC 4.25 (4.1-5.4) M/mm3 Hgb 12.8 (12.0-16.0) gm/dl Hct 39.1 (35-47) % MCV 92.0 (78-100) fl MCH 30.1 (26-32) pg MCHC 32.7 (32-36) g/dl RDW 13.1 (11.5-14.0) % Plt Count 299 (150-450) K/mm3 MPV 9.1 (6-9.5) fl Gran % 65.4 (36.0-66.0) % Eos # (Auto) 0.05 (0-0.5) Absolute Lymphs (auto) 1.83 (1.0-4.6) Absolute Monos (auto) 0.60 (0.0-1.3) Lymphocytes % 25.3 (24.0-44.0) % Monocytes % 8.3 (0.0-12.0) % Eosinophils % 0.7 (0.00-5.0) % Basophils % 0.3 (0.0-0.4) % Absolute Granulocytes 4.73 (1.4-6.9) Basophils # 0.02 (0-0.4) Sodium 137 (137-145) mmol/L Potassium 4.6 (3.5-5.1) mmol/L Chloride 99 (98-107) mmol/L Carbon Dioxide 28 (22-30) mmol/L Anion Gap 15.0 (5-15) MEQ/L BUN 15 (7-17) mg/dL Creatinine 0.76 (0.52-1.04) mg/dL Estimated GFR > 60.0 ML/MIN Glucose 121 H (74-106) mg/dL Calcium 9.4 (8.4-10.2) mg/dL Total Bilirubin 0.70 (0.2-1.3) mg/dL AST 17 (14-36) U/L ALT 20 (0-35) U/L Alkaline Phosphatase 76 (38-126) U/L Serum Total Protein 7.7 (6.3-8.2) g/dL Albumin 4.7 (3.5-5.0) g/dL Amylase 65 (30-110) U/L Lipase 80 (23-300) U/L reviewed - Progress Progress: improved (after meds), pain not gone completely, re-examined (after meds) Progress Note: 08/29/18 12:11 IV started, meds given; labs and US pending; will monitor and recheck 08/29/18 12:43 GB US negative; CBC ok; CMP ok; Will get CT of Abd for pain and Nausea 08/29/18 13:38 patient RT fromCT ; results pending; some relief with GI cocktail of Viscous xylocaine and carafate suspension 08/29/18 14:28 patient sleeping when rechecked; feeling better; results shared; impression is GB disease and reflux; instructions given Counseled pt/family regarding: lab results, diagnosis, need for follow-up, rad results - Departure Time of Disposition: 14:29 Departure Disposition: Home Clinical Impression: Abdominal bloating, Abdominal pain, suspect poorly functioning GB, Reflux esophagitis Condition: Stable Critical Care Time: No Referrals: ANDREA CHRISTY [Primary Care Provider] - Instructions: Acute Abdomen (Belly Pain), Adult (DC) Additional Instructions: bland diet; clear fluids; CAll LMD for follow up and possible Hyda scan Follow-up with family doctor as directed. Call for appointment. Return if any problems. If you smoke please stop. Call or follow up with your family doctor for assistance if you need it to stop. Please wear your seatbelt when driving. Have a nice day. Thank you for allowing us to participate in your care today. :o) Dr Wil Lind Prescriptions: Sucralfate 1000 mg/10 ml [Carafate SUSPENSION 1000 MG/10 ML] 1,000 mg PO ACHS #240 ml
[2018-08-29 12:25] LABS: BASOPHIL % 0.3 % (0.0-0.4); Basophil (Absolute #) 0.02 (0-0.4); Eosinophil % 0.7 % (0.00-5.0); Eosinophil (Absolute #) 0.05 (0-0.5); Granulocyte Absolute (ANC) 4.73 (1.4-6.9); Granulocytes % 65.4 % (36.0-66.0); Hematocrit 39.1 % (35-47); Hemoglobin 12.8 gm/dl (12.0-16.0); Lymphocyte (Absolute #) 1.83 (1.0-4.6); Lymphocytes % 25.3 % (24.0-44.0); Mean Corpuscular Hemoglobin 30.1 pg (26-32); Mean Corpuscular Hgb Concent. 32.7 g/dl (32-36); Mean Platelet Volume 9.1 fl (6-9.5); Monocytes % 8.3 % (0.0-12.0); Platelet Count 299 K/mm3 (150-450); Red Blood Count 4.25 M/mm3 (4.1-5.4); Red Cell Distribution Width 13.1 % (11.5-14.0); White Blood Count 7.2 K/mm3 (4.0-10.5)
[2018-08-29 12:36] LABS: ALBUMIN 4.7 g/dL (3.5-5.0); ALKALINE PHOSPHATASE 76 U/L (38-126); AMYLASE 65 U/L (30-110); BLOOD UREA NITROGEN 15 mg/dL (7-17); CHLORIDE 99 mmol/L (98-107); Calcium 9.4 mg/dL (8.4-10.2); Carbon Dioxide 28 mmol/L (22-30); Creatinine 1 0.76 mg/dL (0.52-1.04); Glucose 121 mg/dL (74-106); LIPASE 80 U/L (23-300); Potassium 4.6 mmol/L (3.5-5.1); SGOT/AST 17 U/L (14-36); SGPT/ALT 20 U/L (0-35); SODIUM 137 mmol/L (137-145); Total Protein 7.7 g/dL (6.3-8.2)
[2018-08-29] MEDS ORDERED: XYLOCAINE HCl Viscous MM ONE (12:46)
[2018-08-29] MEDS ORDERED: Carafate SUSPENSION 1000 MG/10 ML PO ONE (12:47)
[2018-08-29] MEDS ORDERED: XYLOCAINE HCl Viscous ONE (12:52)
--- NOTE | 2018-08-29 12:59 | XRAY ---
Indication: Right upper quadrant pain. Two-dimensional gallbladder sonogram performed. Comparison: June 28, 2013. Gallbladder partially contracted again without gallstones, wall thickening, or pericholecystic fluid. Common bile duct measures 7.2 mm. No intrahepatic biliary distention. Remaining visualized portions of the liver and pancreas sonographically unremarkable. Right kidney again measures 13.9 cm in length without suspicious renal mass, hydronephrosis, or perinephric fluid. No ascites. Impression: Again negative gallbladder sonogram.
[2018-08-29 14:59] VITALS: BP 148/90
--- NOTE | 2018-08-31 10:07 | XRAY ---
Indication: Abdomen pain. Nausea and gas. Multiple contiguous axial images obtained through the abdomen and pelvis without contrast. Comparison: November 03, 2015. Lung bases demonstrates new 7 mm indeterminant noncalcified nodule in the inferior right middle lobe. No infiltrate or effusion. Heart is not enlarged. Noncontrasted stomach and bowel loops appear nonobstructed. Normal appendix. Again minimal scattered colonic diverticulosis without diverticulitis. There has been interval hysterectomy. No free fluid/air. Remaining liver, gallbladder, pancreas, spleen, adrenal glands, kidneys, ureters, bladder, and aorta appear unremarkable for noncontrast exam. Osseous structures intact. No ventral or inguinal hernias. Impression: 1. Again minimal colonic diverticulosis without diverticulitis. 2. New indeterminant right middle lobe noncalcified micronodule. 2. Remaining CT abdomen/pelvis without contrast exam is negative. CT DI 23.64
== END 2018-08-29 14:59 | disposition home or self-care (01) ==
LOC: ED 11:43
DX: R14.0 Abdominal distension (gaseous) (principal); K21.9 Gastro-esophageal reflux disease without esophagitis; Z79.899 Other long term (current) drug therapy; F41.9 Anxiety disorder, unspecified; M79.7 Fibromyalgia
CPT/HCPCS: 36000; 36415; 74176; 76705; 80053; 82150; 83690; 85025; 96360; 96374; 99284; J2405; A9270-GY

== ENCOUNTER 2018-11-01 09:25 | Emergency (ER) | payer OTHER ==
--- NOTE | 2018-11-01 09:28 | ERPHSYRPT ---
- History of Present Illness Time Seen by Provider: 11/01/18 09:27 Historian: patient Exam Limitations: no limitations Physician History: 43 y/o white female presents with sudden onset of nonradiating left ant cp. began at 0700. pt under a lot of stress. took a xanax. did not help. took one baby asa. pain persisted. pt has had a few cp workups in last few months that have been negative. pt has h/o anxiety, fibromyalgia and recurrent cp. denies soa and denies abd pain Timing/Duration: today, worse Activities at Onset: none Quality: pressure, sharpness Location: other (left ant) Chest Pain Radiation: no radiation Severity of Pain-Max: moderate Severity of Pain-Current: moderate Modifying Factors: Improves With: nothing Associated Symptoms: hurts to breathe, dizziness Prior Chest Pain/Cardiac Workup: recently seen/treated Nitro Today/Relief: no nitro taken today Aspirin Treatment Today: 81 mg x 1, provided at home Allergies/Adverse Reactions: haloperidol [From Haldol] Allergy (Mild, Verified 11/01/18 09:45) "CAN'T MOVE AT ALL FOR 3 DAYS" Home Medications: Alprazolam 1 mg [Xanax 1 mg] 1 mg PO TIDPRN PRN 11/07/15 [History] Ergocalciferol (Vitamin D2) [Vitamin D] 50,000 unit PO WEEKLY 07/03/16 [History] PANTOPRAZOLE 40 mg Tablet [Protonix 40MG Tablet] 40 mg PO QAM 06/23/18 [ History] Hx Tetanus, Diphtheria Vaccination/Date Given: Yes Hx Influenza Vaccination/Date Given: No Hx Pneumococcal Vaccination/Date Given: No - Review of Systems Constitutional: No Symptoms Eyes: No Symptoms Ears, Nose, & Throat: No Symptoms Respiratory: No Symptoms Cardiac: Chest Pain Abdominal/Gastrointestinal: No Symptoms Genitourinary Symptoms: No Symptoms Musculoskeletal: No Symptoms Skin: No Symptoms Neurological: No Symptoms Psychological: No Symptoms Endocrine: No Symptoms Hematologic/Lymphatic: No Symptoms Immunological/Allergic: No Symptoms All Other Systems: Reviewed and Negative - Past Medical History Pertinent Past Medical History: Yes Neurological History: Migraines ENT History: No Pertinent History Cardiac History: No Pertinent History Respiratory History: Asthma Endocrine Medical History: Hypoglycemia Musculoskeletal History: Fibromyalgia GI Medical History: GERD History: No Pertinent History Psycho-Social History: Anxiety, Depression Female Reproductive Disorders: Fibroids Other Medical History: FIBROMYALGIA, ANXIETY DISORDER. metabolic X - Past Surgical History Past Surgical History: Yes Neuro Surgical History: No Pertinent History Cardiac: No Pertinent History Respiratory: No Pertinent History Gastrointestinal: No Pertinent History Genitourinary: No Pertinent History Musculoskeletal: No Pertinent History Female Surgical History: Hysterectomy, Section Other Surgical History: tonsillectomy - leep - d and c - Social History Smoking Status: Former smoker How long have you smoked: 4 years Exposure to second hand smoke: Yes Alcohol Use: None Drug Use: none Patient Lives Alone: No Significant Family History: hypertension - Nursing Vital Signs Nursing Vital Signs: Initial Vital Signs Pulse Rate 66 11/01/18 09:26 Pain Scale Pain Intensity 8 - Physical Exam General Appearance: mild distress, alert, anxiety Eye Exam: PERRL/EOMI, eyes nml inspection Ears, Nose, Throat Exam: normal ENT inspection, moist mucous membranes Neck Exam: normal inspection, non-tender, supple, full range of motion Respiratory Exam: normal breath sounds, chest tenderness, lungs clear, airway intact, No respiratory distress Cardiovascular Exam: regular rate/rhythm, normal heart sounds, normal peripheral pulses Gastrointestinal/Abdomen Exam: soft, normal bowel sounds, No tenderness Pelvic Exam: not done Rectal Exam: not done Back Exam: normal inspection, normal range of motion, No CVA tenderness, No vertebral tenderness Extremity Exam: normal inspection, normal range of motion, pelvis stable Neurologic Exam: alert, oriented x 3, cooperative, 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 nml as tested Skin Exam: normal color, warm, dry Lymphatic Exam: No adenopathy SpO2 Interpretation: normal O2 Delivery: Room Air - Course Nursing assessment & vital signs reviewed: Yes EKG Interpreted by Me: RATE (72), Sinus Rhythm, NORMAL AXIS, NORMAL INTERVALS, NORMAL QRS, NORMAL ST-T, Other (no change from comparison ekg 08/17/18) Ordered Tests: Active Orders 24 hr Category Date Time Status Pulse Oximetry (ED) STAT Care 11/01/18 09:32 Active CHEST 1 VIEW (PORTABLE) Stat Exams 11/01/18 09:31 Completed CBC W DIFF Stat Lab 11/01/18 09:45 Completed CMP Stat Lab 11/01/18 09:45 Completed D-DIMER QUANTITATION Stat Lab 11/01/18 09:45 Completed NT PRO BNP Stat Lab 11/01/18 09:45 Completed TROPONIN Q3H Lab 11/01/18 09:45 Completed TROPONIN Q3H Lab 11/01/18 12:45 Ordered TROPONIN Q3H Lab 11/01/18 15:45 Ordered TROPONIN Q3H Lab 11/01/18 18:45 Ordered TROPONIN Q3H Lab 11/01/18 21:45 Ordered Medication Summary Discontinued Medications Generic Name Dose Route Start Last Admin Trade Name Freq PRN Reason Stop Dose Admin Aspirin 324 mg 11/01/18 09:32 11/01/18 10:30 Baby Aspirin 81 Mg Chew PO 11/01/18 09:33 324 mg STAT ONE Administration Aspirin Confirm 11/01/18 10:27 Baby Aspirin 81 Mg Chew Administered 11/01/18 10:28 Dose 324 mg .ROUTE .STK-MED ONE Ondansetron HCl 4 mg 11/01/18 09:32 11/01/18 10:30 Zofran 4 Mg/2 Ml Vial IV 11/01/18 09:33 4 mg STAT ONE Administration Ondansetron HCl Confirm 11/01/18 10:27 Zofran 4 Mg/2 Ml Vial Administered 11/01/18 10:28 Dose 4 mg .ROUTE .STK-MED ONE Lab/Rad Data: Laboratory Result Diagrams 11/01/18 09:45 11/01/18 09:45 Laboratory Results 11/01/18 11/01/18 11/01/18 Range/Units 09:45 09:45 09:45 WBC (4.0-10.5) K/mm3 RBC (4.1-5.4) M/mm3 Hgb (12.0-16.0) gm/dl Hct (35-47) % MCV (78-100) fl MCH (26-32) pg MCHC (32-36) g/dl RDW (11.5-14.0) % Plt Count (150-450) K/mm3 MPV (6-9.5) fl Gran % (36.0-66.0) % Eos # (Auto) (0-0.5) Absolute Lymphs (auto) (1.0-4.6) Absolute Monos (auto) (0.0-1.3) Lymphocytes % (24.0-44.0) % Monocytes % (0.0-12.0) % Eosinophils % (0.00-5.0) % Basophils % (0.0-0.4) % Absolute Granulocytes (1.4-6.9) Basophils # (0-0.4) D-Dimer < 215 L (215-500) ng/mL Sodium 139 (137-145) mmol/L Potassium 4.1 (3.5-5.1) mmol/L Chloride 101 (98-107) mmol/L Carbon Dioxide 27 (22-30) mmol/L Anion Gap 15.2 H (5-15) MEQ/L BUN 14 (7-17) mg/dL Creatinine 0.73 (0.52-1.04) mg/dL Estimated GFR > 60.0 ML/MIN Glucose 81 (74-106) mg/dL Calcium 9.5 (8.4-10.2) mg/dL Total Bilirubin 0.50 (0.2-1.3) mg/dL AST 18 (14-36) U/L ALT 17 (0-35) U/L Alkaline Phosphatase 77 (38-126) U/L Troponin I < 0.012 (0.000-0.034) ng/mL NT-Pro-B Natriuret Pep 52.1 (0-450) pg/mL Serum Total Protein 7.3 (6.3-8.2) g/dL Albumin 4.2 (3.5-5.0) g/dL 11/01/18 Range/Units 09:45 WBC 8.1 (4.0-10.5) K/mm3 RBC 4.18 (4.1-5.4) M/mm3 Hgb 12.7 (12.0-16.0) gm/dl Hct 39.0 (35-47) % MCV 93.3 (78-100) fl MCH 30.4 (26-32) pg MCHC 32.6 (32-36) g/dl RDW 13.4 (11.5-14.0) % Plt Count 260 (150-450) K/mm3 MPV 9.2 (6-9.5) fl Gran % 69.8 H (36.0-66.0) % Eos # (Auto) 0.07 (0-0.5) Absolute Lymphs (auto) 1.53 (1.0-4.6) Absolute Monos (auto) 0.80 (0.0-1.3) Lymphocytes % 19.0 L (24.0-44.0) % Monocytes % 9.9 (0.0-12.0) % Eosinophils % 0.9 (0.00-5.0) % Basophils % 0.4 (0.0-0.4) % Absolute Granulocytes 5.64 (1.4-6.9) Basophils # 0.03 (0-0.4) D-Dimer (215-500) ng/mL Sodium (137-145) mmol/L Potassium (3.5-5.1) mmol/L Chloride (98-107) mmol/L Carbon Dioxide (22-30) mmol/L Anion Gap (5-15) MEQ/L BUN (7-17) mg/dL Creatinine (0.52-1.04) mg/dL Estimated GFR ML/MIN Glucose (74-106) mg/dL Calcium (8.4-10.2) mg/dL Total Bilirubin (0.2-1.3) mg/dL AST (14-36) U/L ALT (0-35) U/L Alkaline Phosphatase (38-126) U/L Troponin I (0.000-0.034) ng/mL NT-Pro-B Natriuret Pep (0-450) pg/mL Serum Total Protein (6.3-8.2) g/dL Albumin (3.5-5.0) g/dL - Progress Progress: improved Air Movement: good Progress Note: 11/01/18 10:56 cxr- no acute process. Antibiotics given: No Counseled pt/family regarding: lab results, diagnosis, need for follow-up, rad results - Departure Departure Disposition: Home Clinical Impression: Chest pain, Anxiety Condition: Stable Critical Care Time: No Referrals: ANDREA CHRISTY [Primary Care Provider] - Additional Instructions: Take your medications as prescribed. follow up with primary doctor for further management
[2018-11-01] MEDS ORDERED: Zofran 4 MG/2 ML VIAL IV ONE (09:32)
[2018-11-01] MEDS ORDERED: BABY ASPIRIN 81 MG CHEW PO ONE (09:32)
[2018-11-01 09:43] VITALS: O2SAT 99
[2018-11-01 09:55] LABS: BASOPHIL % 0.4 % (0.0-0.4); Basophil (Absolute #) 0.03 (0-0.4); Eosinophil % 0.9 % (0.00-5.0); Eosinophil (Absolute #) 0.07 (0-0.5); Granulocyte Absolute (ANC) 5.64 (1.4-6.9); Granulocytes % 69.8 % (36.0-66.0); Hemoglobin 12.7 gm/dl (12.0-16.0); Lymphocyte (Absolute #) 1.53 (1.0-4.6); Mean Cell Volume 93.3 fl (78-100); Mean Corpuscular Hemoglobin 30.4 pg (26-32); Mean Corpuscular Hgb Concent. 32.6 g/dl (32-36); Mean Platelet Volume 9.2 fl (6-9.5); Monocytes % 9.9 % (0.0-12.0); Platelet Count 260 K/mm3 (150-450); Red Blood Count 4.18 M/mm3 (4.1-5.4); Red Cell Distribution Width 13.4 % (11.5-14.0); White Blood Count 8.1 K/mm3 (4.0-10.5)
--- NOTE | 2018-11-01 09:59 | XRAY ---
Indication: Chest tightness. Comparison: August 17, 2018. Portable chest continues to demonstrate normal heart, lungs, and bony thorax.
[2018-11-01 10:17] LABS: ALBUMIN 4.2 g/dL (3.5-5.0); ALKALINE PHOSPHATASE 77 U/L (38-126); ANION GAP 15.2 MEQ/L (5-15); BLOOD UREA NITROGEN 14 mg/dL (7-17); CHLORIDE 101 mmol/L (98-107); Calcium 9.5 mg/dL (8.4-10.2); Carbon Dioxide 27 mmol/L (22-30); Creatinine 1 0.73 mg/dL (0.52-1.04); Glucose 81 mg/dL (74-106); NT PRO BNP 52.1 pg/mL (0-450); Potassium 4.1 mmol/L (3.5-5.1); SGOT/AST 18 U/L (14-36); SGPT/ALT 17 U/L (0-35); SODIUM 139 mmol/L (137-145); Total Protein 7.3 g/dL (6.3-8.2)
[2018-11-01] MEDS ORDERED: Zofran 4 MG/2 ML VIAL ONE (10:27)
[2018-11-01] MEDS ORDERED: BABY ASPIRIN 81 MG CHEW ONE (10:27)
[2018-11-01 11:32] VITALS: BP 121/67; PULSE 67
== END 2018-11-01 11:24 | disposition home or self-care (01) ==
LOC: ED 09:25
DX: R07.9 Chest pain, unspecified (principal); F41.9 Anxiety disorder, unspecified
CPT/HCPCS: 36000; 36415; 71045; 80053; 83880; 84484; 85025; 85379; 96374; 99284; J2405; A9270-GY

== ENCOUNTER 2018-12-03 13:02 | Emergency (ER) | payer OTHER ==
[2018-12-03 13:26] VITALS: O2SAT 96
[2018-12-03] MEDS ORDERED: Zofran 4 MG/2 ML VIAL IV ONE (13:48)
[2018-12-03] MEDS ORDERED: ANTIVERT 25 MG PO ONE (13:49)
[2018-12-03] MEDS ORDERED: Sodium Chloride 0.9% 1000 ML 1,000 ML IV SCH (14:00)
[2018-12-03] MEDS ORDERED: Zofran 4 MG/2 ML VIAL ONE (14:10)
[2018-12-03] MEDS ORDERED: ANTIVERT 25 MG ONE (14:11)
[2018-12-03] MEDS ORDERED: Sodium Chloride 0.9% 1000 ML 1,000 ML ONE (14:11)
[2018-12-03 14:17] LABS: BASOPHIL % 0.2 % (0.0-0.4); Basophil (Absolute #) 0.02 (0-0.4); Eosinophil % 0.3 % (0.00-5.0); Eosinophil (Absolute #) 0.03 (0-0.5); Granulocytes % 74.6 % (36.0-66.0); Hematocrit 39.9 % (35-47); Hemoglobin 13.1 gm/dl (12.0-16.0); Lymphocyte (Absolute #) 1.56 (1.0-4.6); Lymphocytes % 16.6 % (24.0-44.0); Mean Corpuscular Hemoglobin 30.5 pg (26-32); Mean Corpuscular Hgb Concent. 32.8 g/dl (32-36); Mean Platelet Volume 9.9 fl (6-9.5); Monocyte (Absolute #) 0.78 (0.0-1.3); Monocytes % 8.3 % (0.0-12.0); Platelet Count 271 K/mm3 (150-450); Red Blood Count 4.29 M/mm3 (4.1-5.4); Red Cell Distribution Width 13.6 % (11.5-14.0); White Blood Count 9.4 K/mm3 (4.0-10.5)
[2018-12-03 14:26] LABS: Appearance CLEAR (CLEAR); Bilirubin NEGATIVE (NEGATIVE); Blood NEGATIVE Ery/ul (0-5); Epithelial Cells RARE /HPF (FEW); Glucose NEGATIVE (NEGATIVE); Ketones NEGATIVE (NEGATIVE); Leukocyte Esterase NEGATIVE (NEGATIVE); Mucus SLIGHT /HPF (NEGATIVE); Nitrite NEGATIVE (NEGATIVE); Protein,Urine Dip NEGATIVE (Negative); Specific Gravity 1.006 (1.005-1.025); Urobilinogen NEGATIVE mg/dL (0-1)
[2018-12-03 14:34] LABS: ANION GAP 12.4 MEQ/L (5-15); BLOOD UREA NITROGEN 10 mg/dL (7-17); CHLORIDE 102 mmol/L (98-107); Calcium 9.2 mg/dL (8.4-10.2); Carbon Dioxide 27 mmol/L (22-30); Creatinine 1 0.65 mg/dL (0.52-1.04); Glucose 91 mg/dL (74-106); Potassium 4.5 mmol/L (3.5-5.1); SODIUM 138 mmol/L (137-145)
[2018-12-03 14:47] LABS: Amphetamine,Urine NEGATIVE (NEGATIVE); Barbiturate,Urine NEGATIVE (NEGATIVE); Benzodiazepine,Urine NEGATIVE (NEGATIVE); Cocaine,Urine NEGATIVE (NEGATIVE); Methadone,Urine NEGATIVE (NEGATIVE); Opiate,Urine NEGATIVE (NEGATIVE); PCP,Urine NEGATIVE (NEGATIVE); THC,Urine POSITIVE (NEGATIVE)
[2018-12-03 15:27] VITALS: BP 138/88; PULSE 89
--- NOTE | 2018-12-03 15:32 | ERPHSYRPT ---
- History of Present Illness Time Seen by Provider: 12/03/18 13:30 Source: patient Exam Limitations: clinical condition Patient Subjective Stated Complaint: pt co dizziness for last 2-3 days, but not now, she states she was unsteady yesterday at home, she states she is tried, and doesnt feel herself,she states it hard to explain Triage Nursing Assessment: pt alert, walked in on phone, gait is steady, she states she took a nerve pill prior to coming and states it did not help, skin w/ d/p. moves all ext well Physician History: PATIENT WITH A HISTORY OF HYPOGLYCEMIA, COMPLAINS OF INTERMITTENT DIZZINESS 2 DAYS AGO. HAS ASSOCIATED NAUSEA, DENIES DYSPNEA, CHEST PAIN, HEADACHE, BLURRED VISION, UNSTEADY GAIT. Timing/Duration: today Severity: mild Modifying Factors: Improves With: nothing Associated Symptoms: denies symptoms Allergies/Adverse Reactions: haloperidol [From Haldol] Allergy (Mild, Verified 12/03/18 13:11) "CAN'T MOVE AT ALL FOR 3 DAYS" Home Medications: Alprazolam 1 mg [Xanax 1 mg] 1 mg PO TIDPRN PRN 11/07/15 [History] Ergocalciferol (Vitamin D2) [Vitamin D] 50,000 unit PO WEEKLY 07/03/16 [History] PANTOPRAZOLE 40 mg Tablet [Protonix 40MG Tablet] 40 mg PO QAM 06/23/18 [ History] Hx Tetanus, Diphtheria Vaccination/Date Given: Yes Hx Influenza Vaccination/Date Given: No Hx Pneumococcal Vaccination/Date Given: No Immunizations Up to Date: Yes - Past Medical History Pertinent Past Medical History: Yes Neurological History: Migraines ENT History: No Pertinent History Cardiac History: No Pertinent History Respiratory History: Asthma Endocrine Medical History: Hypoglycemia Musculoskeletal History: Fibromyalgia GI Medical History: GERD History: No Pertinent History Psycho-Social History: Anxiety, Depression Female Reproductive Disorders: Fibroids Other Medical History: FIBROMYALGIA, ANXIETY DISORDER. metabolic X - Past Surgical History Past Surgical History: Yes Neuro Surgical History: No Pertinent History Cardiac: No Pertinent History Respiratory: No Pertinent History Gastrointestinal: No Pertinent History Genitourinary: No Pertinent History Musculoskeletal: No Pertinent History Female Surgical History: Hysterectomy, Section Other Surgical History: tonsillectomy - leep - d and c - Social History Smoking Status: Current every day smoker How long have you smoked: 4 years Exposure to second hand smoke: Yes Alcohol Use: None Drug Use: none Patient Lives Alone: No Significant Family History: hypertension - Female History Hx Last Menstrual Period: hyster Hx Now: No - Nursing Vital Signs Nursing Vital Signs: Initial Vital Signs Temperature 98.1 F 12/03/18 13:17 Pulse Rate 34 L 12/03/18 13:17 Respiratory Rate 16 12/03/18 13:17 Blood Pressure 134/85 12/03/18 13:17 O2 Sat by Pulse Oximetry 96 12/03/18 13:17 Pain Scale Pain Intensity 0 - Physical Exam General Appearance: no apparent distress, alert Eye Exam: PERRL/EOMI, eyes nml inspection Ears, Nose, Throat Exam: normal ENT inspection, TMs normal, pharynx normal, moist mucous membranes Neck Exam: normal inspection, non-tender, supple, full range of motion Respiratory Exam: normal breath sounds, lungs clear, No respiratory distress Cardiovascular Exam: regular rate/rhythm, normal heart sounds, normal peripheral pulses Gastrointestinal/Abdomen Exam: soft, normal bowel sounds, No tenderness, No mass Back Exam: normal inspection, normal range of motion, No CVA tenderness, No vertebral tenderness Extremity Exam: normal inspection, normal range of motion, pelvis stable Neurologic Exam: alert, oriented x 3, cooperative, normal mood/affect, nml cerebellar function, nml station & gait, sensation nml, No motor deficits Skin Exam: normal color, warm, dry, No rash Lymphatic Exam: No adenopathy SpO2 Interpretation: normal SpO2: 96 - Course EKG Interpreted by Me: RATE, Sinus Rhythm, NORMAL AXIS Ordered Tests: Active Orders 24 hr Category Date Time Status EKG-ER Only STAT Care 12/03/18 13:46 Active IV Insertion STAT Care 12/03/18 13:53 Active Orthostatic Vital Signs STAT Care 12/03/18 13:45 Active BMP Stat Lab 12/03/18 14:17 Completed CBC W DIFF Stat Lab 12/03/18 14:17 Completed MAG [MAGNESIUM] Stat Lab 12/03/18 14:17 Completed UA W/RFX UR CULTURE Stat Lab 12/03/18 13:54 Completed Urine Triage Profile Stat Lab 12/03/18 13:54 Completed Medication Summary Generic Name Dose Route Start Last Admin Trade Name Freq PRN Reason Stop Dose Admin Sodium Chloride 1,000 mls @ 200 mls/hr 12/03/18 14:00 12/03/18 14:13 Sodium Chloride 0.9% 1000 Ml IV 01/02/19 13:59 200 mls/hr .Q5H YANI Administration Discontinued Medications Generic Name Dose Route Start Last Admin Trade Name Freq PRN Reason Stop Dose Admin Meclizine HCl 25 mg 12/03/18 13:49 12/03/18 14:14 Antivert 25 Mg PO 12/03/18 13:50 25 mg STAT ONE Administration Meclizine HCl Confirm 12/03/18 14:11 Antivert 25 Mg Administered 12/03/18 14:12 Dose 25 mg .ROUTE .STK-MED ONE Ondansetron HCl 4 mg 12/03/18 13:48 12/03/18 14:14 Zofran 4 Mg/2 Ml Vial IV 12/03/18 13:49 4 mg STAT ONE Administration Ondansetron HCl Confirm 12/03/18 14:10 Zofran 4 Mg/2 Ml Vial Administered 12/03/18 14:11 Dose 4 mg .ROUTE .STK-MED ONE Lab/Rad Data: Laboratory Result Diagrams 12/03/18 14:17 12/03/18 14:17 Laboratory Results 12/03/18 12/03/18 12/03/18 Range/Units 14:17 14:17 14:17 WBC 9.4 (4.0-10.5) K/mm3 RBC 4.29 (4.1-5.4) M/mm3 Hgb 13.1 (12.0-16.0) gm/dl Hct 39.9 (35-47) % MCV 93.0 (78-100) fl MCH 30.5 (26-32) pg MCHC 32.8 (32-36) g/dl RDW 13.6 (11.5-14.0) % Plt Count 271 (150-450) K/mm3 MPV 9.9 H (6-9.5) fl Gran % 74.6 H (36.0-66.0) % Eos # (Auto) 0.03 (0-0.5) Absolute Lymphs (auto) 1.56 (1.0-4.6) Absolute Monos (auto) 0.78 (0.0-1.3) Lymphocytes % 16.6 L (24.0-44.0) % Monocytes % 8.3 (0.0-12.0) % Eosinophils % 0.3 (0.00-5.0) % Basophils % 0.2 (0.0-0.4) % Absolute Granulocytes 7.00 H (1.4-6.9) Basophils # 0.02 (0-0.4) Sodium 138 (137-145) mmol/L Potassium 4.5 (3.5-5.1) mmol/L Chloride 102 (98-107) mmol/L Carbon Dioxide 27 (22-30) mmol/L Anion Gap 12.4 (5-15) MEQ/L BUN 10 (7-17) mg/dL Creatinine 0.65 (0.52-1.04) mg/dL Estimated GFR > 60.0 ML/MIN Glucose 91 (74-106) mg/dL Calcium 9.2 (8.4-10.2) mg/dL Magnesium 2.0 (1.6-2.3) mg/dL Urine Color (YELLOW) Urine Appearance (CLEAR) Urine pH (5-6) Ur Specific [place] (1.005-1.025) Urine Protein (Negative) Urine Ketones (NEGATIVE) Urine Blood (0-5) Blake/ul Urine Nitrite (NEGATIVE) Urine Bilirubin (NEGATIVE) Urine Urobilinogen (0-1) mg/dL Ur Leukocyte Esterase (NEGATIVE) Urine WBC (Auto) (0-5) /HPF Urine RBC (Auto) (0-2) /HPF U Epithel Cells (Auto) (FEW) /HPF Urine Bacteria (Auto) (NEGATIVE) /HPF Urine Mucus (Auto) (NEGATIVE) /HPF Urine Culture Reflexed (NO) Urine Glucose (NEGATIVE) mg/dL Urine Opiates Level (NEGATIVE) Ur Methadone (NEGATIVE) Urine Barbiturates (NEGATIVE) Ur Phencyclidine (PCP) (NEGATIVE) Urine Amphetamine (NEGATIVE) U Benzodiazepine Level (NEGATIVE) Urine Cocaine (NEGATIVE) Urine Marijuana (THC) (NEGATIVE) 12/03/18 12/03/18 Range/Units 13:54 13:54 WBC (4.0-10.5) K/mm3 RBC (4.1-5.4) M/mm3 Hgb (12.0-16.0) gm/dl Hct (35-47) % MCV (78-100) fl MCH (26-32) pg MCHC (32-36) g/dl RDW (11.5-14.0) % Plt Count (150-450) K/mm3 MPV (6-9.5) fl Gran % (36.0-66.0) % Eos # (Auto) (0-0.5) Absolute Lymphs (auto) (1.0-4.6) Absolute Monos (auto) (0.0-1.3) Lymphocytes % (24.0-44.0) % Monocytes % (0.0-12.0) % Eosinophils % (0.00-5.0) % Basophils % (0.0-0.4) % Absolute Granulocytes (1.4-6.9) Basophils # (0-0.4) Sodium (137-145) mmol/L Potassium (3.5-5.1) mmol/L Chloride (98-107) mmol/L Carbon Dioxide (22-30) mmol/L Anion Gap (5-15) MEQ/L BUN (7-17) mg/dL Creatinine (0.52-1.04) mg/dL Estimated GFR ML/MIN Glucose (74-106) mg/dL Calcium (8.4-10.2) mg/dL Magnesium (1.6-2.3) mg/dL Urine Color YELLOW (YELLOW) Urine Appearance CLEAR (CLEAR) Urine pH 7.0 (5-6) Ur Specific [place] 1.006 (1.005-1.025) Urine Protein NEGATIVE (Negative) Urine Ketones NEGATIVE (NEGATIVE) Urine Blood NEGATIVE (0-5) Blake/ul Urine Nitrite NEGATIVE (NEGATIVE) Urine Bilirubin NEGATIVE (NEGATIVE) Urine Urobilinogen NEGATIVE (0-1) mg/dL Ur Leukocyte Esterase NEGATIVE (NEGATIVE) Urine WBC (Auto) NONE (0-5) /HPF Urine RBC (Auto) NONE (0-2) /HPF U Epithel Cells (Auto) RARE (FEW) /HPF Urine Bacteria (Auto) NONE (NEGATIVE) /HPF Urine Mucus (Auto) SLIGHT (NEGATIVE) /HPF Urine Culture Reflexed NO (NO) Urine Glucose NEGATIVE (NEGATIVE) mg/dL Urine Opiates Level NEGATIVE (NEGATIVE) Ur Methadone NEGATIVE (NEGATIVE) Urine Barbiturates NEGATIVE (NEGATIVE) Ur Phencyclidine (PCP) NEGATIVE (NEGATIVE) Urine Amphetamine NEGATIVE (NEGATIVE) U Benzodiazepine Level NEGATIVE (NEGATIVE) Urine Cocaine NEGATIVE (NEGATIVE) Urine Marijuana (THC) POSITIVE (NEGATIVE) - Progress Progress Note: 12/03/18 15:31 ANTIVERT 25MG ORALLY Counseled pt/family regarding: lab results, diagnosis, need for follow-up - Departure Departure Disposition: Home Clinical Impression: VERTIGO, SUBSTANCE ABUSE Condition: Stable Critical Care Time: No Referrals: ANDREA CHRISTY [Primary Care Provider] - Additional Instructions: CONSULT YOUR PRIMARY CARE PROVIDER FOR EVALUATION IN 1 WEEK. ANTIVERT 25MG EVERY 8 HOURS FOR DIZZINESS. FOLLOWUP WITH YOUR PRIMARY CARE PROVIDER IN 1 WEEK. Prescriptions: Meclizine HCl 25 mg [Antivert 25 mg] 0 mg PO Q8HPRN PRN #20 tablet PRN Reason: Dizziness
== END 2018-12-03 15:52 | disposition home or self-care (01) ==
LOC: ED 13:02
DX: R42 Dizziness and giddiness (principal); F12.10 Cannabis abuse, uncomplicated; Z79.899 Other long term (current) drug therapy
CPT/HCPCS: 36000; 36415; 80048; 80307; 81001; 83735; 85025; 93005; 96360; 96374; 99284; J2405; A9270-GY

== ENCOUNTER 2019-02-05 14:09 | Emergency (ER) | payer OTHER | END 2019-02-05 16:25 | disposition home or self-care (01) | LOC: ED 14:09 ==

== ENCOUNTER 2019-03-13 11:05 | Emergency (ER) | payer OTHER ==
--- NOTE | 2019-03-13 11:29 | ERPHSYRPT ---
- History of Present Illness Time Seen by Provider: 03/13/19 11:27 Historian: patient Exam Limitations: no limitations Patient Subjective Stated Complaint: pt states she has had l upper abdominal pain , nausea , green stools. Triage Nursing Assessment: pt is gaurding l abdomen, alert and oriented.pt rates pain as 8 Physician History: 43 y/o white female, known to this ED, for various pain issues. pt states she has luq abd pain for 24 hours. sudden onset. seen at pcp office. no work up performed. sent to ED. denies n/v/d. pt denies cp, denies soa. Timing/Duration: day(s) (1) Activities at Onset: none Quality: sharpness, stabbing Abdominal Pain Onset Location: LUQ Pain Radiation: no radiation Severity of Pain-Max: moderate Severity of Pain-Current: moderate Modifying Factors: Improves With: palpation. Worsens With: coughing, vomiting Associated Symptoms: No chest pain, No diaphoresis, No diarrhea, No fever/chills , No loss of appetite, No nausea, No vomiting Previous symptoms: no prior history Allergies/Adverse Reactions: haloperidol [From Haldol] Allergy (Mild, Verified 03/13/19 11:22) "CAN'T MOVE AT ALL FOR 3 DAYS" Home Medications: PANTOPRAZOLE 40 mg Tablet [Protonix 40MG Tablet] 40 mg PO QAM 06/23/18 [ History] Aspirin EC 81 mg [Ecotrin 81 mg] 81 mg PO DAILY 02/05/19 [History] Albuterol Sulfate [Proair Respiclick] 1 puff PO BID PRN 03/13/19 [History] Alprazolam 1 mg [Xanax 1 mg] 1 mg PO TID PRN 03/13/19 [History] Hx Tetanus, Diphtheria Vaccination/Date Given: Yes (2009) Hx Influenza Vaccination/Date Given: No Hx Pneumococcal Vaccination/Date Given: No - Review of Systems Constitutional: No Symptoms Eyes: No Symptoms Ears, Nose, & Throat: No Symptoms Respiratory: No Symptoms Cardiac: No Symptoms Abdominal/Gastrointestinal: Abdominal Pain (luq) Genitourinary Symptoms: No Symptoms Musculoskeletal: No Symptoms Skin: No Symptoms Neurological: No Symptoms Psychological: No Symptoms Endocrine: No Symptoms Hematologic/Lymphatic: No Symptoms Immunological/Allergic: No Symptoms All Other Systems: Reviewed and Negative - Past Medical History Pertinent Past Medical History: Yes Neurological History: Migraines ENT History: No Pertinent History Cardiac History: No Pertinent History Respiratory History: Asthma Endocrine Medical History: Hypoglycemia Musculoskeletal History: Fibromyalgia GI Medical History: GERD History: No Pertinent History Psycho-Social History: Anxiety Female Reproductive Disorders: Fibroids Other Medical History: anxiety, fibromyalgia, hypoglycemia, migraines, asthma. - Past Surgical History Past Surgical History: Yes Neuro Surgical History: No Pertinent History Cardiac: No Pertinent History Respiratory: No Pertinent History Gastrointestinal: No Pertinent History Genitourinary: No Pertinent History Musculoskeletal: No Pertinent History Female Surgical History: Hysterectomy, Section, Other Other Surgical History: cervical leap - Social History Smoking Status: Current every day smoker How long have you smoked: 29 Exposure to second hand smoke: Yes Alcohol Use: None Drug Use: marijuana Patient Lives Alone: No Significant Family History: hypertension - Female History Hx Last Menstrual Period: hysterectomy Hx Now: No - Nursing Vital Signs Nursing Vital Signs: Initial Vital Signs Temperature 97.9 F 03/13/19 11:10 Pulse Rate 92 H 03/13/19 11:10 Respiratory Rate 18 03/13/19 11:10 Blood Pressure 142/91 03/13/19 11:10 O2 Sat by Pulse Oximetry 98 03/13/19 11:10 Pain Scale Pain Intensity 8 - Physical Exam General Appearance: no apparent distress, alert, anxiety Eye Exam: PERRL/EOMI, eyes nml inspection Ears, Nose, Throat Exam: normal ENT inspection, moist mucous membranes Neck Exam: normal inspection, non-tender, supple, full range of motion Respiratory Exam: normal breath sounds, lungs clear, airway intact, No chest tenderness, No respiratory distress Cardiovascular Exam: regular rate/rhythm, normal heart sounds, normal peripheral pulses Gastrointestinal/Abdomen Exam: soft, normal bowel sounds, tenderness (left upper quadran), No guarding Pelvic Exam: not done Rectal Exam: not done Back Exam: normal inspection, normal range of motion, No CVA tenderness, No vertebral tenderness Extremity Exam: normal inspection, normal range of motion, pelvis stable Neurologic Exam: alert, oriented x 3, cooperative, employment coordinator II-XII nml as tested Skin Exam: normal color, warm, dry Lymphatic Exam: No adenopathy SpO2 Interpretation: normal SpO2: 98 O2 Delivery: Room Air - Course Nursing assessment & vital signs reviewed: Yes Ordered Tests: Active Orders 24 hr Category Date Time Status EKG-ER Only STAT Care 03/13/19 13:16 Active ABDOMEN AND PELVIS W/0 CONTRAS [CT] Stat Exams 03/13/19 11:58 Completed UA W/RFX UR CULTURE Stat Lab 03/13/19 12:17 Completed Medication Summary Discontinued Medications Generic Name Dose Route Start Last Admin Trade Name Freq PRN Reason Stop Dose Admin Ketorolac Tromethamine 60 mg 03/13/19 13:15 Toradol 30 Mg Injection IM 03/13/19 13:16 STAT ONE Lab/Rad Data: Laboratory Results 03/13/19 Range/Units 12:17 Urine Color STRAW (YELLOW) Urine Appearance CLEAR (CLEAR) Urine pH 7.0 (5-6) Ur Specific [place] 1.003 (1.005-1.025) Urine Protein NEGATIVE (Negative) Urine Ketones NEGATIVE (NEGATIVE) Urine Blood NEGATIVE (0-5) Blake/ul Urine Nitrite NEGATIVE (NEGATIVE) Urine Bilirubin NEGATIVE (NEGATIVE) Urine Urobilinogen NEGATIVE (0-1) mg/dL Ur Leukocyte Esterase NEGATIVE (NEGATIVE) Urine WBC (Auto) NONE (0-5) /HPF Urine RBC (Auto) NONE (0-2) /HPF U Epithel Cells (Auto) RARE (FEW) /HPF Urine Bacteria (Auto) NONE (NEGATIVE) /HPF Urine Culture Reflexed NO (NO) Urine Glucose NEGATIVE (NEGATIVE) mg/dL - Progress Progress: unchanged Progress Note: 03/13/19 13:26 pt refuses further lab work up. she does not want any narcotics in ED. i offered both. Counseled pt/family regarding: lab results, diagnosis, need for follow-up, rad results - Departure Departure Disposition: Home Clinical Impression: Abdominal pain Condition: Stable Critical Care Time: No Referrals: ANDREA JONES [Primary Care Provider] - Additional Instructions: clear liquids diet and advance to regular diet as tolerated. avoid fatty greasy spicy foods. follow up with dr. jones in his office for further management Prescriptions: Hydrocodone/APAP 5/325 [[place] 5/325 mg] 1 each PO Q6H PRN PRN #2 tablet MDD 2 PRN Reason: Pain
--- NOTE | 2019-03-13 12:20 | XRAY ---
Indication: Right flank pain. History stones. Multiple contiguous axial images obtained through the abdomen and pelvis without contrast using renal stone protocol. Comparison: August 29, 2018. Lung bases demonstrate stable 9 mm peripheral right middle lobe noncalcified nodule. No infiltrate or effusion. Heart is not enlarged. Again no renal calculus or evidence for obstructive uropathy in either system. Noncontrasted stomach and bowel loops appear nonobstructed. Again normal appendix. Stable minimal colonic diverticulosis without diverticulitis and previous hysterectomy. No free fluid/air. Remaining liver, gallbladder, pancreas, spleen, adrenal glands, kidneys, ureters, bladder, and aorta appear unremarkable for noncontrast exam. Osseous structures intact. Impression: 1. Again negative renal calculus or evidence for obstructive uropathy. 2. Stable colonic diverticulosis without diverticulitis and indeterminant right middle lobe noncalcified nodule. 3. Remaining CT abdomen/pelvis without contrast exam is negative. CTDI 23.08
[2019-03-13 12:28] LABS: Appearance CLEAR (CLEAR); Bilirubin NEGATIVE (NEGATIVE); Blood NEGATIVE Ery/ul (0-5); Epithelial Cells RARE /HPF (FEW); Glucose NEGATIVE (NEGATIVE); Ketones NEGATIVE (NEGATIVE); Leukocyte Esterase NEGATIVE (NEGATIVE); Nitrite NEGATIVE (NEGATIVE); Protein,Urine Dip NEGATIVE (Negative); Specific Gravity 1.003 (1.005-1.025); Urobilinogen NEGATIVE mg/dL (0-1)
[2019-03-13] MEDS ORDERED: TORAdol 30 mg Injection IM ONE (13:15)
[2019-03-13] MEDS ORDERED: TORAdol 30 mg Injection ONE (13:37)
[2019-03-13 14:07] VITALS: BP 123/87; PULSE 64; O2SAT 100
== END 2019-03-13 14:13 | disposition home or self-care (01) ==
LOC: ED 11:05
DX: R10.9 Unspecified abdominal pain (principal)
CPT/HCPCS: 74176; 81001; 82962; 93005; 96372; 99284; J1885

== ENCOUNTER 2019-06-15 14:38 | Emergency (ER) | payer OTHER ==
[2019-06-15] MEDS ORDERED: TORAdol 30 mg Injection IV ONE (14:56)
[2019-06-15] MEDS ORDERED: TYLENOL 325 MG PO ONE (14:56)
[2019-06-15] MEDS ORDERED: Zofran 4 MG/2 ML VIAL IV ONE (14:56)
[2019-06-15] MEDS ORDERED: Sodium Chloride 0.9% 1000 ML 1,000 ML IV STA (14:56)
--- NOTE | 2019-06-15 15:08 | ERPHSYRPT ---
- History of Present Illness Time Seen by Provider: 06/15/19 14:39 Historian: patient Exam Limitations: no limitations Physician History: Patient is here with right flank pain, abdominal pain for up to two weeks. It is worse today. Patient states it has been a gradual onset. She has tried OTC medication. Patient has had a hysterectomy with ovaries not removed. Location: right flank radiation none severity: moderate type: sharp frequency: intermittent duration: 2 weeks Timing/Duration: week(s) (2 weeks) Activities at Onset: none Quality: sharpness Pain Radiation: RLQ Severity of Pain-Max: moderate Severity of Pain-Current: moderate Associated Symptoms: denies symptoms Previous symptoms: no prior history Allergies/Adverse Reactions: haloperidol [From Haldol] Allergy (Mild, Verified 06/15/19 15:00) "CAN'T MOVE AT ALL FOR 3 DAYS" Home Medications: PANTOPRAZOLE 40 mg Tablet [Protonix 40MG Tablet] 40 mg PO QAM 06/23/18 [ History] Albuterol Sulfate [Proair Respiclick] 1 puff PO BID PRN 03/13/19 [History] Alprazolam 1 mg [Xanax 1 mg] 1 mg PO TID PRN 03/13/19 [History] Hx Tetanus, Diphtheria Vaccination/Date Given: Yes Hx Influenza Vaccination/Date Given: No Hx Pneumococcal Vaccination/Date Given: No - Review of Systems Constitutional: No Fever, No Chills Eyes: No Symptoms Ears, Nose, & Throat: No Symptoms Respiratory: No Cough, No Dyspnea Cardiac: No Chest Pain, No Edema, No Syncope Abdominal/Gastrointestinal: Abdominal Pain, No Nausea, No Vomiting, No Diarrhea Genitourinary Symptoms: No Dysuria Musculoskeletal: No Back Pain, No Neck Pain Skin: No Rash Neurological: No Dizziness, No Focal Weakness, No Sensory Changes Psychological: No Symptoms Endocrine: No Symptoms All Other Systems: Reviewed and Negative - Past Medical History Pertinent Past Medical History: Yes Neurological History: Migraines ENT History: No Pertinent History Cardiac History: No Pertinent History Respiratory History: Asthma Endocrine Medical History: Hypoglycemia Musculoskeletal History: Fibromyalgia GI Medical History: GERD History: No Pertinent History Psycho-Social History: Anxiety, Depression Female Reproductive Disorders: Fibroids Other Medical History: FIBROMYALGIA, ANXIETY DISORDER. metabolic X - Past Surgical History Past Surgical History: Yes Neuro Surgical History: No Pertinent History Cardiac: No Pertinent History Respiratory: No Pertinent History Gastrointestinal: No Pertinent History Genitourinary: No Pertinent History Musculoskeletal: No Pertinent History Female Surgical History: Hysterectomy, Section Other Surgical History: tonsillectomy - leep - d and c - Social History Smoking Status: Current every day smoker How long have you smoked: 4 years Exposure to second hand smoke: Yes Alcohol Use: None Drug Use: none Patient Lives Alone: No Significant Family History: hypertension - Nursing Vital Signs Nursing Vital Signs: Initial Vital Signs Temperature 98.4 F 06/15/19 14:41 Pulse Rate 91 H 06/15/19 14:41 Blood Pressure 138/90 06/15/19 14:41 O2 Sat by Pulse Oximetry 99 06/15/19 14:41 Pain Scale Pain Intensity 4 - Physical Exam General Appearance: no apparent distress, alert Eye Exam: PERRL/EOMI, eyes nml inspection Ears, Nose, Throat Exam: normal ENT inspection, pharynx normal, moist mucous membranes Neck Exam: normal inspection, non-tender, supple, full range of motion Respiratory Exam: normal breath sounds, lungs clear, No respiratory distress Cardiovascular Exam: regular rate/rhythm, normal heart sounds Gastrointestinal/Abdomen Exam: soft, other (abdomen soft without rebound or guarding. no masses. right flank tenderness ), No tenderness, No mass Back Exam: normal inspection, normal range of motion, No CVA tenderness, No vertebral tenderness Extremity Exam: normal inspection, normal range of motion, pelvis stable Neurologic Exam: alert, oriented x 3, cooperative, normal mood/affect, nml cerebellar function, sensation nml, No motor deficits Skin Exam: normal color, warm, dry - Course Nursing assessment & vital signs reviewed: Yes - Radiology Exams Chest X-ray Interpretation: Interpreted by me, No Pneumonia, No Pneumothorax Ordered Tests: Active Orders 24 hr Category Date Time Status IV Insertion STAT Care 06/15/19 14:56 Active ABDOMEN AND PELVIS W CONTRAST [CT] Stat Exams 06/15/19 14:57 Taken CHEST 2 VIEWS (PA AND LAT) Stat Exams 06/15/19 14:57 Taken CBC W DIFF Stat Lab 06/15/19 15:35 Completed CMP Stat Lab 06/15/19 15:35 Completed HCG QUALITATIVE,SERUM Stat Lab 06/15/19 15:35 Completed LIPASE Stat Lab 06/15/19 15:35 Completed Lactic Acid Stat Lab 06/15/19 14:56 Completed UA W/RFX UR CULTURE Stat Lab 06/15/19 15:03 Completed Medication Summary Discontinued Medications Generic Name Dose Route Start Last Admin Trade Name [place] PRN Reason Stop Dose Admin Acetaminophen 975 mg 06/15/19 14:56 06/15/19 15:44 Tylenol 325 Mg PO 06/15/19 14:57 975 mg STAT ONE Administration Acetaminophen Confirm 06/15/19 15:15 Tylenol 325 Mg Administered 06/15/19 15:16 Dose 975 mg .ROUTE .STK-MED ONE Sodium Chloride 1,000 mls @ 999 mls/hr 06/15/19 14:56 06/15/19 16:54 Sodium Chloride 0.9% 1000 Ml IV 06/15/19 15:56 Infused .Q1H1M STA Infusion Sodium Chloride Confirm 06/15/19 15:15 Sodium Chloride 0.9% 1000 Ml Administered 06/15/19 15:16 Dose 1,000 mls @ ud .ROUTE .STK-MED ONE Ketorolac Tromethamine 30 mg 06/15/19 14:56 06/15/19 15:44 Toradol 30 Mg Injection IV 06/15/19 14:57 30 mg STAT ONE Administration Ketorolac Tromethamine Confirm 06/15/19 15:15 Toradol 30 Mg Injection Administered 06/15/19 15:16 Dose 30 mg .ROUTE .STK-MED ONE Ondansetron HCl 4 mg 06/15/19 14:56 06/15/19 15:44 Zofran 4 Mg/2 Ml Vial IV 06/15/19 14:57 4 mg STAT ONE Administration Ondansetron HCl Confirm 06/15/19 15:15 Zofran 4 Mg/2 Ml Vial Administered 06/15/19 15:16 Dose 4 mg .ROUTE .STK-MED ONE Lab/Rad Data: Laboratory Result Diagrams 06/15/19 15:35 06/15/19 15:35 Laboratory Results 06/15/19 06/15/19 06/15/19 Range/Units 15:35 15:35 15:35 WBC 9.6 (4.0-10.5) K/mm3 RBC 3.97 L (4.1-5.4) M/mm3 Hgb 12.4 (12.0-16.0) gm/dl Hct 37.4 (35-47) % MCV 94.2 (78-100) fl MCH 31.2 (26-32) pg MCHC 33.2 (32-36) g/dl RDW 12.6 (11.5-14.0) % Plt Count 269 (150-450) K/mm3 MPV 9.8 H (6-9.5) fl Gran % 62.2 (36.0-66.0) % Eos # (Auto) 0.12 (0-0.5) Absolute Lymphs (auto) 2.39 (1.0-4.6) Absolute Monos (auto) 1.08 (0.0-1.3) Lymphocytes % 25.0 (24.0-44.0) % Monocytes % 11.3 (0.0-12.0) % Eosinophils % 1.3 (0.00-5.0) % Basophils % 0.2 (0.0-0.4) % Absolute Granulocytes 5.94 (1.4-6.9) Basophils # 0.02 (0-0.4) Sodium 139 (137-145) mmol/L Potassium 3.9 (3.5-5.1) mmol/L Chloride 103 (98-107) mmol/L Carbon Dioxide 28 (22-30) mmol/L Anion Gap 11.0 (5-15) MEQ/L BUN 15 (7-17) mg/dL Creatinine 0.68 (0.52-1.04) mg/dL Estimated GFR > 60.0 ML/MIN Glucose 78 (74-106) mg/dL Lactic Acid (0.4-2.0) Calcium 9.1 (8.4-10.2) mg/dL Total Bilirubin 0.50 (0.2-1.3) mg/dL AST 22 (14-36) U/L ALT 20 (0-35) U/L Alkaline Phosphatase 68 (38-126) U/L Serum Total Protein 7.3 (6.3-8.2) g/dL Albumin 4.2 (3.5-5.0) g/dL Lipase 139 (23-300) U/L Serum , Qual NEGATIVE (Negative) Urine Color (YELLOW) Urine Appearance (CLEAR) Urine pH (5-6) Ur Specific [place] (1.005-1.025) Urine Protein (Negative) Urine Ketones (NEGATIVE) Urine Blood (0-5) Blake/ul Urine Nitrite (NEGATIVE) Urine Bilirubin (NEGATIVE) Urine Urobilinogen (0-1) mg/dL Ur Leukocyte Esterase (NEGATIVE) Urine WBC (Auto) (0-5) /HPF Urine RBC (Auto) (0-2) /HPF U Epithel Cells (Auto) (FEW) /HPF Urine Bacteria (Auto) (NEGATIVE) /HPF Urine Mucus (Auto) (NEGATIVE) /HPF Urine Culture Reflexed (NO) Urine Glucose (NEGATIVE) mg/dL 06/15/19 06/15/19 Range/Units 15:03 14:56 WBC (4.0-10.5) K/mm3 RBC (4.1-5.4) M/mm3 Hgb (12.0-16.0) gm/dl Hct (35-47) % MCV (78-100) fl MCH (26-32) pg MCHC (32-36) g/dl RDW (11.5-14.0) % Plt Count (150-450) K/mm3 MPV (6-9.5) fl Gran % (36.0-66.0) % Eos # (Auto) (0-0.5) Absolute Lymphs (auto) (1.0-4.6) Absolute Monos (auto) (0.0-1.3) Lymphocytes % (24.0-44.0) % Monocytes % (0.0-12.0) % Eosinophils % (0.00-5.0) % Basophils % (0.0-0.4) % Absolute Granulocytes (1.4-6.9) Basophils # (0-0.4) Sodium (137-145) mmol/L Potassium (3.5-5.1) mmol/L Chloride (98-107) mmol/L Carbon Dioxide (22-30) mmol/L Anion Gap (5-15) MEQ/L BUN (7-17) mg/dL Creatinine (0.52-1.04) mg/dL Estimated GFR ML/MIN Glucose (74-106) mg/dL Lactic Acid 1.1 (0.4-2.0) Calcium (8.4-10.2) mg/dL Total Bilirubin (0.2-1.3) mg/dL AST (14-36) U/L ALT (0-35) U/L Alkaline Phosphatase (38-126) U/L Serum Total Protein (6.3-8.2) g/dL Albumin (3.5-5.0) g/dL Lipase (23-300) U/L Serum , Qual (Negative) Urine Color YELLOW (YELLOW) Urine Appearance CLOUDY (CLEAR) Urine pH 5.0 (5-6) Ur Specific [place] 1.031 (1.005-1.025) Urine Protein NEGATIVE (Negative) Urine Ketones NEGATIVE (NEGATIVE) Urine Blood NEGATIVE (0-5) Blake/ul Urine Nitrite NEGATIVE (NEGATIVE) Urine Bilirubin NEGATIVE (NEGATIVE) Urine Urobilinogen 2 (0-1) mg/dL Ur Leukocyte Esterase NEGATIVE (NEGATIVE) Urine WBC (Auto) 0-2 (0-5) /HPF Urine RBC (Auto) NONE (0-2) /HPF U Epithel Cells (Auto) FEW (FEW) /HPF Urine Bacteria (Auto) NONE (NEGATIVE) /HPF Urine Mucus (Auto) MODERATE (NEGATIVE) /HPF Urine Culture Reflexed NO (NO) Urine Glucose NEGATIVE (NEGATIVE) mg/dL - Progress Progress Note: 06/15/19 15:10 differential diagnosis includes kidney stone, compression fracture, infection, UTI, triple AAA, ectopic - basic labs including: CBC, lipase, CMP, UA, screen - insert IV for fluids, pain meds, nausea control - consider imaging: CT ab/pelvis Patient feels improved with medication. Labs and CT demonstrate no obvious pathology 06/15/19 17:10 Patient feeling improved. She will need follow up exam in 24-48 hours. She will return here for new or changing symptoms. Counseled pt/family regarding: lab results, diagnosis, need for follow-up - Departure Departure Disposition: Home Clinical Impression: Abdominal pain Condition: Stable Critical Care Time: No Referrals: ANDREA CHRITSY [Primary Care Provider] - Instructions: Flank Pain
[2019-06-15] MEDS ORDERED: TORAdol 30 mg Injection ONE (15:15)
[2019-06-15] MEDS ORDERED: Zofran 4 MG/2 ML VIAL ONE (15:15)
[2019-06-15] MEDS ORDERED: TYLENOL 325 MG ONE (15:15)
[2019-06-15] MEDS ORDERED: Sodium Chloride 0.9% 1000 ML 1,000 ML ONE (15:15)
[2019-06-15 15:42] LABS: Absolute Neutrophil Ct (ANC) 5.94 (1.4-6.9); BASOPHIL % 0.2 % (0.0-0.4); Basophil (Absolute #) 0.02 (0-0.4); Eosinophil % 1.3 % (0.00-5.0); Eosinophil (Absolute #) 0.12 (0-0.5); Hematocrit 37.4 % (35-47); Hemoglobin 12.4 gm/dl (12.0-16.0); Lymphocyte (Absolute #) 2.39 (1.0-4.6); Mean Cell Volume 94.2 fl (78-100); Mean Corpuscular Hemoglobin 31.2 pg (26-32); Mean Corpuscular Hgb Concent. 33.2 g/dl (32-36); Mean Platelet Volume 9.8 fl (6-9.5); Monocyte (Absolute #) 1.08 (0.0-1.3); Monocytes % 11.3 % (0.0-12.0); Neutrophil % 62.2 % (36.0-66.0); Platelet Count 269 K/mm3 (150-450); Red Blood Count 3.97 M/mm3 (4.1-5.4); Red Cell Distribution Width 12.6 % (11.5-14.0); White Blood Count 9.6 K/mm3 (4.0-10.5)
[2019-06-15 15:54] LABS: Appearance CLOUDY (CLEAR); Bilirubin NEGATIVE (NEGATIVE); Blood NEGATIVE Ery/ul (0-5); Epithelial Cells FEW /HPF (FEW); Glucose NEGATIVE (NEGATIVE); Ketones NEGATIVE (NEGATIVE); Leukocyte Esterase NEGATIVE (NEGATIVE); Mucus MODERATE /HPF (NEGATIVE); Nitrite NEGATIVE (NEGATIVE); Protein,Urine Dip NEGATIVE (Negative); Specific Gravity 1.031 (1.005-1.025); Urobilinogen 2 mg/dL (0-1); WBC 0-2 /HPF (0-5)
[2019-06-15 15:59] VITALS: PULSE 70
[2019-06-15 16:04] LABS: ALBUMIN 4.2 g/dL (3.5-5.0); ALKALINE PHOSPHATASE 68 U/L (38-126); BLOOD UREA NITROGEN 15 mg/dL (7-17); CHLORIDE 103 mmol/L (98-107); Calcium 9.1 mg/dL (8.4-10.2); Carbon Dioxide 28 mmol/L (22-30); Creatinine 1 0.68 mg/dL (0.52-1.04); Glucose 78 mg/dL (74-106); LIPASE 139 U/L (23-300); Potassium 3.9 mmol/L (3.5-5.1); SGOT/AST 22 U/L (14-36); SGPT/ALT 20 U/L (0-35); SODIUM 139 mmol/L (137-145); Total Protein 7.3 g/dL (6.3-8.2)
[2019-06-15 16:58] VITALS: BP 129/87; O2SAT 98
--- NOTE | 2019-06-15 20:43 | XRAY ---
Indication: Right flank pain. Multiple contiguous axial images obtained through the abdomen and pelvis using 80 cc of Isovue-370 contrast. Comparison: CT renal stone study March 13, 2019. Lung bases demonstrate stable right middle lobe not cost for nodule. No infiltrate or effusion. Heart is not enlarged. Noncontrasted stomach and bowel loops appear nonobstructed. Normal appendix. Stable minimal sigmoid diverticulosis. No free fluid/air. Remaining liver, gallbladder, pancreas, spleen, adrenal glands, kidneys, ureters, bladder, and aorta appear unremarkable. No pathologic retroperitoneal lymphadenopathy. Osseous structures intact. Impression: 1. Stable sigmoid diverticulosis and indeterminant right middle lobe noncalcified nodule. 2. Remaining CT abdomen/pelvis with contrast exam is negative. Comment: Preliminary interpretation was made by C. No critical discrepancy. CTDI 19.59
--- NOTE | 2019-06-15 20:45 | XRAY ---
Indication: Right flank pain. Comparison: November 01, 2018. PA/lateral chest again demonstrates normal heart, lungs, and bony thorax.
== END 2019-06-15 17:29 | disposition home or self-care (01) ==
LOC: ED 14:38
DX: R10.31 Right lower quadrant pain (principal)
CPT/HCPCS: 36000; 36415; 71046; 74177; 80053; 81001; 81025; 83605; 83690; 85025; 96360; 96374; 96375; 99284; J1885; J2405; A9270-GY

== ENCOUNTER 2019-07-01 12:35 | Emergency (ER) | payer OTHER ==
--- NOTE | 2019-07-01 12:43 | ERPHSYRPT ---
- History of Present Illness Time Seen by Provider: 07/01/19 12:43 Source: patient Exam Limitations: no limitations Physician History: 44 y/o white female with significant h/o panic d/o and anxiety presents with episodes of dizziness and near syncope this am. pt sent to ED for evaluation. pt had some dysuria this am. has a headache. pt denies cp, denies soa, and denies abd pain. Timing/Duration: today Severity: mild Character of Deficits: none Deficits: no difficulties Baseline/Normal Cognition: alert oriented x 3 Current Cognition: alert oriented x 3 Baseline Gait: walks w/o assistance Associated Symptoms: denies symptoms Allergies/Adverse Reactions: haloperidol [From Haldol] Allergy (Mild, Verified 06/15/19 15:00) "CAN'T MOVE AT ALL FOR 3 DAYS" Home Medications: PANTOPRAZOLE 40 mg Tablet [Protonix 40MG Tablet] 40 mg PO QAM 06/23/18 [ History] Albuterol Sulfate [Proair Respiclick] 1 puff PO BID PRN 03/13/19 [History] Alprazolam 1 mg [Xanax 1 mg] 1 mg PO TID PRN 03/13/19 [History] Hx Tetanus, Diphtheria Vaccination/Date Given: Yes Hx Influenza Vaccination/Date Given: No Hx Pneumococcal Vaccination/Date Given: No - Review of Systems Constitutional: No Symptoms Eyes: No Symptoms Ears, Nose, & Throat: No Symptoms Respiratory: No Symptoms Cardiac: No Symptoms Abdominal/Gastrointestinal: No Symptoms Genitourinary Symptoms: No Symptoms Musculoskeletal: No Symptoms Skin: No Symptoms Neurological: Dizziness Psychological: No Symptoms Endocrine: No Symptoms Hematologic/Lymphatic: No Symptoms Immunological/Allergic: No Symptoms All Other Systems: Reviewed and Negative - Past Medical History Pertinent Past Medical History: Yes Neurological History: Migraines ENT History: No Pertinent History Cardiac History: No Pertinent History Respiratory History: Asthma Endocrine Medical History: Hypoglycemia Musculoskeletal History: Fibromyalgia GI Medical History: GERD History: No Pertinent History Psycho-Social History: Anxiety, Depression Female Reproductive Disorders: Fibroids Other Medical History: FIBROMYALGIA, ANXIETY DISORDER. metabolic X - Past Surgical History Past Surgical History: Yes Neuro Surgical History: No Pertinent History Cardiac: No Pertinent History Respiratory: No Pertinent History Gastrointestinal: No Pertinent History Genitourinary: No Pertinent History Musculoskeletal: No Pertinent History Female Surgical History: Hysterectomy, Section Other Surgical History: tonsillectomy - leep - d and c - Social History Smoking Status: Current every day smoker How long have you smoked: 4 years Exposure to second hand smoke: Yes Alcohol Use: None Drug Use: none Patient Lives Alone: No Significant Family History: hypertension - Nursing Vital Signs Nursing Vital Signs: Initial Vital Signs Temperature 98.1 F 07/01/19 12:42 Pulse Rate 70 07/01/19 12:42 Respiratory Rate 20 07/01/19 12:42 Blood Pressure 124/91 07/01/19 12:42 O2 Sat by Pulse Oximetry 98 07/01/19 12:42 Pain Scale Pain Intensity 4 - Elvie Coma Scale Best Eye Response (Elvie): (4) open spontaneously Best Verbal Response (Alleene): (5) oriented Best Motor Response (Alleene): (6) obeys commands Alleene Total: 15 - Physical Exam General Appearance: no apparent distress, alert, anxiety Eye Exam: bilateral eye: normal inspection, PERRL, EOMI Ears, Nose, Throat Exam: normal ENT inspection, moist mucous membranes Neck Exam: normal inspection, non-tender, supple, full range of motion Respiratory: normal breath sounds, lungs clear, No chest tenderness, No respiratory distress Cardiovascular: regular rate/rhythm, normal heart sounds, normal peripheral pulses Gastrointestinal: soft, normal bowel sounds, No tenderness Pelvic Exam: not done Rectal Exam: not done Back Exam: normal inspection, normal range of motion, No CVA tenderness, No vertebral tenderness Extremity Exam: normal inspection, normal range of motion, pelvis stable Mental Status: 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 no changes. no acute changes.) Ordered Tests: Active Orders 24 hr Category Date Time Status EKG-ER Only STAT Care 07/01/19 13:06 Active HEAD WITHOUT CONTRAST [CT] Stat Exams 07/01/19 13:07 Completed UA W/RFX UR CULTURE Stat Lab 07/01/19 13:07 Completed Lab/Rad Data: Laboratory Results 07/01/19 Range/Units 13:07 Urine Color YELLOW (YELLOW) Urine Appearance SLIGHTLY CLOUDY (CLEAR) Urine pH 7.0 (5-6) Ur Specific [place] 1.024 (1.005-1.025) Urine Protein NEGATIVE (Negative) Urine Ketones NEGATIVE (NEGATIVE) Urine Blood NEGATIVE (0-5) Blake/ul Urine Nitrite NEGATIVE (NEGATIVE) Urine Bilirubin NEGATIVE (NEGATIVE) Urine Urobilinogen 2 (0-1) mg/dL Ur Leukocyte Esterase NEGATIVE (NEGATIVE) Urine WBC (Auto) 0-2 (0-5) /HPF Urine RBC (Auto) NONE (0-2) /HPF U Epithel Cells (Auto) FEW (FEW) /HPF Urine Bacteria (Auto) NONE (NEGATIVE) /HPF Urine Mucus (Auto) SLIGHT (NEGATIVE) /HPF Urine Culture Reflexed NO (NO) Urine Glucose NEGATIVE (NEGATIVE) mg/dL - Progress Progress: unchanged Counseled pt/family regarding: lab results, diagnosis, need for follow-up, rad results - Departure Departure Disposition: Home Clinical Impression: Dizziness, Anxiety Condition: Stable Critical Care Time: No Referrals: ANDREA CHRISTY [Primary Care Provider] - Additional Instructions: drink plenty of fluids. follow up with primary doctor for further management
[2019-07-01 12:48] VITALS: BP 124/91; PULSE 70; O2SAT 98
[2019-07-01 13:24] LABS: Appearance SLIGHTLY CLOUDY (CLEAR); Bilirubin NEGATIVE (NEGATIVE); Blood NEGATIVE Ery/ul (0-5); Epithelial Cells FEW /HPF (FEW); Glucose NEGATIVE (NEGATIVE); Ketones NEGATIVE (NEGATIVE); Leukocyte Esterase NEGATIVE (NEGATIVE); Mucus SLIGHT /HPF (NEGATIVE); Nitrite NEGATIVE (NEGATIVE); Protein,Urine Dip NEGATIVE (Negative); Specific Gravity 1.024 (1.005-1.025); Urobilinogen 2 mg/dL (0-1); WBC 0-2 /HPF (0-5)
--- NOTE | 2019-07-01 13:29 | XRAY ---
Indication: Dizziness and near syncope. Multiple contiguous axial images obtained through the head without contrast. Comparison: February 20, 2017. Again normal appearing brain parenchyma, ventricles, and bony calvarium. Visualized paranasal sinuses and mastoid air cells are clear. Impression: Continued normal CT head without contrast exam.
== END 2019-07-01 14:17 | disposition home or self-care (01) ==
LOC: ED 12:35
DX: R42 Dizziness and giddiness (principal); F41.9 Anxiety disorder, unspecified; E16.2 Hypoglycemia, unspecified; R55 Syncope and collapse; R51 Headache; Z79.899 Other long term (current) drug therapy; F17.200 Nicotine dependence, unspecified, uncomplicated
CPT/HCPCS: 70450; 81001; 82962; 93005; 99284

== ENCOUNTER 2019-09-02 13:37 | Emergency (ER) | payer OTHER ==
[2019-09-02] MEDS ORDERED: TORAdol 30 mg Injection IV ONE (14:36)
[2019-09-02] MEDS ORDERED: TORAdol 30 mg Injection ONE (14:39)
[2019-09-02] MEDS ORDERED: Sodium Chloride 0.9% 1000 ML 1,000 ML ONE (14:39)
[2019-09-02] MEDS ORDERED: Sodium Chloride 0.9% 1000 ML 1,000 ML IV SCH (14:45)
[2019-09-02 14:46] LABS: Absolute Neutrophil Ct (ANC) 5.94 (1.4-6.9); BASOPHIL % 0.2 % (0.0-0.4); Basophil (Absolute #) 0.02 (0-0.4); Eosinophil % 1.5 % (0.00-5.0); Eosinophil (Absolute #) 0.14 (0-0.5); Hematocrit 39.4 % (35-47); Hemoglobin 13.1 gm/dl (12.0-16.0); Lymphocyte (Absolute #) 2.31 (1.0-4.6); Lymphocytes % 24.8 % (24.0-44.0); Mean Cell Volume 95.2 fl (78-100); Mean Corpuscular Hemoglobin 31.6 pg (26-32); Mean Corpuscular Hgb Concent. 33.2 g/dl (32-36); Mean Platelet Volume 9.9 fl (7.5-11.0); Monocyte (Absolute #) 0.92 (0.0-1.3); Monocytes % 9.9 % (0.0-12.0); Neutrophil % 63.6 % (36.0-66.0); Platelet Count 278 K/mm3 (150-450); Red Blood Count 4.14 M/mm3 (4.1-5.4); Red Cell Distribution Width 12.9 % (11.5-14.0); White Blood Count 9.3 K/mm3 (4.0-10.5)
[2019-09-02 15:01] LABS: ALBUMIN 4.2 g/dL (3.5-5.0); ALKALINE PHOSPHATASE 76 U/L (38-126); AMYLASE 71 U/L (30-110); ANION GAP 9.5 MEQ/L (5-15); BLOOD UREA NITROGEN 15 mg/dL (7-17); CHLORIDE 104 mmol/L (98-107); Carbon Dioxide 26 mmol/L (22-30); Glucose 112 mg/dL (74-106); LIPASE 132 U/L (23-300); Potassium 4.2 mmol/L (3.5-5.1); SGOT/AST 22 U/L (14-36); SGPT/ALT 19 U/L (0-35); SODIUM 136 mmol/L (137-145); Total Protein 7.3 g/dL (6.3-8.2)
--- NOTE | 2019-09-02 15:14 | XRAY ---
Indication: Chest, neck, and left arm pain. No known injury. Comparison: June 15, 2019. Portable chest again demonstrates normal heart, lungs, and bony thorax.
--- NOTE | 2019-09-02 15:16 | XRAY ---
Indication: Chest, neck, and left arm pain. No known injury. Comparison: June 23, 2018. 3 views of the cervical spine unchanged again demonstrating lordotic straightening with vertebral body heights/disc spaces maintained. No new/acute bony, articular, or soft tissue abnormalities.
[2019-09-02] MEDS: Ativan 2 MG/1 ML VIAL IM ONE ×2 (15:35→16:00)
[2019-09-02] MEDS ORDERED: SUBLIMAZE 100 MCG/2 ML IV ONE ×2 (15:35→16:44)
[2019-09-02] MEDS ORDERED: Ativan 2 MG/1 ML VIAL ONE (15:40)
[2019-09-02] MEDS ORDERED: SUBLIMAZE 100 MCG/2 ML ONE ×2 (15:41→17:04)
[2019-09-02 15:58] VITALS: BP 139/88; O2SAT 99
--- NOTE | 2019-09-02 17:28 | ERPHSYRPT ---
- History of Present Illness Source: patient Exam Limitations: no limitations Patient Subjective Stated Complaint: Chest pain Triage Nursing Assessment: Patient ambulated into ED and transferred self to bed. Patient A+O X3. Patient's skin pink, warm and dry. Patient complains of chest pain, left shoulder and neck pain 9/10 sharp, stabbing pain. Patient states her left arm started hurting around 1030 then her chest and neck. Patient took low dose aspirin. Patient states "she just doesn't feel right". Patient under recent stress due to the loss of her daughters boyfriend in a tragic accident this past weekend. Lungs clear a/p augie. Heart tones audible. Physician History: Patient is a 44-year-old white female who started with neck and upper back pain now in the interscapular area started 1030 this morning. She took aspirin pain is now severe cardiac risk factors are essentially negative other than smoking. She does have some chest pain as well Timing/Duration: today Method of Injury: unknown Quality: aching Back Pain Location: C-spine, T-spine Severity of Pain-Max: moderate Severity of Pain-Current: moderate Modifying Factors: Improves With: nothing Previous symptoms: no prior history Allergies/Adverse Reactions: haloperidol [From Haldol] Allergy (Mild, Verified 09/02/19 13:39) "CAN'T MOVE AT ALL FOR 3 DAYS" Home Medications: PANTOPRAZOLE 40 mg Tablet [Protonix 40MG Tablet] 40 mg PO QAM 06/23/18 [ History] Albuterol Sulfate [Proair Respiclick] 1 puff PO BID PRN 03/13/19 [History] Alprazolam 1 mg [Xanax 1 mg] 1 mg PO TID PRN 03/13/19 [History] Hx Tetanus, Diphtheria Vaccination/Date Given: Yes Hx Influenza Vaccination/Date Given: No Hx Pneumococcal Vaccination/Date Given: No Immunizations Up to Date: Yes - Review of Systems Constitutional: No Fever, No Chills Eyes: No Symptoms Ears, Nose, & Throat: No Symptoms Respiratory: No Cough, No Dyspnea Cardiac: No Chest Pain, No Edema, No Syncope Abdominal/Gastrointestinal: No Abdominal Pain, No Nausea, No Vomiting, No Diarrhea Genitourinary Symptoms: No Dysuria Musculoskeletal: Joint Pain, No Back Pain, No Neck Pain Skin: No Rash Neurological: No Dizziness, No Focal Weakness, No Sensory Changes Psychological: No Symptoms Endocrine: No Symptoms All Other Systems: Reviewed and Negative - Past Medical History Pertinent Past Medical History: Yes Neurological History: Migraines ENT History: No Pertinent History Cardiac History: No Pertinent History Respiratory History: Asthma Endocrine Medical History: Hypoglycemia Musculoskeletal History: Fibromyalgia GI Medical History: GERD History: No Pertinent History Psycho-Social History: Anxiety, Depression Female Reproductive Disorders: Fibroids Other Medical History: FIBROMYALGIA, ANXIETY DISORDER. metabolic X - Past Surgical History Past Surgical History: Yes Neuro Surgical History: No Pertinent History Cardiac: No Pertinent History Respiratory: No Pertinent History Gastrointestinal: No Pertinent History Genitourinary: No Pertinent History Musculoskeletal: No Pertinent History Female Surgical History: Hysterectomy, Section Other Surgical History: tonsillectomy - leep - d and c - Social History Smoking Status: Current every day smoker How long have you smoked: 4 years Exposure to second hand smoke: Yes Alcohol Use: None Drug Use: none Patient Lives Alone: No Significant Family History: hypertension - Female History Hx Last Menstrual Period: hysterectomy 2018 Hx Now: No - Nursing Vital Signs Nursing Vital Signs: Initial Vital Signs Temperature 98.0 F 09/02/19 13:40 Pulse Rate 77 09/02/19 13:40 Respiratory Rate 20 09/02/19 13:40 Blood Pressure 120/85 09/02/19 13:40 O2 Sat by Pulse Oximetry 98 09/02/19 13:40 Pain Scale Pain Intensity 6 - Physical Exam General Appearance: moderate distress, alert, other Eye Exam: PERRL/EOMI, eyes nml inspection Ears, Nose, Throat Exam: normal ENT inspection Neck Exam: normal inspection, non-tender, supple, full range of motion, No meningismus, No midline tenderness Respiratory Exam: normal breath sounds, lungs clear, No respiratory distress Cardiovascular Exam: regular rate/rhythm, normal heart sounds Gastrointestinal Exam: soft, No tenderness, No mass Back Exam: other (Marquise to the cervical and thoracic musculature) Extremity Exam: normal inspection, normal range of motion, No calf tenderness, No pedal edema Neurologic Exam: alert, oriented x 3, cooperative, communications coordinator II-XII nml as tested, nml station & gait, sensation nml, depressed mood/affect, No motor deficits Skin Exam: normal color, warm, dry, No rash SpO2: 99 - Course EKG Interpreted by Me: RATE (64), NORMAL AXIS, NORMAL INTERVALS, NORMAL QRS, Non -specific ST Changes - Radiology Exams C-Spine X-ray Interpretation: Interpreted by me, Negative, Other (Trays of the chest shows no acute findings the C-spine is remarkable only for loss of lordosis consistent with muscle spasm) Ordered Tests: Active Orders 24 hr Category Date Time Status Commissary Assistant STAT Care 09/02/19 14:34 Active EKG-ER Only STAT Care 09/02/19 14:33 Active CERVICAL SPINE (2 OR 3 VIEW) Stat Exams 09/02/19 15:03 Completed CHEST 1 VIEW (PORTABLE) Stat Exams 09/02/19 14:34 Completed AMYLASE Stat Lab 09/02/19 14:04 Completed CBC W DIFF Stat Lab 09/02/19 14:04 Completed CMP Stat Lab 09/02/19 14:04 Completed D-DIMER QUANTITATIVE Stat Lab 09/02/19 14:04 Completed LIPASE Stat Lab 09/02/19 14:04 Completed Lactic Acid Stat Lab 09/02/19 14:33 Completed TROPONIN Q3H Lab 09/02/19 14:04 Completed TROPONIN Q3H Lab 09/02/19 17:45 Ordered TROPONIN Q3H Lab 09/02/19 20:45 Ordered TROPONIN Q3H Lab 09/02/19 23:45 Ordered TROPONIN Q3H Lab 09/03/19 02:45 Ordered Medication Summary Generic Name Dose Route Start Last Admin Trade Name Freq PRN Reason Stop Dose Admin Sodium Chloride 1,000 mls @ 100 mls/hr 09/02/19 14:45 09/02/19 14:40 Sodium Chloride 0.9% 1000 Ml IV 10/02/19 14:44 100 mls/hr .Q10H YANI Administration Discontinued Medications Generic Name Dose Route Start Last Admin Trade Name Freq PRN Reason Stop Dose Admin Fentanyl Citrate 50 mcg 09/02/19 15:35 09/02/19 15:45 Sublimaze 100 Mcg/2 Ml IV 09/02/19 15:36 50 mcg STAT ONE Administration Fentanyl Citrate Confirm 09/02/19 15:41 Sublimaze 100 Mcg/2 Ml Administered 09/02/19 15:42 Dose 100 mcg .ROUTE .STK-MED ONE Fentanyl Citrate 50 mcg 09/02/19 16:44 09/02/19 17:06 Sublimaze 100 Mcg/2 Ml IV 09/02/19 16:45 50 mcg STAT ONE Administration Fentanyl Citrate Confirm 09/02/19 17:04 Sublimaze 100 Mcg/2 Ml Administered 09/02/19 17:05 Dose 100 mcg .ROUTE .STK-MED ONE Ketorolac Tromethamine 30 mg 09/02/19 14:36 09/02/19 14:40 Toradol 30 Mg Injection IV 09/02/19 14:37 30 mg STAT ONE Administration Ketorolac Tromethamine Confirm 09/02/19 14:39 Toradol 30 Mg Injection Administered 09/02/19 14:40 Dose 30 mg .ROUTE .STK-MED ONE Lorazepam 1 mg 09/02/19 15:35 09/02/19 16:00 Ativan 2 Mg/1 Ml Vial IM 09/02/19 15:36 Not Given STAT ONE Lorazepam Confirm 09/02/19 15:40 Ativan 2 Mg/1 Ml Vial Administered 09/02/19 15:41 Dose 2 mg .ROUTE .STK-MED ONE Lab/Rad Data: Laboratory Result Diagrams 09/02/19 14:04 09/02/19 14:04 Laboratory Results 09/02/19 09/02/19 09/02/19 Range/Units 14:33 14:04 14:04 WBC (4.0-10.5) K/mm3 RBC (4.1-5.4) M/mm3 Hgb (12.0-16.0) gm/dl Hct (35-47) % MCV (78-100) fl MCH (26-32) pg MCHC (32-36) g/dl RDW (11.5-14.0) % Plt Count (150-450) K/mm3 MPV (7.5-11.0) fl Gran % (36.0-66.0) % Eos # (Auto) (0-0.5) Absolute Lymphs (auto) (1.0-4.6) Absolute Monos (auto) (0.0-1.3) Lymphocytes % (24.0-44.0) % Monocytes % (0.0-12.0) % Eosinophils % (0.00-5.0) % Basophils % (0.0-0.4) % Absolute Granulocytes (1.4-6.9) Basophils # (0-0.4) D-Dimer 231 (215-500) ng/mL Sodium (137-145) mmol/L Potassium (3.5-5.1) mmol/L Chloride (98-107) mmol/L Carbon Dioxide (22-30) mmol/L Anion Gap (5-15) MEQ/L BUN (7-17) mg/dL Creatinine (0.52-1.04) mg/dL Estimated GFR ML/MIN Glucose (74-106) mg/dL Lactic Acid 1.6 (0.4-2.0) Calcium (8.4-10.2) mg/dL Total Bilirubin (0.2-1.3) mg/dL AST (14-36) U/L ALT (0-35) U/L Alkaline Phosphatase (38-126) U/L Troponin I < 0.012 (0.000-0.034) ng/mL Serum Total Protein (6.3-8.2) g/dL Albumin (3.5-5.0) g/dL Amylase (30-110) U/L Lipase (23-300) U/L 09/02/19 09/02/19 Range/Units 14:04 14:04 WBC 9.3 (4.0-10.5) K/mm3 RBC 4.14 (4.1-5.4) M/mm3 Hgb 13.1 (12.0-16.0) gm/dl Hct 39.4 (35-47) % MCV 95.2 (78-100) fl MCH 31.6 (26-32) pg MCHC 33.2 (32-36) g/dl RDW 12.9 (11.5-14.0) % Plt Count 278 (150-450) K/mm3 MPV 9.9 (7.5-11.0) fl Gran % 63.6 (36.0-66.0) % Eos # (Auto) 0.14 (0-0.5) Absolute Lymphs (auto) 2.31 (1.0-4.6) Absolute Monos (auto) 0.92 (0.0-1.3) Lymphocytes % 24.8 (24.0-44.0) % Monocytes % 9.9 (0.0-12.0) % Eosinophils % 1.5 (0.00-5.0) % Basophils % 0.2 (0.0-0.4) % Absolute Granulocytes 5.94 (1.4-6.9) Basophils # 0.02 (0-0.4) D-Dimer (215-500) ng/mL Sodium 136 L (137-145) mmol/L Potassium 4.2 (3.5-5.1) mmol/L Chloride 104 (98-107) mmol/L Carbon Dioxide 26 (22-30) mmol/L Anion Gap 9.5 (5-15) MEQ/L BUN 15 (7-17) mg/dL Creatinine 0.60 (0.52-1.04) mg/dL Estimated GFR > 60.0 ML/MIN Glucose 112 H (74-106) mg/dL Lactic Acid (0.4-2.0) Calcium 9.0 (8.4-10.2) mg/dL Total Bilirubin 0.70 (0.2-1.3) mg/dL AST 22 (14-36) U/L ALT 19 (0-35) U/L Alkaline Phosphatase 76 (38-126) U/L Troponin I (0.000-0.034) ng/mL Serum Total Protein 7.3 (6.3-8.2) g/dL Albumin 4.2 (3.5-5.0) g/dL Amylase 71 (30-110) U/L Lipase 132 (23-300) U/L - Progress Progress: improved - Departure Departure Disposition: Home Clinical Impression: Spasm of cervical paraspinous muscle Condition: Stable Critical Care Time: No Referrals: ANDREA CHRISTY [Primary Care Provider] - Instructions: Muscle Spasms (DC) Prescriptions: Hydrocodone/APAP 5-325 Tab^^^ [[place] 5-325 Tablet^^^] 1 tab PO Q6HPRN PRN #10 tablet MDD 6 PRN Reason: Pain Cyclobenzaprine HCl [Flexeril] 5 mg PO TID 5 Days #15 tablet
[2019-09-02 17:52] VITALS: PULSE 81
== END 2019-09-02 17:45 | disposition home or self-care (01) ==
LOC: ED 13:37
DX: M62.838 Other muscle spasm (principal); M54.2 Cervicalgia; M54.5 Low back pain; R07.9 Chest pain, unspecified; M25.512 Pain in left shoulder; E16.2 Hypoglycemia, unspecified
CPT/HCPCS: 36415; 71045; 72040; 80053; 82150; 83605; 83690; 84484; 85025; 85379; 93005; 93041; 96374; 96375; 99284; J1885; J2060; J3010

== ENCOUNTER 2019-11-27 14:35 | Emergency (ER) | payer OTHER ==
--- NOTE | 2019-11-27 14:41 | ERPHSYRPT ---
- History of Present Illness Time Seen by Provider: 11/27/19 14:40 Source: patient Exam Limitations: no limitations Physician History: This is a 44-year-old overweight white female who presents with bilateral leg achiness with swelling and spontaneous bruising. Patient was concerned and contacted her physician's office. They told her to come to the emergency department to have her evaluated for possible deep venous thromboses. Patient denies any acute injury. Patient was standing on her legs at the voting [place] while at work for approximately 13 hours. Patient has no cough and no shortness of breath. Timing/Duration: yesterday Severity: mild Associated Symptoms: denies symptoms Allergies/Adverse Reactions: haloperidol [From Haldol] Allergy (Mild, Verified 11/27/19 15:44) "CAN'T MOVE AT ALL FOR 3 DAYS" Home Medications: PANTOPRAZOLE 40 mg Tablet [Protonix 40MG Tablet] 40 mg PO QAM 06/23/18 [ History] Albuterol Sulfate [Proair Respiclick] 1 puff PO BID PRN 03/13/19 [History] Alprazolam 1 mg [Xanax 1 mg] 1 mg PO TID PRN 03/13/19 [History] Hx Tetanus, Diphtheria Vaccination/Date Given: Yes Hx Influenza Vaccination/Date Given: No Hx Pneumococcal Vaccination/Date Given: No Travel Risk - International Travel Have you traveled outside of the country in past 3 weeks: No Have you or anyone close to you been diagnosed with or: No Do your reside in a community with a known COVID-19 case?: Yes If Yes where:: [facility] - Coronavirus Screening Has patient experienced Coronavirus symptoms: No - Review of Systems Constitutional: No Symptoms Eyes: No Symptoms Ears, Nose, & Throat: No Symptoms Respiratory: No Symptoms Cardiac: No Symptoms Abdominal/Gastrointestinal: No Symptoms Genitourinary Symptoms: No Symptoms Musculoskeletal: No Symptoms, No Injury Skin: No Symptoms Neurological: No Symptoms Psychological: No Symptoms Endocrine: No Symptoms Hematologic/Lymphatic: No Symptoms Immunological/Allergic: No Symptoms All Other Systems: Reviewed and Negative - Past Medical History Pertinent Past Medical History: Yes Neurological History: Migraines ENT History: No Pertinent History Cardiac History: No Pertinent History Respiratory History: Asthma Endocrine Medical History: Hypoglycemia Musculoskeletal History: Fibromyalgia GI Medical History: GERD History: No Pertinent History Psycho-Social History: Anxiety, Depression Female Reproductive Disorders: Fibroids Other Medical History: FIBROMYALGIA, ANXIETY DISORDER. metabolic X - Past Surgical History Past Surgical History: Yes Neuro Surgical History: No Pertinent History Cardiac: No Pertinent History Respiratory: No Pertinent History Gastrointestinal: No Pertinent History Genitourinary: No Pertinent History Musculoskeletal: No Pertinent History Female Surgical History: Hysterectomy, Section Other Surgical History: tonsillectomy - leep - d and c - Social History Smoking Status: Current every day smoker How long have you smoked: 4 years Exposure to second hand smoke: Yes Alcohol Use: None Drug Use: none Patient Lives Alone: No Significant Family History: hypertension - Nursing Vital Signs Nursing Vital Signs: Initial Vital Signs Temperature 98.9 F 11/27/19 15:30 Pulse Rate 86 11/27/19 15:30 Respiratory Rate 17 11/27/19 15:30 Blood Pressure 144/92 11/27/19 15:30 O2 Sat by Pulse Oximetry 96 11/27/19 15:30 Pain Scale Pain Intensity 2 - Physical Exam General Appearance: no apparent distress, alert, anxiety Eye Exam: PERRL/EOMI, eyes nml inspection Ears, Nose, Throat Exam: normal ENT inspection, moist mucous membranes Neck Exam: normal inspection, non-tender, supple, full range of motion Respiratory Exam: normal breath sounds, lungs clear, airway intact, No chest tenderness, No respiratory distress Cardiovascular Exam: regular rate/rhythm, normal heart sounds, normal peripheral pulses Gastrointestinal/Abdomen Exam: soft, normal bowel sounds, No tenderness Pelvic Exam: not done Rectal Exam: not done Back Exam: normal inspection, normal range of motion, No CVA tenderness, No vertebral tenderness Extremity Exam: normal inspection, normal range of motion, pelvis stable, swelling (Patient states that she has bilateral lower extremity swelling. On my examination it does not appear to be significant swelling present. However she states that this is more than typical for her. Patient has palpable pedal pulses that are strong. There is no evidence of cellulitis) Neurologic Exam: alert, oriented x 3, cooperative, insurance account executive II-XII nml as tested, normal mood/affect, nml cerebellar function, nml station & gait Skin Exam: normal color, warm, dry Lymphatic Exam: No adenopathy SpO2 Interpretation: normal O2 Delivery: Room Air - Course Nursing assessment & vital signs reviewed: Yes Ordered Tests: Active Orders 24 hr Category Date Time Status VENOUS BILATERAL EXTREMITY [US] Stat Exams 11/27/19 15:13 Taken - Progress Progress: unchanged Progress Note: 11/27/19 16:32 Venous Doppler of bilateral lower extremities reveals no evidence of any deep venous thromboses. Counseled pt/family regarding: diagnosis, need for follow-up, rad results - Departure Departure Disposition: Home Clinical Impression: Localized swelling of both lower legs Condition: Stable Critical Care Time: No Referrals: ANDREA CHRISTY [Primary Care Provider] - Additional Instructions: Keep your lower legs elevated above the level of your heart when not up and ambulating. Follow-up with your primary care physician for further management
[2019-11-27 16:44] VITALS: BP 150/94; PULSE 90; O2SAT 99
--- NOTE | 2019-11-27 16:46 | XRAY ---
Indication: Bilateral leg swelling. Two-dimensional sonogram and color Doppler imaging of the major venous vessels of the left and right leg was performed. Comparison: None No thrombus seen in the examined deep venous vessels of the left and right leg including greater saphenous vein. Veins demonstrate normal compressibility. Venous waveforms are normal with and without augmentation. Impression: Left and right legs negative for DVT.
== END 2019-11-27 16:46 | disposition home or self-care (01) ==
LOC: ED 14:35
DX: R22.43 Localized swelling, mass and lump, lower limb, bilateral (principal); M79.7 Fibromyalgia; J45.909 Unspecified asthma, uncomplicated; K21.9 Gastro-esophageal reflux disease without esophagitis; F41.9 Anxiety disorder, unspecified; F32.9 Major depressive disorder, single episode, unspecified; Z79.899 Other long term (current) drug therapy
CPT/HCPCS: 93970; 99283

== ENCOUNTER 2020-01-17 22:45 | Emergency (ER) | payer OTHER ==
[2020-01-17] MEDS ORDERED: TORAdol 30 mg Injection IM ONE (22:57)
[2020-01-17] MEDS ORDERED: Augmentin 875-125 Tablet PO ONE (22:57)
--- NOTE | 2020-01-17 23:07 | ERPHSYRPT ---
- History of Present Illness Time Seen by Provider: 01/17/20 22:50 Source: patient Exam Limitations: no limitations Physician History: 44 years old female with history of anxiety/panic disorder with multiple dental cavities filled in the past presented in the ER with sudden sharp throbbing moderate to severe intensity pain in the right lower molar and premolar area with minimal swelling of gingiva. Pain is aggravated with movements of jaw and unable to find any relieving factor. She has taken naproxen prior to arrival with not any relief. Denies any fever or chills. Denies any neck pain. Timing/Duration: today Allergies/Adverse Reactions: haloperidol [From Haldol] Allergy (Mild, Verified 01/17/20 22:51) "CAN'T MOVE AT ALL FOR 3 DAYS" Home Medications: PANTOPRAZOLE 40 mg Tablet [Protonix 40MG Tablet] 40 mg PO QAM 06/23/18 [History] Albuterol Sulfate [Proair Respiclick] 1 puff PO BID PRN 03/13/19 [History] Alprazolam 1 mg [Xanax 1 mg] 1 mg PO TID PRN 03/13/19 [History] Cyclobenzaprine HCl [Flexeril] 5 mg PO TID PRN 01/17/20 [History] Hx Tetanus, Diphtheria Vaccination/Date Given: Yes Hx Influenza Vaccination/Date Given: No Hx Pneumococcal Vaccination/Date Given: No Travel Risk - International Travel Have you traveled outside of the country in past 3 weeks: No - Coronavirus Screening Are you exhibiting any of the following symptoms?: No Close contact with a COVID-19 positive Pt in past 14-21 Days: No - Review of Systems Constitutional: No Symptoms Eyes: No Symptoms Ears, Nose, & Throat: Mouth Pain Respiratory: No Symptoms Cardiac: No Symptoms Abdominal/Gastrointestinal: No Symptoms Skin: No Symptoms Neurological: No Symptoms Psychological: Anxiety - Past Medical History Pertinent Past Medical History: Yes Neurological History: Migraines ENT History: No Pertinent History Cardiac History: No Pertinent History Respiratory History: Asthma Endocrine Medical History: Hypoglycemia Musculoskeletal History: Fibromyalgia GI Medical History: GERD History: No Pertinent History Psycho-Social History: Anxiety, Depression Female Reproductive Disorders: Fibroids Other Medical History: FIBROMYALGIA, ANXIETY DISORDER. metabolic X - Past Surgical History Past Surgical History: Yes Neuro Surgical History: No Pertinent History Cardiac: No Pertinent History Respiratory: No Pertinent History Gastrointestinal: No Pertinent History Genitourinary: No Pertinent History Musculoskeletal: No Pertinent History Female Surgical History: Hysterectomy, Section Other Surgical History: tonsillectomy - leep - d and c - Social History Smoking Status: Current every day smoker How long have you smoked: 4 years Exposure to second hand smoke: Yes Alcohol Use: None Drug Use: none Patient Lives Alone: No Significant Family History: hypertension - Nursing Vital Signs Nursing Vital Signs: Initial Vital Signs Temperature 98.1 F 01/17/20 22:45 Pulse Rate 88 01/17/20 22:45 Respiratory Rate 18 01/17/20 22:45 Blood Pressure 179/129 01/17/20 22:45 O2 Sat by Pulse Oximetry 98 01/17/20 22:45 Pain Scale Pain Intensity 10 - Physical Exam General Appearance: no apparent distress, alert, anxiety Eye Exam: PERRL/EOMI, eyes nml inspection Ears, Nose, Throat Exam: pharynx normal, other (Mild swelling of gingiva. No fluctuation. Mild tenderness right lower premolar and molar area.) Respiratory Exam: normal breath sounds, lungs clear Cardiovascular Exam: regular rate/rhythm, normal heart sounds Extremity Exam: normal inspection Neurologic Exam: alert, oriented x 3, cooperative Skin Exam: normal color SpO2 Interpretation: normal O2 Delivery: Room Air - Course Nursing assessment & vital signs reviewed: Yes Ordered Tests: Medication Summary Discontinued Medications Generic Name Dose Route Start Last Admin Trade Name Freq PRN Reason Stop Dose Admin Amoxicillin/Clavulanate Potassium 875 mg 01/17/20 22:57 01/17/20 23:15 Augmentin 875-125 Tablet PO 01/17/20 22:58 875 mg STAT ONE Administration Amoxicillin/Clavulanate Potassium Confirm 01/17/20 23:14 Augmentin 875-125 Tablet Administered 01/17/20 23:15 Dose 875 mg .ROUTE .STK-MED ONE Ketorolac Tromethamine 30 mg 01/17/20 22:57 01/17/20 23:15 Toradol 30 Mg Injection IM 01/17/20 22:58 30 mg STAT ONE Administration Ketorolac Tromethamine Confirm 01/17/20 23:14 Toradol 30 Mg Injection Administered 01/17/20 23:15 Dose 30 mg .ROUTE .STK-MED ONE - Progress Progress: improved Progress Note: 01/17/20 She is given Toradol for symptomatic relief and started on Augmentin. Recommended outpatient follow-up with dentist. Counseled pt/family regarding: diagnosis, need for follow-up - Departure Departure Disposition: Home Clinical Impression: Pain, dental Condition: Stable Critical Care Time: No Referrals: ANDREA CHRISTY [Primary Care Provider] - [facility] [NON-STAFF PHY W/O PRIVILEGES] - Follow Up with PCP/3 days Instructions: Tooth Abscess (DC), Dental Pain (DC) Additional Instructions: Take Tylenol/ibuprofen as needed. Follow-up with your dentist for reevaluation early next week. Return to ER for any worsening. Prescriptions: Ibuprofen 600 mg PO Q6HPRN PRN 10 Days #20 tablet PRN Reason: Pain Amox Tr/Potass Clav. 875 mg [Augmentin 875-125 Tablet] 875 mg PO BID 10 Days #20 tablet
[2020-01-17] MEDS ORDERED: TORAdol 30 mg Injection ONE (23:14)
[2020-01-17] MEDS ORDERED: Augmentin 875-125 Tablet ONE (23:14)
[2020-01-18] VITALS: BP 146/86; PULSE 68; O2SAT 97
== END 2020-01-17 23:59 | disposition home or self-care (01) ==
LOC: ED 22:45
DX: K08.89 Other specified disorders of teeth and supporting structures (principal); Z79.899 Other long term (current) drug therapy
CPT/HCPCS: 96372; 99283; J1885; A9270-GY

== ENCOUNTER 2020-02-12 11:24 | Emergency (ER) | payer OTHER ==
--- NOTE | 2020-02-12 11:31 | ERPHSYRPT ---
- History of Present Illness Time Seen by Provider: 02/12/20 11:31 Source: patient Exam Limitations: no limitations Physician History: This is a right-handed 44-year-old female who presents with pain in her left posterior shoulder. Patient does have a history of degenerative disc disease in the cervical spine. Patient does not have any history of recent injury. Patient did see a massage therapist yesterday and had a deep muscle massage as well as decompression therapy. Patient is out of her naproxen. Patient does not want any narcotic medication. Patient does not have chest pain or shortness of breath. Patient had x-rays of her cervical spine approximately 2-3 weeks ago. Patient was taken off of her Flexeril by her primary care physician. Patient does take alprazolam daily for anxiety issues. Occurred: other (Chronic recurrent) Method of Injury: other (Injury) Quality: aching, stabbing Severity of Pain-Max: moderate Severity of Pain-Current: moderate Extremities Pain Location: shoulder: left (Posterior. Medial aspect) Modifying Factors: Improves With: movement Associated Symptoms: No chest discomfort, No chest pain, No dyspnea, No short of breath Allergies/Adverse Reactions: haloperidol [From Haldol] Allergy (Mild, Verified 02/12/20 11:34) "CAN'T MOVE AT ALL FOR 3 DAYS" Home Medications: PANTOPRAZOLE 40 mg Tablet [Protonix 40MG Tablet] 40 mg PO QAM 06/23/18 [History] Albuterol Sulfate [Proair Respiclick] 1 puff PO BID PRN 03/13/19 [History] Alprazolam 1 mg [Xanax 1 mg] 1 mg PO TID PRN 03/13/19 [History] Cyclobenzaprine HCl [Flexeril] 5 mg PO TID PRN 01/17/20 [History] Hx Tetanus, Diphtheria Vaccination/Date Given: Yes Hx Influenza Vaccination/Date Given: No Hx Pneumococcal Vaccination/Date Given: No Travel Risk - International Travel Have you traveled outside of the country in past 3 weeks: No - Coronavirus Screening Are you exhibiting any of the following symptoms?: No Close contact with a COVID-19 positive Pt in past 14-21 Days: No - Review of Systems Constitutional: No Symptoms Eyes: No Symptoms Ears, Nose, & Throat: No Symptoms Respiratory: No Symptoms Cardiac: No Symptoms Abdominal/Gastrointestinal: No Symptoms Genitourinary Symptoms: No Symptoms Musculoskeletal: Myalgias (Left posterior shoulder), No Injury Skin: No No Symptoms Neurological: No No Symptoms Psychological: No No Symptoms Endocrine: No Symptoms Hematologic/Lymphatic: No Symptoms Immunological/Allergic: No Symptoms All Other Systems: Reviewed and Negative - Past Medical History Pertinent Past Medical History: Yes Neurological History: Migraines ENT History: No Pertinent History Cardiac History: No Pertinent History Respiratory History: Asthma Endocrine Medical History: Hypoglycemia Musculoskeletal History: Fibromyalgia GI Medical History: GERD History: No Pertinent History Psycho-Social History: Anxiety, Depression Female Reproductive Disorders: Fibroids Other Medical History: FIBROMYALGIA, ANXIETY DISORDER. metabolic X - Past Surgical History Past Surgical History: Yes Neuro Surgical History: No Pertinent History Cardiac: No Pertinent History Respiratory: No Pertinent History Gastrointestinal: No Pertinent History Genitourinary: No Pertinent History Musculoskeletal: No Pertinent History Female Surgical History: Hysterectomy, Section Other Surgical History: tonsillectomy - leep - d and c - Social History Smoking Status: Current every day smoker How long have you smoked: 4 years Exposure to second hand smoke: Yes Alcohol Use: None Drug Use: none Patient Lives Alone: No Significant Family History: hypertension - Nursing Vital Signs Nursing Vital Signs: Initial Vital Signs Temperature 98.2 F 02/12/20 11:28 Respiratory Rate 20 02/12/20 11:28 Pain Scale Pain Intensity 10 - Physical Exam General Appearance: no apparent distress, alert, anxiety, other (Tearful) Eyes, Ears, Nose, Throat Exam: normal ENT inspection, moist mucous membranes Neck Exam: normal inspection, non-tender, supple, full range of motion, tenderness lateral (Left side paraspinous medial to left scapula) Cardiovascular/Respiratory Exam: chest non-tender (On that lady that we admitted so her came back as 11 back is, wanted to get a little history about from her from him and then also) Abdominal Exam: non-tender Back Exam: normal inspection, normal range of motion, No CVA tenderness, No vertebral tenderness Shoulder Exam: normal inspection, no evidence of injury, normal ROM, soft tissue tenderness (Tenderness on the cranial medial aspect of the left scapula. No spinal tenderness present. Patient states that the pain improves with palpation and pressure.) Elbow/Forearm Exam: normal inspection, non-tender, no evidence of injury, normal ROM Wrist Exam: normal inspection, non-tender, no evidence of injury, normal ROM Hand Exam: normal inspection, non-tender, no evidence of injury, normal ROM Neuro/Tendon Exam: normal sensation, normal motor functions, normal tendon functions, responds to pain Mental Status Exam: alert, oriented x 3, cooperative Skin Exam: normal color, warm, dry SpO2 Interpretation: normal O2 Delivery: Room Air - Course Nursing assessment & vital signs reviewed: Yes - Progress Progress: pain not gone completely, re-examined Counseled pt/family regarding: diagnosis, need for follow-up - Departure Departure Disposition: Home Clinical Impression: Musculoskeletal pain, Muscle spasm Condition: Stable Critical Care Time: No Additional Instructions: Do not take your alprazolam(xanax) medication when taking the muscle relaxant soma. You may resume your alprazolam(xanax) medication once the muscle relaxant soma prescription has been completed. Follow-up with your primary care physician for further management. Prescriptions: Carisoprodol 350 mg [Soma 350 mg] 350 mg PO Q12H PRN PRN #8 tablet MDD 2 PRN Reason: Muscle Spasms Prednisone 10 mg [Deltasone 10 mg] 10 mg PO TID #12 tablet
[2020-02-12] MEDS ORDERED: TORAdol 30 mg Injection IM ONE (11:48)
[2020-02-12] MEDS ORDERED: TORAdol 30 mg Injection ONE (11:52)
[2020-02-12 12:26] VITALS: BP 132/84; PULSE 76; O2SAT 99
== END 2020-02-12 12:26 | disposition home or self-care (01) ==
LOC: ED 11:24
DX: M79.18 Myalgia, other site (principal)
CPT/HCPCS: 96372; 99283; J1885

== ENCOUNTER 2020-03-12 09:37 | Emergency (ER) | payer OTHER ==
[2020-03-12] MEDS ORDERED: Sodium Chloride 0.9% 1000 ML 1,000 ML IV STA (10:01)
[2020-03-12] MEDS ORDERED: Zofran 4 MG/2 ML VIAL IV ONE (10:01)
--- NOTE | 2020-03-12 10:01 | ERPHSYRPT ---
- History of Present Illness Time Seen by Provider: 03/12/20 09:57 Historian: patient Exam Limitations: no limitations Physician History: This is a 44-year-old overweight white female patient of Dr. Ring who has a history of gastroesophageal reflux disease, fibromyalgia, anxiety and depression and presents with 1 week history of significant reflux symptoms followed by right-sided abdominal pain over the last 2 days. She has associated nausea and loose stools. Patient denies chest pain and she denies shortness of breath. She has no cough symptoms. Patient did state that she has changed her diet recently and wonders if this may be causing her symptoms. She states that her stools are various colors. And this is different for her as well. Timing/Duration: gradual onset, worse Activities at Onset: none Quality: cramping Abdominal Pain Onset Location: RUQ, RLQ Pain Radiation: no radiation Severity of Pain-Max: moderate Severity of Pain-Current: moderate Modifying Factors: Improves With: nothing Associated Symptoms: heartburn, nausea, other (Loose soft stools) Previous symptoms: no prior history Allergies/Adverse Reactions: haloperidol [From Haldol] Allergy (Mild, Verified 02/12/20 11:34) "CAN'T MOVE AT ALL FOR 3 DAYS" Home Medications: PANTOPRAZOLE 40 mg Tablet [Protonix 40MG Tablet] 40 mg PO QAM 06/23/18 [History] Alprazolam 1 mg [Xanax 1 mg] 1 mg PO TID PRN 03/13/19 [History] Hx Tetanus, Diphtheria Vaccination/Date Given: Yes Hx Influenza Vaccination/Date Given: No Hx Pneumococcal Vaccination/Date Given: No Travel Risk - International Travel Have you traveled outside of the country in past 3 weeks: No - Coronavirus Screening Are you exhibiting any of the following symptoms?: No Close contact with a COVID-19 positive Pt in past 14-21 Days: No - Review of Systems Constitutional: No Symptoms Eyes: No Symptoms Ears, Nose, & Throat: No Symptoms Respiratory: No Symptoms Cardiac: No Symptoms Abdominal/Gastrointestinal: Abdominal Pain, Nausea, Other (Loose stools) Genitourinary Symptoms: No Symptoms Musculoskeletal: No Symptoms Skin: No Symptoms Neurological: No Symptoms Psychological: No Symptoms Endocrine: No Symptoms Hematologic/Lymphatic: No Symptoms Immunological/Allergic: No Symptoms All Other Systems: Reviewed and Negative - Past Medical History Pertinent Past Medical History: Yes Neurological History: Migraines ENT History: No Pertinent History Cardiac History: No Pertinent History Respiratory History: Asthma Endocrine Medical History: Hypoglycemia Musculoskeletal History: Fibromyalgia GI Medical History: GERD History: No Pertinent History Psycho-Social History: Anxiety, Depression Female Reproductive Disorders: Fibroids Other Medical History: FIBROMYALGIA, ANXIETY DISORDER. metabolic X - Past Surgical History Past Surgical History: Yes Neuro Surgical History: No Pertinent History Cardiac: No Pertinent History Respiratory: No Pertinent History Gastrointestinal: No Pertinent History Genitourinary: No Pertinent History Musculoskeletal: No Pertinent History Female Surgical History: Hysterectomy, Section Other Surgical History: tonsillectomy - leep - d and c - Social History Smoking Status: Current every day smoker How long have you smoked: 4 years Exposure to second hand smoke: Yes Alcohol Use: None Drug Use: none Patient Lives Alone: No Significant Family History: hypertension - Nursing Vital Signs Nursing Vital Signs: Initial Vital Signs Temperature 97.8 F 03/12/20 09:53 Pulse Rate 82 03/12/20 09:53 Respiratory Rate 20 03/12/20 09:53 Blood Pressure 169/115 03/12/20 09:53 O2 Sat by Pulse Oximetry 99 03/12/20 09:53 Pain Scale Pain Intensity 6 - Physical Exam General Appearance: mild distress, alert, anxiety, obese Eye Exam: PERRL/EOMI, eyes nml inspection Ears, Nose, Throat Exam: normal ENT inspection, moist mucous membranes Neck Exam: normal inspection, non-tender, supple, full range of motion Respiratory Exam: normal breath sounds, lungs clear, airway intact, No chest tenderness, No respiratory distress Cardiovascular Exam: regular rate/rhythm, normal heart sounds, normal peripheral pulses Gastrointestinal/Abdomen Exam: soft, normal bowel sounds, tenderness, No guarding, No rebound Pelvic Exam: not done Rectal Exam: not done Back Exam: normal inspection, normal range of motion, No CVA tenderness, No vertebral tenderness Extremity Exam: normal inspection, normal range of motion, pelvis stable Neurologic Exam: alert, oriented x 3, cooperative, 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 tested, nml cerebellar function, nml station & gait, sensation nml Skin Exam: normal color, warm, dry Lymphatic Exam: No adenopathy SpO2 Interpretation: normal O2 Delivery: Room Air - Course Nursing assessment & vital signs reviewed: Yes Ordered Tests: Active Orders 24 hr Category Date Time Status IV Insertion STAT Care 03/12/20 10:01 Active ABDOMEN AND PELVIS W/0 CONTRAS [CT] Stat Exams 03/12/20 10:02 Taken AMYLASE Stat Lab 03/12/20 10:30 Completed CBC W DIFF Stat Lab 03/12/20 10:30 Completed CMP Stat Lab 03/12/20 10:30 Completed LIPASE Stat Lab 03/12/20 10:30 Completed Lactic Acid Stat Lab 03/12/20 10:26 Completed UA W/RFX UR CULTURE Stat Lab 03/12/20 10:10 Completed Medication Summary Discontinued Medications Generic Name Dose Route Start Last Admin Trade Name Freq PRN Reason Stop Dose Admin Sodium Chloride 1,000 mls @ 999 mls/hr 03/12/20 10:01 03/12/20 10:36 Sodium Chloride 0.9% 1000 Ml IV 03/12/20 11:01 999 mls/hr .Q1H1M STA Administration Sodium Chloride Confirm 03/12/20 10:11 Sodium Chloride 0.9% 1000 Ml Administered 03/12/20 10:12 Dose 1,000 mls @ ud .ROUTE .STK-MED ONE Ondansetron HCl 4 mg 03/12/20 10:01 03/12/20 10:36 Zofran 4 Mg/2 Ml Vial IV 03/12/20 10:02 4 mg STAT ONE Administration Ondansetron HCl Confirm 03/12/20 10:11 Zofran 4 Mg/2 Ml Vial Administered 03/12/20 10:12 Dose 4 mg .ROUTE .STK-MED ONE Lab/Rad Data: Laboratory Result Diagrams 03/12/20 10:30 03/12/20 10:30 Laboratory Results 03/12/20 03/12/20 03/12/20 Range/Units 10:30 10:30 10:26 WBC 7.2 (4.0-10.5) K/mm3 RBC 4.25 (4.1-5.4) M/mm3 Hgb 13.4 (12.0-16.0) gm/dl Hct 40.9 (35-47) % MCV 96.2 (78-100) fl MCH 31.5 (26-32) pg MCHC 32.8 (32-36) g/dl RDW 13.0 (11.5-14.0) % Plt Count 258 (150-450) K/mm3 MPV 9.5 (7.5-11.0) fl Gran % 56.4 (36.0-66.0) % Eos # (Auto) 0.13 (0-0.5) Absolute Lymphs (auto) 2.18 (1.0-4.6) Absolute Monos (auto) 0.79 (0.0-1.3) Lymphocytes % 30.4 (24.0-44.0) % Monocytes % 11.0 (0.0-12.0) % Eosinophils % 1.8 (0.00-5.0) % Basophils % 0.4 (0.0-0.4) % Absolute Granulocytes 4.03 (1.4-6.9) Basophils # 0.03 (0-0.4) Sodium 134 L (137-145) mmol/L Potassium 4.3 (3.5-5.1) mmol/L Chloride 103 (98-107) mmol/L Carbon Dioxide 23 (22-30) mmol/L Anion Gap 11.1 (5-15) MEQ/L BUN 9 (7-17) mg/dL Creatinine 0.58 (0.52-1.04) mg/dL Estimated GFR > 60.0 ML/MIN Glucose 96 (74-106) mg/dL Lactic Acid 1.5 (0.4-2.0) Calcium 9.2 (8.4-10.2) mg/dL Total Bilirubin 0.80 (0.2-1.3) mg/dL AST 22 (14-36) U/L ALT 18 (0-35) U/L Alkaline Phosphatase 62 (38-126) U/L Serum Total Protein 7.1 (6.3-8.2) g/dL Albumin 4.4 (3.5-5.0) g/dL Amylase 57 (30-110) U/L Lipase 117 (23-300) U/L Urine Color (YELLOW) Urine Appearance (CLEAR) Urine pH (5-6) Ur Specific [place] (1.005-1.025) Urine Protein (Negative) Urine Ketones (NEGATIVE) Urine Blood (0-5) Blake/ul Urine Nitrite (NEGATIVE) Urine Bilirubin (NEGATIVE) Urine Urobilinogen (0-1) mg/dL Ur Leukocyte Esterase (NEGATIVE) Urine WBC (Auto) (0-5) /HPF Urine RBC (Auto) (0-2) /HPF U Epithel Cells (Auto) (FEW) /HPF Urine Bacteria (Auto) (NEGATIVE) /HPF Urine Mucus (Auto) (NEGATIVE) /HPF Urine Culture Reflexed (NO) Urine Glucose (NEGATIVE) mg/dL 03/12/20 Range/Units 10:10 WBC (4.0-10.5) K/mm3 RBC (4.1-5.4) M/mm3 Hgb (12.0-16.0) gm/dl Hct (35-47) % MCV (78-100) fl MCH (26-32) pg MCHC (32-36) g/dl RDW (11.5-14.0) % Plt Count (150-450) K/mm3 MPV (7.5-11.0) fl Gran % (36.0-66.0) % Eos # (Auto) (0-0.5) Absolute Lymphs (auto) (1.0-4.6) Absolute Monos (auto) (0.0-1.3) Lymphocytes % (24.0-44.0) % Monocytes % (0.0-12.0) % Eosinophils % (0.00-5.0) % Basophils % (0.0-0.4) % Absolute Granulocytes (1.4-6.9) Basophils # (0-0.4) Sodium (137-145) mmol/L Potassium (3.5-5.1) mmol/L Chloride (98-107) mmol/L Carbon Dioxide (22-30) mmol/L Anion Gap (5-15) MEQ/L BUN (7-17) mg/dL Creatinine (0.52-1.04) mg/dL Estimated GFR ML/MIN Glucose (74-106) mg/dL Lactic Acid (0.4-2.0) Calcium (8.4-10.2) mg/dL Total Bilirubin (0.2-1.3) mg/dL AST (14-36) U/L ALT (0-35) U/L Alkaline Phosphatase (38-126) U/L Serum Total Protein (6.3-8.2) g/dL Albumin (3.5-5.0) g/dL Amylase (30-110) U/L Lipase (23-300) U/L Urine Color YELLOW (YELLOW) Urine Appearance SLIGHTLY CLOUDY (CLEAR) Urine pH 7.0 (5-6) Ur Specific [place] 1.009 (1.005-1.025) Urine Protein NEGATIVE (Negative) Urine Ketones NEGATIVE (NEGATIVE) Urine Blood NEGATIVE (0-5) Blake/ul Urine Nitrite NEGATIVE (NEGATIVE) Urine Bilirubin NEGATIVE (NEGATIVE) Urine Urobilinogen NEGATIVE (0-1) mg/dL Ur Leukocyte Esterase NEGATIVE (NEGATIVE) Urine WBC (Auto) NONE (0-5) /HPF Urine RBC (Auto) NONE (0-2) /HPF U Epithel Cells (Auto) RARE (FEW) /HPF Urine Bacteria (Auto) NONE (NEGATIVE) /HPF Urine Mucus (Auto) SLIGHT (NEGATIVE) /HPF Urine Culture Reflexed NO (NO) Urine Glucose NEGATIVE (NEGATIVE) mg/dL - Progress Progress: improved, re-examined Progress Note: 03/12/20 11:10 CAT scan of the abdomen and pelvis shows stable descending duodenal diverticulum, sigmoid diverticulosis, and benign right middle lobe noncalcified nodule. The remaining CAT scan of the abdomen pelvis without contrast exam is negative Counseled pt/family regarding: lab results, diagnosis, need for follow-up, rad results - Departure Departure Disposition: Home Clinical Impression: Abdominal pain Condition: Stable Critical Care Time: No Referrals: ANDREA RING [Primary Care Provider] - Additional Instructions: Drink plenty of fluids. Follow-up with your primary care physician for further management including pain control.
[2020-03-12] MEDS ORDERED: Zofran 4 MG/2 ML VIAL ONE (10:11)
[2020-03-12] MEDS ORDERED: Sodium Chloride 0.9% 1000 ML 1,000 ML ONE (10:11)
[2020-03-12 10:37] LABS: Absolute Neutrophil Ct (ANC) 4.03 (1.4-6.9); BASOPHIL % 0.4 % (0.0-0.4); Basophil (Absolute #) 0.03 (0-0.4); Eosinophil % 1.8 % (0.00-5.0); Eosinophil (Absolute #) 0.13 (0-0.5); Hematocrit 40.9 % (35-47); Hemoglobin 13.4 gm/dl (12.0-16.0); Lymphocyte (Absolute #) 2.18 (1.0-4.6); Lymphocytes % 30.4 % (24.0-44.0); Mean Cell Volume 96.2 fl (78-100); Mean Corpuscular Hemoglobin 31.5 pg (26-32); Mean Corpuscular Hgb Concent. 32.8 g/dl (32-36); Mean Platelet Volume 9.5 fl (7.5-11.0); Monocyte (Absolute #) 0.79 (0.0-1.3); Neutrophil % 56.4 % (36.0-66.0); Platelet Count 258 K/mm3 (150-450); Red Blood Count 4.25 M/mm3 (4.1-5.4); White Blood Count 7.2 K/mm3 (4.0-10.5)
[2020-03-12 10:41] LABS: Appearance SLIGHTLY CLOUDY (CLEAR); Bilirubin NEGATIVE (NEGATIVE); Blood NEGATIVE Ery/ul (0-5); Epithelial Cells RARE /HPF (FEW); Glucose NEGATIVE (NEGATIVE); Ketones NEGATIVE (NEGATIVE); Leukocyte Esterase NEGATIVE (NEGATIVE); Mucus SLIGHT /HPF (NEGATIVE); Nitrite NEGATIVE (NEGATIVE); Protein,Urine Dip NEGATIVE (Negative); Specific Gravity 1.009 (1.005-1.025); Urobilinogen NEGATIVE mg/dL (0-1)
[2020-03-12 10:47] LABS: ALBUMIN 4.4 g/dL (3.5-5.0); ALKALINE PHOSPHATASE 62 U/L (38-126); AMYLASE 57 U/L (30-110); ANION GAP 11.1 MEQ/L (5-15); BLOOD UREA NITROGEN 9 mg/dL (7-17); CHLORIDE 103 mmol/L (98-107); Calcium 9.2 mg/dL (8.4-10.2); Carbon Dioxide 23 mmol/L (22-30); Creatinine 1 0.58 mg/dL (0.52-1.04); EST GLOMERULAR FILTRATION RATE > 60.0 ML/MIN; Glucose 96 mg/dL (74-106); LIPASE 117 U/L (23-300); Potassium 4.3 mmol/L (3.5-5.1); SGOT/AST 22 U/L (14-36); SGPT/ALT 18 U/L (0-35); SODIUM 134 mmol/L (137-145); Total Protein 7.1 g/dL (6.3-8.2)
--- NOTE | 2020-03-12 11:17 | XRAY ---
Indication: Abdomen pain and nausea. Multiple contiguous axial images obtained through the abdomen and pelvis without contrast as ordered. Comparison: June 15, 2019. Lung bases demonstrate stable 9 mm right middle lobe noncalcified nodule favored to be benign given stability. No infiltrate or effusion. Heart is not enlarged. Noncontrasted stomach and bowel loops appear nonobstructed. Stable small descending duodenal diverticulum. Normal appendix. Stable minimal sigmoid diverticulosis and hysterectomy. No free fluid/air. Remaining liver, gallbladder, pancreas, spleen, adrenal glands, kidneys, ureters, bladder, and aorta appear unremarkable for noncontrast exam. Osseous structures intact. Impression: 1. Stable descending duodenum diverticulum, sigmoid diverticulosis, and benign right middle lobe noncalcified nodule. 2. Remaining CT abdomen/pelvis without contrast exam is again negative.
[2020-03-12 11:22] VITALS: BP 153/93; PULSE 61; O2SAT 99
== END 2020-03-12 11:28 | disposition home or self-care (01) ==
LOC: ED 09:37
DX: R10.11 Right upper quadrant pain (principal); K21.9 Gastro-esophageal reflux disease without esophagitis; F41.9 Anxiety disorder, unspecified; R10.31 Right lower quadrant pain
CPT/HCPCS: 36000; 36415; 74176; 80053; 81001; 82150; 83605; 83690; 85025; 96360; 96374; 99284; J2405

== ENCOUNTER 2020-04-02 18:49 | Emergency (ER) | payer OTHER ==
[2020-04-02] MEDS ORDERED: TORAdol 30 mg Injection IM ONE (19:11)
[2020-04-02] MEDS ORDERED: TORAdol 30 mg Injection ONE (19:14)
[2020-04-02 19:21] VITALS: BP 147/95
--- NOTE | 2020-04-02 19:29 | ERPHSYRPT ---
- History of Present Illness Time Seen by Provider: 04/02/20 19:10 Source: patient Physician History: Patient is a 44-year-old female presents to our ED with dental pain shooting into the right side of her head. Patient had a molar extracted 2 days ago. Patient was prescribed [place]. However this is not helping. She called her dentist. Dentist prescribed ibuprofen. Patient took ibuprofen with little relief. Pain described as an ache that tends to shoot a sharp pain to the side of her head. Pain is radiating from the site of dental extraction. No trauma. No fever. No nausea or vomiting. No diaphoresis. No chest pain or shortness of breath. Pain worse with mastication. Pain improved with rest. Patient is otherwise healthy. She voices no other complaints at this time. Timing/Duration: day(s) (2 days) Severity: moderate Modifying Factors: Improves With: medication, ibuprofen Associated Symptoms: denies symptoms Allergies/Adverse Reactions: haloperidol [From Haldol] Allergy (Mild, Verified 04/02/20 19:00) "CAN'T MOVE AT ALL FOR 3 DAYS" Home Medications: PANTOPRAZOLE 40 mg Tablet [Protonix 40MG Tablet] 40 mg PO QAM 06/23/18 [History] Alprazolam 1 mg [Xanax 1 mg] 1 mg PO TID PRN 03/13/19 [History] Hx Tetanus, Diphtheria Vaccination/Date Given: Yes Hx Influenza Vaccination/Date Given: No Hx Pneumococcal Vaccination/Date Given: No Travel Risk - International Travel Have you traveled outside of the country in past 3 weeks: No - Coronavirus Screening Are you exhibiting any of the following symptoms?: No - Review of Systems Constitutional: No Symptoms, No Fever, No Chills Eyes: No Symptoms Ears, Nose, & Throat: No Symptoms Respiratory: No Symptoms, No Cough, No Dyspnea Cardiac: No Symptoms, No Chest Pain, No Edema, No Syncope Abdominal/Gastrointestinal: No Symptoms, No Abdominal Pain, No Nausea, No Vomiting, No Diarrhea Genitourinary Symptoms: No Symptoms, No Dysuria Musculoskeletal: No Symptoms, No Back Pain, No Neck Pain Skin: No Symptoms, No Rash Neurological: No Symptoms, No Dizziness, No Focal Weakness, No Sensory Changes Psychological: No Symptoms Endocrine: No Symptoms Hematologic/Lymphatic: No Symptoms Immunological/Allergic: No Symptoms All Other Systems: Reviewed and Negative - Past Medical History Pertinent Past Medical History: Yes Neurological History: Migraines ENT History: No Pertinent History Cardiac History: No Pertinent History Respiratory History: Asthma Endocrine Medical History: Hypoglycemia Musculoskeletal History: Fibromyalgia GI Medical History: GERD History: No Pertinent History Psycho-Social History: Anxiety, Depression Female Reproductive Disorders: Fibroids Other Medical History: FIBROMYALGIA, ANXIETY DISORDER. metabolic X - Past Surgical History Past Surgical History: Yes Neuro Surgical History: No Pertinent History Cardiac: No Pertinent History Respiratory: No Pertinent History Gastrointestinal: No Pertinent History Genitourinary: No Pertinent History Musculoskeletal: No Pertinent History Female Surgical History: Hysterectomy, Section Other Surgical History: tonsillectomy - leep - d and c - Social History Smoking Status: Current every day smoker How long have you smoked: 4 years Exposure to second hand smoke: Yes Alcohol Use: None Drug Use: none Patient Lives Alone: No Significant Family History: hypertension - Nursing Vital Signs Nursing Vital Signs: Initial Vital Signs Temperature 98.7 F 04/02/20 19:02 Pulse Rate 80 04/02/20 19:02 Respiratory Rate 16 04/02/20 19:02 Blood Pressure 147/95 04/02/20 19:02 O2 Sat by Pulse Oximetry 99 04/02/20 19:02 Pain Scale Pain Intensity 8 - Physical Exam General Appearance: no apparent distress, alert Eye Exam: PERRL/EOMI, eyes nml inspection Ears, Nose, Throat Exam: normal ENT inspection, TMs normal, pharynx normal, moist mucous membranes, other (Molar #17 extracted. No dry socket) Neck Exam: normal inspection, non-tender, supple, full range of motion Respiratory Exam: normal breath sounds, lungs clear, No respiratory distress Cardiovascular Exam: regular rate/rhythm, normal heart sounds, normal peripheral pulses Gastrointestinal/Abdomen Exam: soft, normal bowel sounds, No tenderness, No mass Back Exam: normal inspection, normal range of motion, No CVA tenderness, No vertebral tenderness Extremity Exam: normal inspection, normal range of motion, pelvis stable Neurologic Exam: alert, oriented x 3, cooperative, normal mood/affect, nml cerebellar function, nml station & gait, sensation nml, No motor deficits Skin Exam: normal color, warm, dry, No rash Lymphatic Exam: No adenopathy SpO2 Interpretation: normal O2 Delivery: Room Air - Course Nursing assessment & vital signs reviewed: Yes Ordered Tests: Medication Summary Discontinued Medications Generic Name Dose Route Start Last Admin Trade Name Kenyon PRChris Reason Stop Dose Admin Ketorolac Tromethamine 60 mg 04/02/20 19:11 04/02/20 19:18 Toradol 30 Mg Injection IM 04/02/20 19:12 60 mg STAT ONE Administration Ketorolac Tromethamine Confirm 04/02/20 19:14 Toradol 30 Mg Injection Administered 04/02/20 19:15 Dose 60 mg .ROUTE .[facility] - Progress Progress: improved Progress Note: Patient reassessed. Pain improved after administration of Toradol. Patient declined inferior alveolar block. Prescription for Toradol forwarded to patient's pharmacy. Patient ready for discharge. 04/02/20 19:29 04/02/20 20:15 Counseled pt/family regarding: diagnosis, need for follow-up - Departure Departure Disposition: Home Clinical Impression: Neuralgia, Pain, dental, Dental implant pain Condition: Stable Critical Care Time: No Referrals: ANDREA CHRISTY [Primary Care Provider] - Instructions: Dental Pain (DC) Additional Instructions: Discharge/Care Plan SETH BAGLEY was seen on 04/02/20 in the Emergency Room. The patient was counseled regarding Diagnosis,Lab results, Imaging studies, need for follow up and when to return to the Emergency Room. Prescriptions given: Discharge Note I have spoken with the patient and/or caregivers. I have explained the patient's condition, diagnosis and treatment plan based on the information available to me at this time. I have answered the patient's and/or caregiver's questions and addressed any concerns. The patient and/or caregivers have as good understanding of the patient's diagnosis, condition and treatment plan as can be expected at this point. The vital signs have been stable. The patient's condition is stable and appropriate for discharge from the emergency department. The patient will pursue further outpatient evaluation with the primary care physician or other designated or consulting physician as outlined in the discharge instructions. The patient and/or caregivers are agreeable to this plan of care and follow-up instructions have been explained in detail. The patient and/or caregivers have received these instruction. The patient/and or caregivers are aware that any significant change in condition or worsening of symptoms should prompt an immediate return to this or the closest emergency department or call 911. Prescriptions: Ketorolac Tromethamine [Toradol] 10 mg PO TID PRN 5 Days #15 tablet PRN Reason: Pain
[2020-04-02 19:52] VITALS: PULSE 90; O2SAT 98
== END 2020-04-02 19:50 | disposition home or self-care (01) ==
LOC: ED 18:49
DX: M79.2 Neuralgia and neuritis, unspecified (principal); T85.848A Pain due to other internal prosthetic devices, implants and grafts, initial encounter
CPT/HCPCS: 96372; 99283; J1885

== ENCOUNTER 2020-07-16 12:48 | Emergency (ER) | payer OTHER ==
[2020-07-16] MEDS ORDERED: Zofran 4 MG/2 ML VIAL IV ONE (13:38)
[2020-07-16 13:46] LABS: Absolute Neutrophil Ct (ANC) 6.12 (1.4-6.9); BASOPHIL % 0.2 % (0.0-0.4); Basophil (Absolute #) 0.02 (0-0.4); Eosinophil % 0.9 % (0.00-5.0); Eosinophil (Absolute #) 0.08 (0-0.5); Hematocrit 43.2 % (35-47); Hemoglobin 14.3 gm/dl (12.0-16.0); Lymphocyte (Absolute #) 1.91 (1.0-4.6); Lymphocytes % 21.8 % (24.0-44.0); Mean Cell Volume 94.3 fl (78-100); Mean Corpuscular Hemoglobin 31.2 pg (26-32); Mean Corpuscular Hgb Concent. 33.1 g/dl (32-36); Mean Platelet Volume 9.5 fl (7.5-11.0); Monocyte (Absolute #) 0.64 (0.0-1.3); Monocytes % 7.3 % (0.0-12.0); Neutrophil % 69.8 % (36.0-66.0); Platelet Count 315 K/mm3 (150-450); Red Blood Count 4.58 M/mm3 (4.1-5.4); Red Cell Distribution Width 12.6 % (11.5-14.0); White Blood Count 8.8 K/mm3 (4.0-10.5)
[2020-07-16 13:55] LABS: Appearance CLEAR (CLEAR); Bilirubin NEGATIVE (NEGATIVE); Blood NEGATIVE Ery/ul (0-5); Glucose NEGATIVE (NEGATIVE); Ketones NEGATIVE (NEGATIVE); Leukocyte Esterase NEGATIVE (NEGATIVE); Nitrite NEGATIVE (NEGATIVE); Protein,Urine Dip NEGATIVE (Negative); Specific Gravity 1.006 (1.005-1.025); Urobilinogen NEGATIVE mg/dL (0-1)
[2020-07-16] MEDS ORDERED: Zofran 4 MG/2 ML VIAL ONE (14:29)
--- NOTE | 2020-07-16 14:36 | XRAY ---
Indication: Diffuse abdominal pain. Bloating after eating. Constipation. Multiple contiguous images obtained through the abdomen and pelvis without contrast. Comparison: March 12, 2020. Lung bases demonstrate stable 9 mm right middle lobe benign noncalcified nodule. No infiltrate or effusion. Heart is not enlarged. Noncontrasted stomach and bowel loops remain nonobstructed. Stable small descending duodenal diverticulum, normal appendix, and minimal sigmoid diverticulosis. Little scattered colonic fecal debris. No free fluid/air. Again hysterectomy. Remaining liver, gallbladder, pancreas, spleen, adrenal glands, kidneys, ureters, bladder, and aorta appear unremarkable for noncontrast exam. Osseous structures intact. No ventral or inguinal hernias. Impression: 1. Stable duodenal diverticulum, sigmoid diverticulosis, and benign right middle lobe noncalcified nodule. 2. Remaining CT abdomen/pelvis without contrast exam is again negative.
--- NOTE | 2020-07-16 14:39 | ERPHSYRPT ---
- History of Present Illness Time Seen by Provider: 07/16/20 13:15 Historian: patient Exam Limitations: no limitations Patient Subjective Stated Complaint: Abdominal pain Triage Nursing Assessment: Patient ambulated back to ED and transferred self to bed. Patient A+O X3. Patient's skin pink, warm and dry. Patient complains of left sided abdominal pain constant aching, intermittent sharp pain 9/10 for the past 2-3 days. Patient states she has been constipated since May, but is able to pass gas. Abdomen soft and round X 4. Patient complains of nausea, but denies vomiting. Physician History: This is a 45-year-old obese white female who has significant anxiety issues and chronic, intermittent constipation. Patient states that she has been having worsening left upper quadrant abdominal pain for the last 2 to 3 days. She did discuss these issues with her primary care office. She has had nausea but no vomiting. She is able to pass flatus. She is also able to belch per her report. Patient has had similar episodes in the past. In February 2020 she had similar symptoms but her pain was more on the right side. There is a stable descending duodenal diverticulum present on the CAT scan of the abdomen and pelvis. Patient has a history of gastroesophageal reflux disease, fibromyalgia, anxiety and depression. She has had a hysterectomy and a in the past. She also stated that she did have a few episodes of substernal, nonradiating, sharp chest pain that resolved on its own in the last 2 to 3 days. Patient still has her appendix in place as well as her gallbladder. She denies any tr auma to her abdomen. She has never seen a cook candy. Her primary care physician is Dr. Ring. Timing/Duration: day(s) (2 to 3 days) Activities at Onset: none Quality: sharpness, stabbing Abdominal Pain Onset Location: [facility] Pain Radiation: no radiation Severity of Pain-Max: moderate Severity of Pain-Current: moderate Modifying Factors: Improves With: nothing Associated Symptoms: chest pain, nausea, No diarrhea, No neck pain, No vomiting Previous symptoms: no prior history, recently seen Allergies/Adverse Reactions: haloperidol [From Haldol] Allergy (Mild, Verified 07/16/20 13:00) "CAN'T MOVE AT ALL FOR 3 DAYS" Home Medications: PANTOPRAZOLE 40 mg Tablet [Protonix 40MG Tablet] 40 mg PO QAM 06/23/18 [History] Alprazolam 1 mg [Xanax 1 mg] 1 mg PO TID PRN 03/13/19 [History] Hx Tetanus, Diphtheria Vaccination/Date Given: Yes Hx Influenza Vaccination/Date Given: No Hx Pneumococcal Vaccination/Date Given: No Immunizations Up to Date: Yes Travel Risk - International Travel Have you traveled outside of the country in past 3 weeks: No - Coronavirus Screening Are you exhibiting any of the following symptoms?: No Close contact with a COVID-19 positive Pt in past 14-21 Days: No - Review of Systems Constitutional: No Symptoms Eyes: No Symptoms Ears, Nose, & Throat: No Symptoms Respiratory: No Symptoms Cardiac: Chest Pain (A couple times in the last 2 to 3 days. She has no chest pain today) Abdominal/Gastrointestinal: Abdominal Pain (Left upper quadrant), Nausea Genitourinary Symptoms: No Symptoms Musculoskeletal: No Symptoms Skin: No Symptoms Neurological: No Symptoms Psychological: No Symptoms Endocrine: No Symptoms Hematologic/Lymphatic: No Symptoms Immunological/Allergic: No Symptoms All Other Systems: Reviewed and Negative - Past Medical History Pertinent Past Medical History: Yes Neurological History: Migraines ENT History: No Pertinent History Cardiac History: No Pertinent History Respiratory History: Asthma Endocrine Medical History: Hypoglycemia Musculoskeletal History: Fibromyalgia GI Medical History: GERD History: No Pertinent History Psycho-Social History: Anxiety, Depression Female Reproductive Disorders: Fibroids Other Medical History: FIBROMYALGIA, ANXIETY DISORDER. metabolic X - Past Surgical History Past Surgical History: Yes Neuro Surgical History: No Pertinent History Cardiac: No Pertinent History Respiratory: No Pertinent History Gastrointestinal: No Pertinent History Genitourinary: No Pertinent History Musculoskeletal: No Pertinent History Female Surgical History: Hysterectomy, Section Other Surgical History: tonsillectomy - leep - d and c - Social History Smoking Status: Current every day smoker How long have you smoked: 4 years Exposure to second hand smoke: Yes Alcohol Use: None Drug Use: none Patient Lives Alone: No Significant Family History: hypertension - Female History Hx Last Menstrual Period: hysterectomy Hx Now: No - Nursing Vital Signs Nursing Vital Signs: Initial Vital Signs Temperature 97.9 F 07/16/20 13:01 Pulse Rate 81 07/16/20 13:01 Respiratory Rate 18 07/16/20 13:01 Blood Pressure 151/91 07/16/20 13:01 O2 Sat by Pulse Oximetry 100 07/16/20 13:01 Pain Scale Pain Intensity 4 - Physical Exam General Appearance: no apparent distress, alert, anxiety, obese Eye Exam: PERRL/EOMI, eyes nml inspection Ears, Nose, Throat Exam: normal ENT inspection, moist mucous membranes Neck Exam: normal inspection, non-tender, supple, full range of motion Respiratory Exam: normal breath sounds, lungs clear, airway intact, No chest tenderness, No respiratory distress Cardiovascular Exam: regular rate/rhythm, normal heart sounds, normal peripheral pulses Gastrointestinal/Abdomen Exam: soft, normal bowel sounds, tenderness (Left upper quadrant), guarding (Left upper quadrant), No rebound Pelvic Exam: not done Rectal Exam: not done Back Exam: normal inspection, normal range of motion, No CVA tenderness, No vertebral tenderness Extremity Exam: normal inspection, normal range of motion, pelvis stable Neurologic Exam: alert, oriented x 3, cooperative, 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 There is no significant changes. On today's EKG there are no acute ischemic changes noted.) Ordered Tests: Active Orders 24 hr Category Date Time Status EKG-ER Only STAT Care 07/16/20 14:03 Active IV Insertion STAT Care 07/16/20 13:38 Active ABDOMEN AND PELVIS W/0 CONTRAS [CT] Stat Exams 07/16/20 13:39 Completed AMYLASE Stat Lab 07/16/20 13:30 Completed CBC W DIFF Stat Lab 07/16/20 13:30 Completed CMP Stat Lab 07/16/20 13:30 Completed LIPASE Stat Lab 07/16/20 13:30 Completed Lactic Acid Stat Lab 07/16/20 13:48 Completed TROPONIN Q3H Lab 07/16/20 14:50 Completed TROPONIN Q3H Lab 07/16/20 17:15 Ordered TROPONIN Q3H Lab 07/16/20 20:15 Ordered TROPONIN Q3H Lab 07/16/20 23:15 Ordered TROPONIN Q3H Lab 07/17/20 02:15 Ordered UA W/RFX UR CULTURE Stat Lab 07/16/20 13:30 Completed Medication Summary Discontinued Medications Generic Name Dose Route Start Last Admin Trade Name [place] PRN Reason Stop Dose Admin Ondansetron HCl 4 mg 07/16/20 13:38 07/16/20 14:30 Zofran 4 Mg/2 Ml Vial IV 07/16/20 13:39 4 mg STAT ONE Administration Ondansetron HCl Confirm 07/16/20 14:29 Zofran 4 Mg/2 Ml Vial Administered 07/16/20 14:30 Dose 4 mg .ROUTE .STK-MED ONE Lab/Rad Data: Laboratory Result Diagrams 07/16/20 13:30 07/16/20 13:30 Laboratory Results 07/16/20 07/16/20 07/16/20 Range/Units 14:50 13:48 13:30 WBC (4.0-10.5) K/mm3 RBC (4.1-5.4) M/mm3 Hgb (12.0-16.0) gm/dl Hct (35-47) % MCV (78-100) fl MCH (26-32) pg MCHC (32-36) g/dl RDW (11.5-14.0) % Plt Count (150-450) K/mm3 MPV (7.5-11.0) fl Gran % (36.0-66.0) % Eos # (Auto) (0-0.5) Absolute Lymphs (auto) (1.0-4.6) Absolute Monos (auto) (0.0-1.3) Lymphocytes % (24.0-44.0) % Monocytes % (0.0-12.0) % Eosinophils % (0.00-5.0) % Basophils % (0.0-0.4) % Absolute Granulocytes (1.4-6.9) Basophils # (0-0.4) Sodium (137-145) mmol/L Potassium (3.5-5.1) mmol/L Chloride (98-107) mmol/L Carbon Dioxide (22-30) mmol/L Anion Gap (5-15) MEQ/L BUN (7-17) mg/dL Creatinine (0.52-1.04) mg/dL Estimated GFR ML/MIN Glucose (74-106) mg/dL Lactic Acid 2.4 H (0.4-2.0) Calcium (8.4-10.2) mg/dL Total Bilirubin (0.2-1.3) mg/dL AST (14-36) U/L ALT (0-35) U/L Alkaline Phosphatase (38-126) U/L Troponin I < 0.012 (0.000-0.034) ng/mL Serum Total Protein (6.3-8.2) g/dL Albumin (3.5-5.0) g/dL Amylase (30-110) U/L Lipase (23-300) U/L Urine Color YELLOW (YELLOW) Urine Appearance CLEAR (CLEAR) Urine pH 5.0 (5-6) Ur Specific [place] 1.006 (1.005-1.025) Urine Protein NEGATIVE (Negative) Urine Ketones NEGATIVE (NEGATIVE) Urine Blood NEGATIVE (0-5) Blake/ul Urine Nitrite NEGATIVE (NEGATIVE) Urine Bilirubin NEGATIVE (NEGATIVE) Urine Urobilinogen NEGATIVE (0-1) mg/dL Ur Leukocyte Esterase NEGATIVE (NEGATIVE) Urine WBC (Auto) NONE (0-5) /HPF Urine RBC (Auto) NONE (0-2) /HPF U Epithel Cells (Auto) NONE (FEW) /HPF Urine Bacteria (Auto) NONE (NEGATIVE) /HPF Urine Culture Reflexed NO (NO) Urine Glucose NEGATIVE (NEGATIVE) mg/dL 07/16/20 07/16/20 Range/Units 13:30 13:30 WBC 8.8 (4.0-10.5) K/mm3 RBC 4.58 (4.1-5.4) M/mm3 Hgb 14.3 (12.0-16.0) gm/dl Hct 43.2 (35-47) % MCV 94.3 (78-100) fl MCH 31.2 (26-32) pg MCHC 33.1 (32-36) g/dl RDW 12.6 (11.5-14.0) % Plt Count 315 (150-450) K/mm3 MPV 9.5 (7.5-11.0) fl Gran % 69.8 H (36.0-66.0) % Eos # (Auto) 0.08 (0-0.5) Absolute Lymphs (auto) 1.91 (1.0-4.6) Absolute Monos (auto) 0.64 (0.0-1.3) Lymphocytes % 21.8 L (24.0-44.0) % Monocytes % 7.3 (0.0-12.0) % Eosinophils % 0.9 (0.00-5.0) % Basophils % 0.2 (0.0-0.4) % Absolute Granulocytes 6.12 (1.4-6.9) Basophils # 0.02 (0-0.4) Sodium 134 L (137-145) mmol/L Potassium 4.1 (3.5-5.1) mmol/L Chloride 100 (98-107) mmol/L Carbon Dioxide 26 (22-30) mmol/L Anion Gap 12.8 (5-15) MEQ/L BUN 10 (7-17) mg/dL Creatinine 0.72 (0.52-1.04) mg/dL Estimated GFR > 60.0 ML/MIN Glucose 141 H (74-106) mg/dL Lactic Acid (0.4-2.0) Calcium 9.7 (8.4-10.2) mg/dL Total Bilirubin 0.80 (0.2-1.3) mg/dL AST 23 (14-36) U/L ALT 22 (0-35) U/L Alkaline Phosphatase 81 (38-126) U/L Troponin I (0.000-0.034) ng/mL Serum Total Protein 8.0 (6.3-8.2) g/dL Albumin 4.7 (3.5-5.0) g/dL Amylase 66 (30-110) U/L Lipase 153 (23-300) U/L Urine Color (YELLOW) Urine Appearance (CLEAR) Urine pH (5-6) Ur Specific [place] (1.005-1.025) Urine Protein (Negative) Urine Ketones (NEGATIVE) Urine Blood (0-5) Blake/ul Urine Nitrite (NEGATIVE) Urine Bilirubin (NEGATIVE) Urine Urobilinogen (0-1) mg/dL Ur Leukocyte Esterase (NEGATIVE) Urine WBC (Auto) (0-5) /HPF Urine RBC (Auto) (0-2) /HPF U Epithel Cells (Auto) (FEW) /HPF Urine Bacteria (Auto) (NEGATIVE) /HPF Urine Culture Reflexed (NO) Urine Glucose (NEGATIVE) mg/dL - Progress Progress: unchanged, pain not gone completely, re-examined Progress Note: 07/16/20 15:04 CAT scan of the abdomen pelvis without intravenous contrast shows no acute intra-abdominal or intrapelvic process. Same stable descending duodenal diverticulum is present. Counseled pt/family regarding: lab results, diagnosis, need for follow-up, rad results - Departure Departure Disposition: Home Clinical Impression: Recurrent abdominal pain Condition: Stable Critical Care Time: No Referrals: ANDREA RING [Primary Care Provider] - Additional Instructions: Diet as tolerated. Use Tylenol and ibuprofen for pain control. Follow-up with your primary care physician for referral to a cook candy if indicated.
[2020-07-16 14:56] LABS: ALBUMIN 4.7 g/dL (3.5-5.0); ALKALINE PHOSPHATASE 81 U/L (38-126); AMYLASE 66 U/L (30-110); ANION GAP 12.8 MEQ/L (5-15); BLOOD UREA NITROGEN 10 mg/dL (7-17); CHLORIDE 100 mmol/L (98-107); Calcium 9.7 mg/dL (8.4-10.2); Carbon Dioxide 26 mmol/L (22-30); Creatinine 1 0.72 mg/dL (0.52-1.04); EST GLOMERULAR FILTRATION RATE > 60.0 ML/MIN; Glucose 141 mg/dL (74-106); LIPASE 153 U/L (23-300); Potassium 4.1 mmol/L (3.5-5.1); SGOT/AST 23 U/L (14-36); SGPT/ALT 22 U/L (0-35); SODIUM 134 mmol/L (137-145)
[2020-07-16 15:15] VITALS: BP 146/84; PULSE 76
[2020-07-16 15:37] VITALS: O2SAT 100
== END 2020-07-16 16:15 | disposition home or self-care (01) ==
LOC: ED 12:48
DX: R10.12 Left upper quadrant pain (principal); R11.0 Nausea; R07.9 Chest pain, unspecified; F17.200 Nicotine dependence, unspecified, uncomplicated
CPT/HCPCS: 36000; 36415; 74176; 80053; 81001; 82150; 83605; 83690; 84484; 85025; 93005; 96374; 99284; J2405

== ENCOUNTER 2020-10-16 11:44 | Emergency (ER) | payer OTHER ==
[2020-10-16 11:59] VITALS: O2SAT 98
[2020-10-16] MEDS ORDERED: Pepcid 20 MG PO ONE (12:14)
[2020-10-16] MEDS ORDERED: BENADRYL 50 MG/ML IM ONE (12:14)
[2020-10-16] MEDS ORDERED: solu-MEDROL 125 MG IM ONE (12:14)
[2020-10-16] MEDS ORDERED: BENADRYL 50 MG/ML ONE (12:27)
[2020-10-16] MEDS ORDERED: Pepcid 20 MG ONE (12:27)
[2020-10-16] MEDS ORDERED: solu-MEDROL 125 MG ONE (12:28)
--- NOTE | 2020-10-16 13:23 | ERPHSYRPT ---
- History of Present Illness Time Seen by Provider: 10/16/20 11:48 Source: patient Exam Limitations: no limitations Patient Subjective Stated Complaint: Patient complaints of no sleeping and itching. Triage Nursing Assessment: Patient to ED with complaints of not being able to sleep and itching. Patient very anxious. Reports starting new medications and symptoms started one day after. No respiratory distress noted. Allergies/Adverse Reactions: haloperidol [From Haldol] Allergy (Mild, Verified 10/16/20 11:59) "CAN'T MOVE AT ALL FOR 3 DAYS" Home Medications: PANTOPRAZOLE 40 mg Tablet [Protonix 40MG Tablet] 40 mg PO QAM 06/23/18 [History] ALPRAZolam 1 MG [Xanax 1 mg] 1 mg PO TID PRN 03/13/19 [History] Albuterol 8 gm Mdi Hfa [Ventolin Hfa MDI] 0 gm IH Q4-6HPRN PRN 10/16/20 [History] Hx Tetanus, Diphtheria Vaccination/Date Given: Yes Hx Influenza Vaccination/Date Given: No Hx Pneumococcal Vaccination/Date Given: No Travel Risk - International Travel Have you traveled outside of the country in past 3 weeks: No - Coronavirus Screening Are you exhibiting any of the following symptoms?: No Close contact with a COVID-19 positive Pt in past 14-21 Days: No - Vaccine Status Have you recieved a Covid-19 vaccination: No - Past Medical History Pertinent Past Medical History: Yes Neurological History: Migraines ENT History: No Pertinent History Cardiac History: No Pertinent History Respiratory History: Asthma Endocrine Medical History: Hypoglycemia Musculoskeletal History: Fibromyalgia GI Medical History: GERD History: No Pertinent History Psycho-Social History: Anxiety, Depression Female Reproductive Disorders: Fibroids Other Medical History: ANXIETY, GERD, HIATAL HERNIA. SX HX: HYSTERECTOMY 2018, C-SECTIONS. RECENTLY QUIT SMOKING (X 1 WEEK),. VITAMIN D DEFICIENCY, - Past Surgical History Past Surgical History: Yes Neuro Surgical History: No Pertinent History Cardiac: No Pertinent History Respiratory: No Pertinent History Gastrointestinal: No Pertinent History Genitourinary: No Pertinent History Musculoskeletal: No Pertinent History Female Surgical History: Hysterectomy, Section Other Surgical History: tonsillectomy - leep - d and c - Social History Smoking Status: Former smoker How long have you smoked: 4 years Exposure to second hand smoke: Yes Alcohol Use: None Drug Use: none Patient Lives Alone: No Significant Family History: hypertension - Female History Hx Now: No (hysterectomy 2018) - Nursing Vital Signs Nursing Vital Signs: Initial Vital Signs Temperature 98.2 F 10/16/20 11:45 Pulse Rate 78 10/16/20 11:45 Respiratory Rate 22 10/16/20 11:45 Blood Pressure 144/86 10/16/20 11:45 O2 Sat by Pulse Oximetry 98 10/16/20 11:45 Pain Scale Pain Intensity 0 - Physical Exam SpO2: 98 Ordered Tests: Medication Summary Discontinued Medications Generic Name Dose Route Start Last Admin Trade Name Freq PRN Reason Stop Dose Admin Diphenhydramine HCl 50 mg 10/16/20 12:14 10/16/20 12:29 Benadryl 50 Mg/Ml IM 10/16/20 12:15 50 mg STAT ONE Administration Diphenhydramine HCl Confirm 10/16/20 12:27 Benadryl 50 Mg/Ml Administered 10/16/20 12:28 Dose 50 mg .ROUTE .STK-MED ONE Famotidine 40 mg 10/16/20 12:14 10/16/20 12:30 Pepcid 20 Mg PO 10/16/20 12:15 40 mg STAT ONE Administration Famotidine Confirm 10/16/20 12:27 Pepcid 20 Mg Administered 10/16/20 12:28 Dose 40 mg .ROUTE .STK-MED ONE Methylprednisolone Sodium Succinate 125 mg 10/16/20 12:14 10/16/20 12:30 Solu-Medrol 125 Mg IM 10/16/20 12:15 125 mg STAT ONE Administration Methylprednisolone Sodium Succinate Confirm 10/16/20 12:28 Solu-Medrol 125 Mg Administered 10/16/20 12:29 Dose 125 mg .ROUTE .STK-MED ONE - Progress Progress: improved Progress Note: 10/16/20 13:20 LMLM, - Departure Departure Disposition: Home Clinical Impression: Allergic reaction caused by a drug Qualifiers: Encounter type: initial encounter Qualified Code(s): T78.40XA - Allergy, unspecified, initial encounter Condition: Stable Critical Care Time: No Referrals: RORO HORVATH MD [Primary Care Provider] - (1-2 days for reevaluation) Instructions: Adverse Drug Reactions, Adult (DC) Additional Instructions: Stop taking new medications. Continue with your old medications. Follow-up with primary care for reevaluation next couple of days. Return to ER for worsening itching or if develop shortness of breath/palpitation/throat closing sensations etc. Prescriptions: Diphenhydramine HCl 25 mg [Benadryl 25 mg Capsule] 25 mg PO Q4H PRN PRN #20 capsule PRN Reason: Allergies Prednisone 20 mg [Deltasone 20 mg] 60 mg PO DAILY 5 Days #15 tablet Famotidine 20 mg [Pepcid 20 MG] 20 mg PO BID #10 tablet
[2020-10-16 13:45] VITALS: BP 130/98; PULSE 82
== END 2020-10-16 13:45 | disposition home or self-care (01) ==
LOC: ED 11:44
DX: T78.40XA Allergy, unspecified, initial encounter (principal)
CPT/HCPCS: 96372; 99284; J1200; J2930; A9270-GY

== ENCOUNTER 2020-12-17 16:50 | Emergency (ER) | payer OTHER ==
[2020-12-17] MEDS ORDERED: MORPHINE SULFATE 2 MG INJ IV ONE (17:23)
[2020-12-17] MEDS ORDERED: Zofran 4 MG/2 ML VIAL IV ONE (17:23)
[2020-12-17] MEDS ORDERED: Sodium Chloride 0.9% 1000 ML 1,000 ML IV STA (17:23)
[2020-12-17] MEDS ORDERED: GI COCKTAIL 45 ML (Maalox/Lidocaine) PO ONE (17:27)
[2020-12-17 17:40] LABS: Absolute Neutrophil Ct (ANC) 5.27 (1.4-6.9); BASOPHIL % 0.2 % (0.0-0.4); Basophil (Absolute #) 0.02 (0-0.4); Eosinophil % 0.7 % (0.00-5.0); Eosinophil (Absolute #) 0.06 (0-0.5); Hematocrit 38.3 % (35-47); Hemoglobin 12.5 gm/dl (12.0-16.0); Lymphocyte (Absolute #) 2.14 (1.0-4.6); Lymphocytes % 25.6 % (24.0-44.0); Mean Cell Volume 95.8 fl (78-100); Mean Corpuscular Hemoglobin 31.3 pg (26-32); Mean Corpuscular Hgb Concent. 32.6 g/dl (32-36); Mean Platelet Volume 9.2 fl (7.5-11.0); Monocyte (Absolute #) 0.88 (0.0-1.3); Monocytes % 10.5 % (0.0-12.0); Platelet Count 260 K/mm3 (150-450); Red Cell Distribution Width 13.2 % (11.5-14.0); White Blood Count 8.4 K/mm3 (4.0-10.5)
[2020-12-17 17:57] LABS: ALBUMIN 4.3 g/dL (3.5-5.0); ALKALINE PHOSPHATASE 68 U/L (38-126); ANION GAP 10.8 MEQ/L (5-15); BLOOD UREA NITROGEN 15 mg/dL (7-17); CHLORIDE 98 mmol/L (98-107); Calcium 9.4 mg/dL (8.4-10.2); Carbon Dioxide 30 mmol/L (22-30); EST GLOMERULAR FILTRATION RATE > 60.0 ML/MIN; Glucose 88 mg/dL (74-106); LIPASE 112 U/L (23-300); Potassium 3.9 mmol/L (3.5-5.1); SGOT/AST 20 U/L (14-36); SGPT/ALT 21 U/L (0-35); SODIUM 136 mmol/L (137-145); Total Protein 6.6 g/dL (6.3-8.2)
[2020-12-17] MEDS ORDERED: Zofran 4 MG/2 ML VIAL ONE (18:04)
[2020-12-17] MEDS ORDERED: Sodium Chloride 0.9% 1000 ML 1,000 ML ONE (18:04)
[2020-12-17] MEDS ORDERED: XANAX 1 MG PO ONE (18:30)
[2020-12-17 19:54] VITALS: O2SAT 96
--- NOTE | 2020-12-17 20:19 | ERPHSYRPT ---
- History of Present Illness Time Seen by Provider: 12/17/20 17:20 Historian: patient Exam Limitations: no limitations Patient Subjective Stated Complaint: LUQ pain Triage Nursing Assessment: pt to ED c/o LUQ pain that worsens significantly after eating or drinking. rates 9/10 now, pt tearful and guarding area. denies NVD. no diff with bowels or urinary. Physician History: Patient is a 45-year-old female presents to emergency department for evaluation of epigastric pain. Pain started today. Pain described as an ache that is constant. Pain tends to radiate towards left upper quadrant. No trauma no fever. Pain rated 9 out of 10. Patient states pain is worse after eating. No chest pain. No nausea vomiting or diaphoresis. No shortness of breath. Patient states she is extremely stressed out because of home/job related issues. Patient voices no other complaints or concerns at this time. Timing/Duration: today Activities at Onset: none Quality: aching Abdominal Pain Onset Location: LLQ, epigastric Pain Radiation: no radiation Severity of Pain-Max: moderate Severity of Pain-Current: mild Modifying Factors: Improves With: eating Associated Symptoms: denies symptoms Previous symptoms: no prior history Allergies/Adverse Reactions: haloperidol [From Haldol] Allergy (Mild, Verified 12/17/20 17:13) "CAN'T MOVE AT ALL FOR 3 DAYS" Home Medications: PANTOPRAZOLE 40 mg Tablet [Protonix 40MG Tablet] 40 mg PO QAM 06/23/18 [History] ALPRAZolam 1 MG [Xanax 1 mg] 1 mg PO TID PRN 03/13/19 [History] Albuterol 8 gm Mdi Hfa [Ventolin Hfa MDI] 0 gm IH Q4-6HPRN PRN 10/16/20 [History] Hx Tetanus, Diphtheria Vaccination/Date Given: No Hx Influenza Vaccination/Date Given: No Hx Pneumococcal Vaccination/Date Given: No Immunizations Up to Date: No Travel Risk - International Travel Have you traveled outside of the country in past 3 weeks: No - Coronavirus Screening Are you exhibiting any of the following symptoms?: No Close contact with a COVID-19 positive Pt in past 14-21 Days: No - Vaccine Status Have you recieved a Covid-19 vaccination: No - Review of Systems Constitutional: No Symptoms, No Fever, No Chills Eyes: No Symptoms Ears, Nose, & Throat: No Symptoms Respiratory: No Symptoms, No Cough, No Dyspnea Cardiac: No Symptoms, No Chest Pain, No Edema, No Syncope Abdominal/Gastrointestinal: No Symptoms, No Abdominal Pain, No Nausea, No Vomit ing, No Diarrhea Genitourinary Symptoms: No Symptoms, No Dysuria Musculoskeletal: No Symptoms, No Back Pain, No Neck Pain Skin: No Symptoms, No Rash Neurological: No Symptoms, No Dizziness, No Focal Weakness, No Sensory Changes Psychological: No Symptoms Endocrine: No Symptoms Hematologic/Lymphatic: No Symptoms Immunological/Allergic: No Symptoms All Other Systems: Reviewed and Negative - Past Medical History Pertinent Past Medical History: Yes Neurological History: Migraines ENT History: No Pertinent History Cardiac History: No Pertinent History Respiratory History: Asthma Endocrine Medical History: Hypoglycemia Musculoskeletal History: Fibromyalgia GI Medical History: GERD History: No Pertinent History Psycho-Social History: Anxiety, Depression Female Reproductive Disorders: No Pertinent History Other Medical History: ANXIETY, GERD, HIATAL HERNIA. SX HX: HYSTERECTOMY 2018, C-SECTIONS. VITAMIN D DEFICIENCY, - Past Surgical History Past Surgical History: Yes Neuro Surgical History: No Pertinent History Cardiac: No Pertinent History Respiratory: No Pertinent History Gastrointestinal: No Pertinent History Genitourinary: No Pertinent History Musculoskeletal: No Pertinent History Female Surgical History: Hysterectomy, Section Other Surgical History: tonsillectomy - leep - d and c - Social History Smoking Status: Current every day smoker How long have you smoked: 4 years Exposure to second hand smoke: Yes Alcohol Use: None Drug Use: none Patient Lives Alone: No Significant Family History: hypertension - Female History Hx Now: No (hysterectomy) - Nursing Vital Signs Nursing Vital Signs: Initial Vital Signs Temperature 97.8 F 12/17/20 17:04 Pulse Rate 75 12/17/20 17:04 Respiratory Rate 18 12/17/20 17:04 Blood Pressure 146/85 12/17/20 17:04 O2 Sat by Pulse Oximetry 99 12/17/20 17:04 Pain Scale Pain Intensity 0 - Physical Exam General Appearance: no apparent distress, alert Eye Exam: PERRL/EOMI, eyes nml inspection Ears, Nose, Throat Exam: normal ENT inspection, pharynx normal, moist mucous membranes Neck Exam: normal inspection, non-tender, supple, full range of motion Respiratory Exam: normal breath sounds, lungs clear, No respiratory distress Cardiovascular Exam: regular rate/rhythm, normal heart sounds Gastrointestinal/Abdomen Exam: soft, tenderness, other (Epigastric tenderness to palpation. Overlying soft tissue intact.), No mass Back Exam: normal inspection, normal range of motion, No CVA tenderness, No vertebral tenderness Extremity Exam: normal inspection, normal range of motion, pelvis stable Neurologic Exam: alert, oriented x 3, cooperative, normal mood/affect, nml cerebellar function, sensation nml, No motor deficits Skin Exam: normal color, warm, dry, jaundice SpO2 Interpretation: normal SpO2: 96 O2 Delivery: Room Air - Course Nursing assessment & vital signs reviewed: Yes EKG Interpreted by Me: RATE (65), Sinus Rhythm, NORMAL AXIS, NORMAL INTERVALS - CT Exams Abdomen/Pelvis CT Interpretation: Tele-radiologist Report (Compared to 07/16/2020, stable duodenal diverticulum sigmoid diverticulosis and benign right middle lobe noncalcified nodule.) Ordered Tests: Active Orders 24 hr Category Date Time Status EKG-ER Only STAT Care 12/17/20 20:34 Active IV Insertion STAT Care 12/17/20 17:23 Active ABDOMEN AND PELVIS W CONTRAST [CT] Stat Exams 12/17/20 17:23 Taken CBC W DIFF Stat Lab 12/17/20 17:35 Completed CMP Stat Lab 12/17/20 17:35 Completed LIPASE Stat Lab 12/17/20 17:35 Completed TROPONIN Q3H Lab 12/17/20 17:35 Completed TROPONIN Q3H Lab 12/17/20 20:11 Received TROPONIN Q3H Lab 12/17/20 23:30 Ordered TROPONIN Q3H Lab 12/18/20 02:30 Ordered TROPONIN Q3H Lab 12/18/20 05:30 Ordered Medication Summary Discontinued Medications Generic Name Dose Route Start Last Admin Trade Name Freq PRN Reason Stop Dose Admin Alprazolam 1 mg 12/17/20 18:30 12/17/20 18:47 Xanax 1 Mg PO 12/17/20 18:31 1 mg STAT ONE Administration Sodium Chloride 1,000 mls @ 999 mls/hr 12/17/20 17:23 12/17/20 18:07 Sodium Chloride 0.9% 1000 Ml IV 12/17/20 18:23 999 mls/hr .Q1H1M STA Administration Sodium Chloride Confirm 12/17/20 18:04 Sodium Chloride 0.9% 1000 Ml Administered 12/17/20 18:05 Dose 1,000 mls @ ud .ROUTE .STK-MED ONE Magnesium Hydroxide 45 ml 12/17/20 17:27 Gi Cocktail 45 Ml (Maalox/Lidocaine) PO 12/17/20 17:28 STAT ONE Morphine Sulfate 2 mg 12/17/20 17:23 Morphine Sulfate 2 Mg Inj IV 12/17/20 17:24 STAT ONE Ondansetron HCl 4 mg 12/17/20 17:23 12/17/20 18:07 Zofran 4 Mg/2 Ml Vial IV 12/17/20 17:24 4 mg STAT ONE Administration Ondansetron HCl Confirm 12/17/20 18:04 Zofran 4 Mg/2 Ml Vial Administered 12/17/20 18:05 Dose 4 mg .ROUTE .STK-MED ONE Lab/Rad Data: Laboratory Result Diagrams 12/17/20 17:35 12/17/20 17:35 Laboratory Results 12/17/20 12/17/20 12/17/20 Range/Units 17:35 17:35 17:35 WBC 8.4 (4.0-10.5) K/mm3 RBC 4.00 L (4.1-5.4) M/mm3 Hgb 12.5 (12.0-16.0) gm/dl Hct 38.3 (35-47) % MCV 95.8 (78-100) fl MCH 31.3 (26-32) pg MCHC 32.6 (32-36) g/dl RDW 13.2 (11.5-14.0) % Plt Count 260 (150-450) K/mm3 MPV 9.2 (7.5-11.0) fl Gran % 63.0 (36.0-66.0) % Eos # (Auto) 0.06 (0-0.5) Absolute Lymphs (auto) 2.14 (1.0-4.6) Absolute Monos (auto) 0.88 (0.0-1.3) Lymphocytes % 25.6 (24.0-44.0) % Monocytes % 10.5 (0.0-12.0) % Eosinophils % 0.7 (0.00-5.0) % Basophils % 0.2 (0.0-0.4) % Absolute Granulocytes 5.27 (1.4-6.9) Basophils # 0.02 (0-0.4) Sodium 136 L (137-145) mmol/L Potassium 3.9 (3.5-5.1) mmol/L Chloride 98 (98-107) mmol/L Carbon Dioxide 30 (22-30) mmol/L Anion Gap 10.8 (5-15) MEQ/L BUN 15 (7-17) mg/dL Creatinine 0.70 (0.52-1.04) mg/dL Estimated GFR > 60.0 ML/MIN Glucose 88 (74-106) mg/dL Calcium 9.4 (8.4-10.2) mg/dL Total Bilirubin 0.60 (0.2-1.3) mg/dL AST 20 (14-36) U/L ALT 21 (0-35) U/L Alkaline Phosphatase 68 (38-126) U/L Troponin I < 0.012 (0.000-0.034) ng/mL Serum Total Protein 6.6 (6.3-8.2) g/dL Albumin 4.3 (3.5-5.0) g/dL Lipase 112 (23-300) U/L - Progress Progress: unchanged Progress Note: Patient refused for morphine as she states she will be driving. Patient refused her GI cocktail as well. However patient agreed to the benzodiazepine for anxiety. Laboratory work-up at this point essentially nonremarkable. Patient states she takes large amounts of ibuprofen. She has been doing this for treatment of chronic pain including occasional migraine headaches. Patient advised to discontinue ibuprofen. CT does not reveal any acute abnormalities however patient may require upper GI for possible ulcer. Patient is currently on pantoprazole daily. Patient requesting discharge. Patient states she will follow-up with her primary care doctor in the morning for reevaluation. 12/17/20 20:43 Counseled pt/family regarding: lab results, diagnosis, need for follow-up, rad results - Departure Departure Disposition: Home Clinical Impression: Epigastric pain, Duodenal diverticulum, Sigmoid diverticulosis, Noncalcified lung nodule Condition: Stable Critical Care Time: No Referrals: RORO HORVATH MD [Primary Care Provider] - Additional Instructions: Discharge/Care Plan KEVYNSETH MOORE was seen on 12/17/20 in the Emergency Room. The patient was counseled regarding Diagnosis,Lab results, Imaging studies, need for follow up and when to return to the Emergency Room. Prescriptions given: Discharge Note I have spoken with the patient and/or caregivers. I have explained the patient's condition, diagnosis and treatment plan based on the information available to me at this time. I have answered the patient's and/or caregiver's questions and addressed any concerns. The patient and/or caregivers have as good understanding of the patient's diagnosis, condition and treatment plan as can be expected at this point. The vital signs have been stable. The patient's condition is stable and appropriate for discharge from the emergency department. The patient will pursue further outpatient evaluation with the primary care physician or other designated or consulting physician as outlined in the discharge instructions. The patient and/or caregivers are agreeable to this plan of care and follow-up instructions have been explained in detail. The patient and/or caregivers have received these instruction. The patient/and or caregivers are aware that any significant change in condition or worsening of symptoms should prompt an immediate return to this or the closest emergency department or call 911.
[2020-12-17 20:25] VITALS: BP 133/80; PULSE 74
--- NOTE | 2020-12-19 13:37 | XRAY ---
Exam: CT of the abdomen and pelvis with IV contrast from 12/17/2020. CTDI: 19.34 mGy Comparison: CT of the abdomen and pelvis without IV contrast from 07/16/2020. Indication: 45-year-old female with upper abdominal pain for 2 days; has history of prior hysterectomy. Technique: Post-IV contrast axial images were obtained through the abdomen and pelvis during automated injection of 80 ML's of Isovue 370 IV contrast material. Reconstructed coronal and sagittal images were created and reviewed. No CT oral contrast was given. Findings: The lung bases reveal a stable 7 mm x 9 mm low-attenuation, noncalcified nodule at the lateral right lung base just anterior to the midaxillary line representing no change from 06/15/2019 or from 08/29/2018. This likely represents a benign process such as a small pulmonary hamartoma. The liver, spleen, pancreas, adrenal glands, and kidneys appear unremarkable. The gallbladder appears of unremarkable size and reveals no dense calcifications within it. The kidneys function on delayed images. Incidentally, there appear to be 2 proximal right side ureters which probably joining within the lower abdomen. The abdominal aorta appears of normal diameter. No abdominal aortic aneurysm or abnormal retroperitoneal lymphadenopathy is seen. There is no free intraperitoneal air or ventral abdominal wall hernia seen. I again see a descending duodenal diverticulum. I see no evidence of bowel obstruction. Sigmoid colon diverticulosis without evidence of diverticulitis is seen. Scattered stool is seen throughout the colon. No bowel wall thickening is seen. The uterus is surgically absent. The urinary bladder is contracted. No other pelvic mass, abnormal pelvic lymphadenopathy, or free intraperitoneal fluid is seen. The skeleton reveals no acute fracture or aggressive bone lesion. Impression: 1. Stable noncalcified 9 mm x 7 mm lung nodule at the lateral right lung base. See above. 2. Sigmoid colon diverticulosis without evidence of acute diverticulitis. I also see a stable descending duodenal diverticulum. 3. The uterus is surgically absent. 4. No other acute intra-abdominal or pelvic process is seen.
== END 2020-12-17 21:18 | disposition home or self-care (01) ==
LOC: ED 16:50
DX: R10.13 Epigastric pain (principal); K57.10 Diverticulosis of small intestine without perforation or abscess without bleeding; K57.30 Diverticulosis of large intestine without perforation or abscess without bleeding; R91.1 Solitary pulmonary nodule; R10.32 Left lower quadrant pain; Z79.899 Other long term (current) drug therapy
CPT/HCPCS: 36415; 74177; 80053; 83690; 84484; 85025; 96374; 99284; J2405; A9270-GY

== ENCOUNTER 2021-03-01 06:25 | Emergency (ER) | payer OTHER ==
[2021-03-01] MEDS ORDERED: Ativan 1 MG PO ONE (07:47)
--- NOTE | 2021-03-01 07:52 | ERPHSYRPT ---
- History of Present Illness Time Seen by Provider: 03/01/21 07:46 Source: patient Exam Limitations: no limitations Patient Subjective Stated Complaint: pt c/o abd pain burning and going to back Triage Nursing Assessment: pt c/o abd pain, primarily in the mid upper abd area (sharp and burning), and it radiates to back. Abd soft and tender with hyperactive bs x4 quad, tender on palpation. Pt has had diarrhea twice this morning. Took Mylanta last night and this morning. 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 Pt was swabbed for covid this morning at work and it was negative. Pt has some nausea, no vomiting or GERD. Pt c/o headache to rt side. Pt is currently under alot of stress at this time and feels this may be all anxiety. Pt is tearful when talking about being stressed. Physician History: 45 years old female with history of anxiety, GERD presented in the ER with chief complaint of 2 episodes of diarrhea since last night, loose watery with upper abdominal discomfort mild to moderate, dull burning without any significant relieving factors. Patient does have anxiety and is out of her alprazolam for the last 3 days, later she started to have feeling of panic attack. Reports having similar symptoms in the past with worsening anxiety. Has nausea but no vomiting. No fever or chills reported. Patient thinks it is all probably because of her anxiety. Timing/Duration: yesterday, intermittent, gradual onset, worse Severity: mild Modifying Factors: Improves With: other (stress) Associated Symptoms: nausea, abdominal pain, heartburn, No vomiting, No shortness of breath, No diaphoresis, No cough, No chills, No chest pain, No fever, No headaches, No loss of appetite, No malaise, No rash, No syncope, No seizure, No weakness Allergies/Adverse Reactions: haloperidol [From Haldol] Allergy (Mild, Verified 03/01/21 06:43) "CAN'T MOVE AT ALL FOR 3 DAYS" Home Medications: PANTOPRAZOLE 40 mg Tablet [Protonix 40MG Tablet] 40 mg PO QAM 06/23/18 [History] ALPRAZolam 1 MG [Xanax 1 mg] 1 mg PO TID PRN 03/13/19 [History] Albuterol 8 gm Mdi Hfa [Ventolin Hfa MDI] 0 gm IH Q4-6HPRN PRN 10/16/20 [History] Hx Tetanus, Diphtheria Vaccination/Date Given: No Hx Influenza Vaccination/Date Given: No Hx Pneumococcal Vaccination/Date Given: No Immunizations Up to Date: No Travel Risk - International Travel Have you traveled outside of the country in past 3 weeks: No - Coronavirus Screening Are you exhibiting any of the following symptoms?: Yes Symptoms: Vomiting/Diarrhea, Headaches/Body Aches/Fatigue - Vaccine Status Have you recieved a Covid-19 vaccination: No - Review of Systems Constitutional: No Symptoms Eyes: No Symptoms Ears, Nose, & Throat: No Symptoms Respiratory: No Symptoms Cardiac: No Symptoms Abdominal/Gastrointestinal: Abdominal Pain, Nausea, Diarrhea Genitourinary Symptoms: No Symptoms Musculoskeletal: No Symptoms Skin: No Symptoms Neurological: No Symptoms Psychological: Anxiety Endocrine: No Symptoms Hematologic/Lymphatic: No Symptoms Immunological/Allergic: No Symptoms - Past Medical History Pertinent Past Medical History: Yes Neurological History: Migraines ENT History: No Pertinent History Cardiac History: No Pertinent History Respiratory History: Asthma Endocrine Medical History: Hypoglycemia Musculoskeletal History: Fibromyalgia GI Medical History: GERD History: No Pertinent History Psycho-Social History: Anxiety, Depression Female Reproductive Disorders: No Pertinent History Other Medical History: ANXIETY, GERD, HIATAL HERNIA. SX HX: HYSTERECTOMY 2018, C-SECTIONS. VITAMIN D DEFICIENCY, - Past Surgical History Past Surgical History: Yes Neuro Surgical History: No Pertinent History Cardiac: No Pertinent History Respiratory: No Pertinent History Gastrointestinal: No Pertinent History Genitourinary: No Pertinent History Musculoskeletal: No Pertinent History Female Surgical History: Hysterectomy, Dilation & Curettage, Section Other Surgical History: tonsillectomy - leep - d and c - Social History Smoking Status: Current every day smoker How long have you smoked: 29 Exposure to second hand smoke: Yes Alcohol Use: None Drug Use: none Patient Lives Alone: Yes Significant Family History: hypertension - Female History Hx Now: No - Nursing Vital Signs Nursing Vital Signs: Initial Vital Signs Temperature 98.4 F 03/01/21 06:26 Pulse Rate 75 03/01/21 06:26 Respiratory Rate 20 03/01/21 06:26 Blood Pressure 129/88 03/01/21 06:26 O2 Sat by Pulse Oximetry 99 03/01/21 06:26 Pain Scale Pain Intensity 5 - Physical Exam General Appearance: no apparent distress, alert, anxiety Eye Exam: PERRL/EOMI, eyes nml inspection Ears, Nose, Throat Exam: normal ENT inspection, TMs normal, pharynx normal Neck Exam: normal inspection, non-tender, supple, full range of motion Respiratory Exam: normal breath sounds, lungs clear Cardiovascular Exam: regular rate/rhythm, normal heart sounds Gastrointestinal/Abdomen Exam: soft, tenderness (Minimal tenderness epigastric/left upper quadrant/left flank area. No guarding or rebound.), No normal bowel sounds (Mild hyperactive) Back Exam: normal inspection, normal range of motion, No CVA tenderness Neurologic Exam: alert, oriented x 3, cooperative Skin Exam: normal color SpO2 Interpretation: normal SpO2: 99 O2 Delivery: Room Air Ordered Tests: Medication Summary Discontinued Medications Generic Name Dose Route Start Last Admin Trade Name Freq PRN Reason Stop Dose Admin Acetaminophen 975 mg 03/01/21 07:58 03/01/21 08:01 Tylenol 325 Mg PO 03/01/21 07:59 975 mg STAT STA Administration Acetaminophen Confirm 03/01/21 07:59 Tylenol 325 Mg Administered 03/01/21 08:00 Dose 975 mg .ROUTE .STK-MED ONE Al Hydrox/Mg Hydrox/Simethicone Confirm 03/01/21 07:59 Maalox Es 30 Ml Unit Dose Administered 03/01/21 08:00 Dose 30 ml .ROUTE .STK-MED ONE Lidocaine HCl Confirm 03/01/21 07:59 Xylocaine Hcl Viscous * Administered 03/01/21 08:00 Dose 15 ml .ROUTE .STK-MED ONE Lorazepam 2 mg 03/01/21 07:47 03/01/21 07:58 Ativan 1 Mg PO 03/01/21 07:48 2 mg STAT ONE Administration Lorazepam Confirm 03/01/21 07:57 Ativan 1 Mg Administered 03/01/21 07:58 Dose 2 mg .ROUTE .STK-MED ONE Magnesium Hydroxide 45 ml 03/01/21 07:58 03/01/21 08:02 Gi Cocktail 45 Ml (Maalox/Lidocaine) PO 03/01/21 07:59 45 ml STAT ONE Administration - Progress Progress: improved Progress Note: 03/01/21 08:59 45 years old presented in the ER with 2 episodes of diarrhea with some abdominal discomfort and nausea with worsening anxiety. She is given GI cocktail, T ylenol and Ativan, reevaluation feeling much better. Offered work-up but patient thinks is more of her anxiety and symptoms are improving. She has no peritoneal signs suggesting acute abdomen but could be stress related diarrhea versus viral. Recommended hydration and will give Zofran to take as needed. Patient does have a contract with Dr. White and she would follow-up with him. He recently decreased dose of alprazolam and because of her increased anxiety she could not function properly with current doses and have used extra. She is advised to call primary care tomorrow for reevaluation and see if he can fill the prescription. Recommended continue with PPI. Discussed signs symptoms of worsening needing return to ER which he seems understanding. Stable for discharge. Counseled pt/family regarding: diagnosis, need for follow-up - Departure Departure Disposition: Home Clinical Impression: Anxiety Diarrhea Qualifiers: Diarrhea type: unspecified type Qualified Code(s): R19.7 - Diarrhea, unspecified Condition: Stable Critical Care Time: No Referrals: MARRY WHITE [Primary Care Provider] - (Call tomorrow for reevaluation) Instructions: Diarrhea and Travelers' Diarrhea, Adult (DC), Generalized Anxiety Disorder (DC) Additional Instructions: Drink plenty of fluids. Take Zofran/Tylenol as needed. Follow-up with your primary care for reevaluation. Return to ER for worsening abdominal pain, nausea or if develop intractable vomiting/diarrhea/fever chills etc. Prescriptions: Ondansetron ODT 4 MG [Zofran Odt 4 mg] 4 mg PO Q6H PRN PRN #6 tablet PRN Reason: Vomiting
[2021-03-01] MEDS ORDERED: Ativan 1 MG ONE (07:57)
[2021-03-01] MEDS ORDERED: TYLENOL 325 MG PO STA (07:58)
[2021-03-01] MEDS ORDERED: GI COCKTAIL 45 ML (Maalox/Lidocaine) PO ONE (07:58)
[2021-03-01] MEDS ORDERED: TYLENOL 325 MG ONE (07:59)
[2021-03-01] MEDS ORDERED: MAALOX ES 30 ML UNIT DOSE ONE (07:59)
[2021-03-01] MEDS ORDERED: XYLOCAINE HCl Viscous ONE (07:59)
[2021-03-01 10:00] VITALS: BP 144/90; PULSE 70; O2SAT 100
== END 2021-03-01 10:00 | disposition home or self-care (01) ==
LOC: ED 06:25
DX: R19.7 Diarrhea, unspecified (principal)
CPT/HCPCS: 99283; A9270-GY

== ENCOUNTER 2021-08-10 18:22 | Emergency (ER) | payer OTHER ==
[2013-02-12 18:02] VITALS: BP 112/69
[2021-08-10] MEDS ORDERED: TYLENOL EXTRA STRENGTH 500 MG PO STA (19:37)
[2021-08-10] MEDS ORDERED: TYLENOL EXTRA STRENGTH 500 MG ONE (19:51)
[2021-08-10] MEDS ORDERED: DECADRON 10MG INJ. IV ONE (20:04)
[2021-08-10] MEDS ORDERED: DECADRON 10MG INJ. ONE (20:10)
[2021-08-10 20:11] VITALS: O2SAT 97
--- NOTE | 2021-08-10 20:17 | ERPHSYRPT ---
- History of Present Illness Time Seen by Provider: 08/10/21 19:20 Source: patient Exam Limitations: no limitations Patient Subjective Stated Complaint: Pt states "My boyfriend has been sick for 5 days and now I am, my throat hurts so bad and my ears are fuzzy." Triage Nursing Assessment: PT presented alert and oriented X 3, skin pwd Pt ambulates with an upright steady gait, able to speak in clear full sentences pt in no apaprent respiratory distress. pt has raspy voice and throat is red. Physician History: Patient is a 46-year-old female presents to emergency department for evaluation of sore throat and hoarse voice. Patient states her ears feel funny. Patient significant other has similar symptoms. Symptoms have been ongoing for the past 2 to 3 days. Symptoms are constant. No shortness of breath. No chest pain. No nausea vomiting or diaphoresis. No rash. No diarrhea. Symptoms are mild to moderate in intensity. No specific worsening or improving factors. Patient voices no other complaints concerns at this time. Timing/Duration: today Severity: moderate Modifying Factors: Improves With: nothing Associated Symptoms: cough, No nausea, No vomiting, No shortness of breath, No chest pain, No fever, No loss of appetite, No syncope, No seizure, No weakness Allergies/Adverse Reactions: haloperidol [From Haldol] Adverse Reaction (Intermediate, Verified 08/10/21 19:00) heavy sedation Home Medications: Alprazolam [Xanax] 1 mg PO DAILY 08/10/21 [History] PANTOPRAZOLE 40 mg Tablet [Protonix 40MG Tablet] 40 mg PO DAILY 08/10/21 [History] Paroxetine HCl 20 mg [Paxil 20 MG] 20 mg PO DAILY 08/10/21 [History] Hx Tetanus, Diphtheria Vaccination/Date Given: No Hx Influenza Vaccination/Date Given: No Hx Pneumococcal Vaccination/Date Given: No Immunizations Up to Date: Yes Travel Risk - International Travel Have you traveled outside of the country in past 3 weeks: No - Coronavirus Screening Are you exhibiting any of the following symptoms?: Yes Symptoms: Cough: New Onset Close contact with a COVID-19 positive Pt in past 14-21 Days: No - Vaccine Status Have you recieved a Covid-19 vaccination: Yes Medical Radiation Tech: Moderna - Vaccination Dates Date of 2cond Vaccination (if applicable): 07/13/2021 - Review of Systems Constitutional: No Symptoms, No Fever, No Chills Eyes: No Symptoms Ears, Nose, & Throat: No Symptoms Respiratory: No Symptoms, No Cough, No Dyspnea Cardiac: No Symptoms, No Chest Pain, No Edema, No Syncope Abdominal/Gastrointestinal: No Symptoms, No Abdominal Pain, No Nausea, No Vomiting, No Diarrhea Genitourinary Symptoms: No Symptoms, No Dysuria Musculoskeletal: No Symptoms, No Back Pain, No Neck Pain Skin: No Symptoms, No Rash Neurological: No Symptoms, No Dizziness, No Focal Weakness, No Sensory Changes Psychological: No Symptoms Endocrine: No Symptoms Hematologic/Lymphatic: No Symptoms Immunological/Allergic: No Symptoms All Other Systems: Reviewed and Negative - Past Medical History Respiratory History: COPD Endocrine Medical History: Hypoglycemia Musculoskeletal History: Fibromyalgia Psycho-Social History: Anxiety, Depression Other Medical History: cervical cancer - Past Surgical History Past Surgical History: Yes Female Surgical History: Hysterectomy Other Surgical History: leap - Social History Smoking Status: Current every day smoker How long have you smoked: years Exposure to second hand smoke: Yes Drug Use: none Patient Lives Alone: No - Female History Hx Last Menstrual Period: 2018 hysterectomy Hx Now: No - Nursing Vital Signs Nursing Vital Signs: Initial Vital Signs Temperature 97.6 F 08/10/21 18:52 Pulse Rate 73 08/10/21 18:52 Respiratory Rate 22 08/10/21 18:52 Blood Pressure 150/100 08/10/21 18:52 O2 Sat by Pulse Oximetry 100 08/10/21 18:52 Pain Scale Pain Intensity 8 - Physical Exam General Appearance: no apparent distress, alert Eye Exam: PERRL/EOMI, eyes nml inspection Ears, Nose, Throat Exam: normal ENT inspection, TMs normal, pharynx normal, moist mucous membranes Neck Exam: normal inspection, non-tender, supple, full range of motion Respiratory Exam: normal breath sounds, lungs clear, airway intact, No respiratory distress Cardiovascular Exam: regular rate/rhythm, normal heart sounds, normal peripheral pulses Gastrointestinal/Abdomen Exam: soft, normal bowel sounds, No tenderness, No mass Back Exam: normal inspection, normal range of motion, No CVA tenderness, No vertebral tenderness Extremity Exam: normal inspection, normal range of motion, pelvis stable Neurologic Exam: alert, oriented x 3, cooperative, normal mood/affect, nml cerebellar function, nml station & gait, sensation nml, No motor deficits Skin Exam: normal color, warm, dry, No rash Lymphatic Exam: No adenopathy SpO2 Interpretation: normal SpO2: 97 O2 Delivery: Room Air - Course Nursing assessment & vital signs reviewed: Yes Ordered Tests: Medication Summary Discontinued Medications Generic Name Dose Route Start Last Admin Trade Name Kenyon PRN Reason Stop Dose Admin Acetaminophen 1,000 mg 08/10/21 19:37 08/10/21 19:52 Acetaminophen 500 Mg Tablet PO 08/10/21 19:38 1,000 mg STAT STA Administration Acetaminophen Confirm 08/10/21 19:51 Acetaminophen 500 Mg Tablet Administered 08/10/21 19:52 Dose 1,000 mg .ROUTE .STK-MED ONE Dexamethasone Sodium Phosphate 8 mg 08/10/21 20:04 08/10/21 20:11 Dexamethasone Sod Phosphate 10 Mg/Ml IV 08/10/21 20:05 8 mg STAT ONE Administration Dexamethasone Sodium Phosphate Confirm 08/10/21 20:10 Dexamethasone Sod Phosphate 10 Mg/Ml Administered 08/10/21 20:11 Dose 10 mg .ROUTE .STK-MED ONE Lab/Rad Data: Laboratory Results 08/10/21 Range/Units 19:50 Group A Strep Antibody NOT DETECTED (NEGATIVE) - Progress Progress: improved Progress Note: Rapid strep negative. No indication for antibiotics. Patient received a dose of Decadron to treat her laryngitis and viral pharyngitis. No indication for further work-up. Supportive care with [id number] medications as needed. Patient voices no other complaints concerns this time. Will discharge home. Patient agrees to follow-up with a primary care doctor within 48 hours for evaluation. Portions of this note were created with voice recognition technology. There may be grammatical, spelling, punctuation or sound alike errors 08/10/21 20:34 Counseled pt/family regarding: lab results, diagnosis, need for follow-up - Departure Departure Disposition: Home Clinical Impression: Laryngitis, Viral pharyngitis Condition: Stable Critical Care Time: No Referrals: MARRY WHITE MD [Primary Care Provider] - Follow up/PCP as directed Additional Instructions: Discharge/Care Plan SETH BAGLEY was seen on 08/10/21 in the Emergency Room. The patient was counse led regarding Diagnosis,Lab results, Imaging studies, need for follow up and when to return to the Emergency Room. Prescriptions given: Discharge Note I have spoken with the patient and/or caregivers. I have explained the patient's condition, diagnosis and treatment plan based on the information available to me at this time. I have answered the patient's and/or caregiver's questions and addressed any concerns. The patient and/or caregivers have as good understanding of the patient's diagnosis, condition and treatment plan as can be expected at this point. The vital signs have been stable. The patient's condition is stable and appropriate for discharge from the emergency department. The patient will pursue further outpatient evaluation with the primary care physician or other designated or consulting physician as outlined in the discharge instructions. The patient and/or caregivers are agreeable to this plan of care and follow-up instructions have been explained in detail. The patient and/or caregivers have received these instruction. The patient/and or caregivers are aware that any significant change in condition or worsening of symptoms should prompt an immediate return to this or the closest emergency department or call 911.
[2021-08-10 20:36] VITALS: BP 119/82; PULSE 70
== END 2021-08-10 20:40 | disposition home or self-care (01) ==
LOC: ED 18:22 → MERGE 18:22 → ED 20:40
DX: J04.0 Acute laryngitis (principal); J02.9 Acute pharyngitis, unspecified; B97.89 Other viral agents as the cause of diseases classified elsewhere; R05.9 Cough, unspecified; J44.9 Chronic obstructive pulmonary disease, unspecified; E16.2 Hypoglycemia, unspecified; Z72.0 Tobacco use; Z79.899 Other long term (current) drug therapy
CPT/HCPCS: 87651; 96372; 99284; J1100; A9270-GY

== ENCOUNTER 2021-09-03 07:50 | Emergency (ER) | payer OTHER ==
[2021-09-03] MEDS ORDERED: TORAdol 30 mg Injection IV ONE (08:08)
[2021-09-03] MEDS ORDERED: Sodium Chloride 0.9% 1000 ML 1,000 ML IV STA (08:08)
[2021-09-03] MEDS ORDERED: Protonix 40MG Tablet PO ONE (08:08)
[2021-09-03] MEDS ORDERED: Zofran 4 MG/2 ML VIAL IV ONE (08:08)
--- NOTE | 2021-09-03 08:13 | ERPHSYRPT ---
- History of Present Illness Historian: patient Exam Limitations: no limitations Patient Subjective Stated Complaint: Pt states "I have been projectile vomiting for about 36 hours and having diarrhea. I haven't vomited since 2 pm yesterday." Triage Nursing Assessment: Pt alert and oriented x3, pt denies nausea currently. Pt c/o diffuse abdominal pain for 2 days. Pt has been vomiting and had diarrhea but has not had an episode of either since yesterday afternoon. Pt afebrile Physician History: 46 yo wf w N/V/D x 2 days which has resolved but now has generalized abdominal pain which is rated an 8/10 and described as a "burning-ache". She denies hematemesis/hematochezia/melena/dysuria/hematuria/fever/chest pain. She has had a EVELYN. Timing/Duration: day(s) (2 days) Activities at Onset: rest Quality: aching, burning Abdominal Pain Onset Location: generalized abdomen Pain Radiation: no radiation Severity of Pain-Max: severe Severity of Pain-Current: severe Modifying Factors: Improves With: breathing, vomiting. Worsens With: analgesics, antacids, coughing, defecating, eating, exercise, lying down, movement, palpation, rest, urinating, position, walking Associated Symptoms: diarrhea, nausea, vomiting, No back, No chest pain, No diaphoresis, No fever/chills, No fatigue, No headache, No heartburn, No loss of appetite, No neck pain, No rash, No shortness of breath, No syncope, No weakness Previous symptoms: no prior history Allergies/Adverse Reactions: haloperidol [From Haldol] Allergy (Mild, Verified 08/11/21 08:22) "CAN'T MOVE AT ALL FOR 3 DAYS" Home Medications: PANTOPRAZOLE 40 mg Tablet [Protonix 40MG Tablet] 40 mg PO QAM 06/23/18 [History] ALPRAZolam 1 MG [Xanax 1 mg] 1 mg PO TID PRN 03/13/19 [History] Albuterol 8 gm Mdi Hfa [Ventolin Hfa MDI] 0 gm IH Q4-6HPRN PRN 10/16/20 [History] Alprazolam [Xanax] 1 mg PO DAILY 08/10/21 [History] PANTOPRAZOLE 40 mg Tablet [Protonix 40MG Tablet] 40 mg PO DAILY 08/10/21 [History] Paroxetine HCl 20 mg [Paxil 20 MG] 20 mg PO DAILY 08/10/21 [History] Hx Tetanus, Diphtheria Vaccination/Date Given: No Hx Influenza Vaccination/Date Given: No Hx Pneumococcal Vaccination/Date Given: No Immunizations Up to Date: No Travel Risk - International Travel Have you traveled outside of the country in past 3 weeks: No - Coronavirus Screening Are you exhibiting any of the following symptoms?: No Close contact with a COVID-19 positive Pt in past 14-21 Days: No - Vaccine Status Have you recieved a Covid-19 vaccination: Yes Data Analysis Intern: Moderna - Vaccination Dates Date of 2cond Vaccination (if applicable): 07/13/2021 - Review of Systems Constitutional: No Symptoms, Fatigue, Lethargy Eyes: No Symptoms Ears, Nose, & Throat: No Symptoms Respiratory: No Symptoms Cardiac: No Symptoms Abdominal/Gastrointestinal: No Symptoms, Abdominal Pain, Nausea, Vomiting, Diarrhea, Appetite Changes, No Constipation, No Hematemesis, No Hematochezia, No Melena, No Dysphagia Genitourinary Symptoms: No Symptoms, No Dysuria, No Frequency, No Hematuria, No Hesitancy, No Incontinence, No Urgency, No Urinary Retention, No Flank Pain, No Menorrhagia, No , No Vaginal Bleeding, No Vaginal Discharge, No Vaginal Itching Musculoskeletal: No Arthralgias, No Back Pain, No Neck Pain, No Deformity, No Fall, No Injury, No Joint Redness, No Joint Pain, No Joint Swelling, No Myalgias Skin: No Symptoms Neurological: No Symptoms Psychological: No Symptoms Endocrine: No Symptoms Hematologic/Lymphatic: No Symptoms Immunological/Allergic: No Symptoms - Past Medical History Pertinent Past Medical History: Yes Neurological History: Migraines ENT History: No Pertinent History Cardiac History: No Pertinent History Respiratory History: COPD, Asthma Endocrine Medical History: Hypoglycemia Musculoskeletal History: Fibromyalgia GI Medical History: GERD History: No Pertinent History Psycho-Social History: Depression, Anxiety Female Reproductive Disorders: No Pertinent History Other Medical History: cervical cancer - Past Surgical History Past Surgical History: Yes Neuro Surgical History: No Pertinent History Cardiac: No Pertinent History Respiratory: No Pertinent History Gastrointestinal: No Pertinent History Genitourinary: No Pertinent History Musculoskeletal: No Pertinent History Female Surgical History: Hysterectomy, Section, Dilation & Curettage Other Surgical History: leap - Social History Smoking Status: Current every day smoker How long have you smoked: years Exposure to second hand smoke: Yes Alcohol Use: None Drug Use: none Patient Lives Alone: No Significant Family History: hypertension - Female History Hx Now: No - Nursing Vital Signs Nursing Vital Signs: Initial Vital Signs Temperature 98.1 F 09/03/21 07:55 Pulse Rate 80 09/03/21 07:55 Respiratory Rate 18 09/03/21 07:55 Blood Pressure 130/88 09/03/21 07:55 O2 Sat by Pulse Oximetry 99 09/03/21 07:55 Pain Scale Pain Intensity 1 WNL - Physical Exam General Appearance: no apparent distress Eye Exam: PERRL/EOMI, eyes nml inspection Ears, Nose, Throat Exam: normal ENT inspection, TMs normal, pharynx normal, moist mucous membranes Neck Exam: normal inspection, non-tender, supple, full range of motion Respiratory Exam: normal breath sounds, lungs clear, airway intact Cardiovascular Exam: regular rate/rhythm, normal heart sounds, normal peripheral pulses, No murmur Gastrointestinal/Abdomen Exam: soft, normal bowel sounds, tenderness (Mild epigastric TTP wo guarding or rebound), No distention Back Exam: normal inspection, normal range of motion, No CVA tenderness Extremity Exam: normal inspection, normal range of motion Neurologic Exam: alert, oriented x 3, cooperative, printed circuit boards plasma etcher II-XII nml as tested, normal mood/affect, nml cerebellar function, nml station & gait, sensation nml, No motor deficits, No sensory deficit Skin Exam: normal color, warm, dry Lymphatic Exam: No adenopathy SpO2 Interpretation: normal SpO2: 99 O2 Delivery: Room Air - Course Nursing assessment & vital signs reviewed: Yes Ordered Tests: Active Orders 24 hr Category Date Time Status IV Insertion STAT Care 09/03/21 08:08 Completed AMYLASE Stat Lab 09/03/21 08:00 Completed CBC W DIFF Stat Lab 09/03/21 08:00 Completed CMP Stat Lab 09/03/21 08:00 Completed COVID AG-BINAX NOW RAPID TEST Stat Lab 09/03/21 08:37 Completed LIPASE Stat Lab 09/03/21 08:00 Completed TROPONIN Q3H Lab 09/03/21 08:00 Completed UA W/RFX UR CULTURE Stat Lab 09/03/21 08:13 Completed Medication Summary Discontinued Medications Generic Name Dose Route Start Last Admin Trade Name Kenyon PRN Reason Stop Dose Admin Sodium Chloride 1,000 mls @ 999 mls/hr 09/03/21 08:08 09/03/21 09:24 Sodium Chloride 0.9% 1000 Ml IV 09/03/21 09:08 Infused .Q1H1M STA Infusion Sodium Chloride Confirm 09/03/21 08:20 Sodium Chloride 0.9% 1000 Ml Administered 09/03/21 08:21 Dose 1,000 mls @ ud .ROUTE .STK-MED ONE Ketorolac Tromethamine 30 mg 09/03/21 08:08 09/03/21 08:23 Ketorolac Tromethamine 30 Mg/Ml Inj IV 09/03/21 08:09 30 mg STAT ONE Administration Ketorolac Tromethamine Confirm 09/03/21 08:20 Ketorolac Tromethamine 30 Mg/Ml Inj Administered 09/03/21 08:21 Dose 30 mg .ROUTE .STK-MED ONE Ondansetron HCl 4 mg 09/03/21 08:08 09/03/21 08:22 Ondansetron Hcl 4 Mg/2 Ml Vial IV 09/03/21 08:09 4 mg STAT ONE Administration Ondansetron HCl Confirm 09/03/21 08:20 Ondansetron Hcl 4 Mg/2 Ml Vial Administered 09/03/21 08:21 Dose 4 mg .ROUTE .STK-MED ONE Pantoprazole Sodium 40 mg 09/03/21 08:08 09/03/21 08:23 Protonix (Pantoprazole) 40 Mg Tablet PO 09/03/21 08:09 Not Given STAT ONE Pantoprazole Sodium Confirm 09/03/21 08:20 Pantoprazole 40 Mg Vial Administered 09/03/21 08:21 Dose 40 mg IV .STK-MED ONE Pantoprazole Sodium 40 mg 09/03/21 08:24 09/03/21 08:24 Pantoprazole 40 Mg Vial IV 09/03/21 08:25 40 mg STAT ONE Administration Lab/Rad Data: Laboratory Result Diagrams 09/03/21 08:00 09/03/21 08:00 Laboratory Results 09/03/21 09/03/21 09/03/21 Range/Units 08:37 08:13 08:00 WBC (4.0-10.5) K/mm3 RBC (4.1-5.4) M/mm3 Hgb (12.0-16.0) gm/dl Hct (35-47) % MCV (78-100) fl MCH (26-32) pg MCHC (32-36) g/dl RDW (11.5-14.0) % Plt Count (150-450) K/mm3 MPV (7.5-11.0) fl Gran % (36.0-66.0) % Eos # (Auto) (0-0.5) Absolute Lymphs (auto) (1.0-4.6) Absolute Monos (auto) (0.0-1.3) Lymphocytes % (24.0-44.0) % Monocytes % (0.0-12.0) % Eosinophils % (0.00-5.0) % Basophils % (0.0-0.4) % Absolute Granulocytes (1.4-6.9) Basophils # (0-0.4) Sodium (137-145) mmol/L Potassium (3.5-5.1) mmol/L Chloride (98-107) mmol/L Carbon Dioxide (22-30) mmol/L Anion Gap (5-15) MEQ/L BUN (7-17) mg/dL Creatinine (0.52-1.04) mg/dL Estimated GFR ML/MIN Glucose (74-106) mg/dL Calcium (8.4-10.2) mg/dL Total Bilirubin (0.2-1.3) mg/dL AST (14-36) U/L ALT (0-35) U/L Alkaline Phosphatase (38-126) U/L Troponin I < 0.012 (0.000-0.034) ng/mL Serum Total Protein (6.3-8.2) g/dL Albumin (3.5-5.0) g/dL Amylase (30-110) U/L Lipase (23-300) U/L Urine Color YELLOW (YELLOW) Urine Appearance SLIGHTLY CLOUDY (CLEAR) Urine pH 6.0 (5-6) Ur Specific [place] 1.010 (1.005-1.025) Urine Protein NEGATIVE (Negative) Urine Ketones NEGATIVE (NEGATIVE) Urine Blood NEGATIVE (0-5) Blake/ul Urine Nitrite NEGATIVE (NEGATIVE) Urine Bilirubin NEGATIVE (NEGATIVE) Urine Urobilinogen 2 (0-1) mg/dL Ur Leukocyte Esterase NEGATIVE (NEGATIVE) Urine WBC (Auto) 0-2 (0-5) /HPF Urine RBC (Auto) NONE (0-2) /HPF U Epithel Cells (Auto) RARE (FEW) /HPF Urine Bacteria (Auto) RARE (NEGATIVE) /HPF Urine Mucus (Auto) SLIGHT (NEGATIVE) /HPF Urine Culture Reflexed NO (NO) Urine Glucose NEGATIVE (NEGATIVE) mg/dL SARS-CoV-2 Ag (Rapid) NEGATIVE (NEGATIVE) 09/03/21 09/03/21 Range/Units 08:00 08:00 WBC 5.7 (4.0-10.5) K/mm3 RBC 4.60 (4.1-5.4) M/mm3 Hgb 14.5 (12.0-16.0) gm/dl Hct 43.9 (35-47) % MCV 95.4 (78-100) fl MCH 31.5 (26-32) pg MCHC 33.0 (32-36) g/dl RDW 12.9 (11.5-14.0) % Plt Count 301 (150-450) K/mm3 MPV 9.9 (7.5-11.0) fl Gran % 63.6 (36.0-66.0) % Eos # (Auto) 0.07 (0-0.5) Absolute Lymphs (auto) 1.29 (1.0-4.6) Absolute Monos (auto) 0.70 (0.0-1.3) Lymphocytes % 22.7 L (24.0-44.0) % Monocytes % 12.3 H (0.0-12.0) % Eosinophils % 1.2 (0.00-5.0) % Basophils % 0.2 (0.0-0.4) % Absolute Granulocytes 3.62 (1.4-6.9) Basophils # 0.01 (0-0.4) Sodium 135 L (137-145) mmol/L Potassium 4.9 (3.5-5.1) mmol/L Chloride 101 (98-107) mmol/L Carbon Dioxide 26 (22-30) mmol/L Anion Gap 13.0 (5-15) MEQ/L BUN 10 (7-17) mg/dL Creatinine 0.56 (0.52-1.04) mg/dL Estimated GFR > 60.0 ML/MIN Glucose 109 H (74-106) mg/dL Calcium 9.2 (8.4-10.2) mg/dL Total Bilirubin 0.90 (0.2-1.3) mg/dL AST 38 H (14-36) U/L ALT 27 (0-35) U/L Alkaline Phosphatase 64 (38-126) U/L Troponin I (0.000-0.034) ng/mL Serum Total Protein 7.5 (6.3-8.2) g/dL Albumin 4.5 (3.5-5.0) g/dL Amylase 46 (30-110) U/L Lipase 86 (23-300) U/L Urine Color (YELLOW) Urine Appearance (CLEAR) Urine pH (5-6) Ur Specific [place] (1.005-1.025) Urine Protein (Negative) Urine Ketones (NEGATIVE) Urine Blood (0-5) Blake/ul Urine Nitrite (NEGATIVE) Urine Bilirubin (NEGATIVE) Urine Urobilinogen (0-1) mg/dL Ur Leukocyte Esterase (NEGATIVE) Urine WBC (Auto) (0-5) /HPF Urine RBC (Auto) (0-2) /HPF U Epithel Cells (Auto) (FEW) /HPF Urine Bacteria (Auto) (NEGATIVE) /HPF Urine Mucus (Auto) (NEGATIVE) /HPF Urine Culture Reflexed (NO) Urine Glucose (NEGATIVE) mg/dL SARS-CoV-2 Ag (Rapid) (NEGATIVE) - Progress Progress: improved Progress Note: 09/03/21 10:17 1L NS bolus/30mg IV Toradol/40mg IV Protonix/4mg IV Zofran w improvement 2nd exam-good BS/Soft/Mild epigastric TTP wo guarding or rebound Counseled pt/family regarding: lab results, diagnosis, need for follow-up - Departure Departure Disposition: Home Clinical Impression: Nausea & vomiting Condition: Stable Critical Care Time: No Referrals: MARRY WHITE MD [Primary Care Provider] - Follow up/PCP as directed Instructions: Acute Abdomen (Belly Pain), Adult (DC), Nausea and Vomiting, Adult (DC) Additional Instructions: Fluids Zofran for nausea/vomiting Return to ER for increasing abdominal pain,temperature greater than 100.5, or inability to hold down fluids Prescriptions: Ondansetron ODT 4 MG [Zofran Odt 4 mg] 4 mg PO Q6H PRN PRN #10 PRN Reason: Nausea/Vomiting
[2021-09-03] MEDS ORDERED: TORAdol 30 mg Injection ONE (08:20)
[2021-09-03] MEDS ORDERED: Zofran 4 MG/2 ML VIAL ONE (08:20)
[2021-09-03] MEDS ORDERED: Sodium Chloride 0.9% 1000 ML 1,000 ML ONE (08:20)
[2021-09-03] MEDS ORDERED: PROTONIX 40 MG IV IV ONE ×2 (08:20→08:24)
[2021-09-03 08:37] LABS: Absolute Neutrophil Ct (ANC) 3.62 (1.4-6.9); Basophil (Absolute #) 0.01 (0-0.4); Eosinophil % 1.2 % (0.00-5.0); Eosinophil (Absolute #) 0.07 (0-0.5); Hematocrit 43.9 % (35-47); Hemoglobin 14.5 gm/dl (12.0-16.0); Lymphocyte (Absolute #) 1.29 (1.0-4.6); Lymphocytes % 22.7 % (24.0-44.0); Mean Cell Volume 95.4 fl (78-100); Mean Corpuscular Hemoglobin 31.5 pg (26-32); Mean Platelet Volume 9.9 fl (7.5-11.0); Monocytes % 12.3 % (0.0-12.0); Neutrophil % 63.6 % (36.0-66.0); Platelet Count 301 K/mm3 (150-450); Red Cell Distribution Width 12.9 % (11.5-14.0); White Blood Count 5.7 K/mm3 (4.0-10.5)
[2021-09-03 08:54] LABS: ALBUMIN 4.5 g/dL (3.5-5.0); ALKALINE PHOSPHATASE 64 U/L (38-126); AMYLASE 46 U/L (30-110); BLOOD UREA NITROGEN 10 mg/dL (7-17); CHLORIDE 101 mmol/L (98-107); Calcium 9.2 mg/dL (8.4-10.2); Carbon Dioxide 26 mmol/L (22-30); Creatinine 1 0.56 mg/dL (0.52-1.04); EST GLOMERULAR FILTRATION RATE > 60.0 ML/MIN; Glucose 109 mg/dL (74-106); LIPASE 86 U/L (23-300); Potassium 4.9 mmol/L (3.5-5.1); SGOT/AST 38 U/L (14-36); SGPT/ALT 27 U/L (0-35); SODIUM 135 mmol/L (137-145); Total Protein 7.5 g/dL (6.3-8.2)
[2021-09-03 09:04] LABS: COVID AG -BINAX NOW RAPID TEST NEGATIVE (NEGATIVE)
[2021-09-03 10:11] LABS: Appearance SLIGHTLY CLOUDY (CLEAR); Bacteria RARE /HPF (NEGATIVE); Bilirubin NEGATIVE (NEGATIVE); Blood NEGATIVE Ery/ul (0-5); Epithelial Cells RARE /HPF (FEW); Glucose NEGATIVE (NEGATIVE); Ketones NEGATIVE (NEGATIVE); Leukocyte Esterase NEGATIVE (NEGATIVE); Mucus SLIGHT /HPF (NEGATIVE); Nitrite NEGATIVE (NEGATIVE); Protein,Urine Dip NEGATIVE (Negative); Urobilinogen 2 mg/dL (0-1); WBC 0-2 /HPF (0-5)
[2021-09-03 10:14] VITALS: O2SAT 99
[2021-09-03 10:15] VITALS: BP 104/63; PULSE 56
== END 2021-09-03 10:31 | disposition home or self-care (01) ==
LOC: ED 07:50
DX: R11.2 Nausea with vomiting, unspecified (principal); R10.84 Generalized abdominal pain; R19.7 Diarrhea, unspecified; J44.9 Chronic obstructive pulmonary disease, unspecified; K21.9 Gastro-esophageal reflux disease without esophagitis; Z72.0 Tobacco use; Z79.899 Other long term (current) drug therapy
CPT/HCPCS: 36000; 36415; 80053; 81001; 82150; 83690; 84484; 85025; 96360; 96374; 96375; 99000; 99284; J1885; J2405

== ENCOUNTER 2021-09-28 11:23 | Emergency (ER) | payer OTHER ==
--- NOTE | 2021-09-28 11:36 | ERPHSYRPT ---
- History of Present Illness Time Seen by Provider: 09/28/21 11:36 Source: patient Exam Limitations: no limitations Physician History: This is a 46-year-old white female known to me because of several visits to the emergency department for various issues. Today, this patient, who has significant panic attack/anxiety disorder presents with back pain that is been present intermittently for several weeks. Patient has a longstanding history of alcohol abuse and quit drinking alcohol back in March 2021. She also has a significant smoking of cigarette history having dropped her cigarette smoking down to half a pack a day. She has a known lung nodule and was given an order to undergo a CAT scan of the chest with contrast recently. However, patient does not have a phone or transportation to get the testing completed. She noticed, and last several weeks she is having intermittent low back pain. She has a family history, her father, of lung cancer and the first presenting symptom for the patient was back pain. She did not suffer any acute traumatic fall or injury to her back. She denies chest pain. She denies abdominal pain. She has no shortness of breath. Timing/Duration: other (Chronic) Method of Injury: other (No injury) Back Pain Location: T-spine, lumbar spine Severity of Pain-Max: mild (To moderate) Severity of Pain-Current: mild (To moderate) Modifying Factors: Improves With: movement Associated Symptoms: denies symptoms Previous symptoms: no prior history Allergies/Adverse Reactions: haloperidol [From Haldol] Allergy (Mild, Verified 09/28/21 11:43) "CAN'T MOVE AT ALL FOR 3 DAYS" Home Medications: Albuterol 8 gm Mdi Hfa [Ventolin Hfa MDI] 0 gm IH Q4-6HPRN PRN 10/16/20 [History] Alprazolam [Xanax] 1 mg PO DAILY 08/10/21 [History] PANTOPRAZOLE 40 mg Tablet [Protonix 40MG Tablet] 40 mg PO DAILY 08/10/21 [History] Hx Tetanus, Diphtheria Vaccination/Date Given: No Hx Influenza Vaccination/Date Given: No Hx Pneumococcal Vaccination/Date Given: No Travel Risk - International Travel Have you traveled outside of the country in past 3 weeks: No - Coronavirus Screening Are you exhibiting any of the following symptoms?: No Close contact with a COVID-19 positive Pt in past 14-21 Days: No - Vaccine Status Have you recieved a Covid-19 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: 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 - Vaccination Dates Date of 2cond Vaccination (if applicable): 07/13/2021 - Review of Systems Constitutional: No Symptoms Eyes: No Symptoms Ears, Nose, & Throat: No Symptoms Respiratory: No Symptoms Cardiac: No Symptoms Abdominal/Gastrointestinal: No Symptoms Genitourinary Symptoms: No Symptoms Musculoskeletal: Back Pain Skin: No Symptoms Neurological: No Symptoms Psychological: No Symptoms Endocrine: No Symptoms Hematologic/Lymphatic: No Symptoms Immunological/Allergic: No Symptoms All Other Systems: Reviewed and Negative - Past Medical History Pertinent Past Medical History: Yes Neurological History: Migraines ENT History: No Pertinent History Cardiac History: No Pertinent History Respiratory History: COPD, Asthma Endocrine Medical History: Hypoglycemia Musculoskeletal History: Fibromyalgia GI Medical History: GERD History: No Pertinent History Psycho-Social History: Depression, Anxiety Female Reproductive Disorders: No Pertinent History Other Medical History: cervical cancer - Past Surgical History Past Surgical History: Yes Neuro Surgical History: No Pertinent History Cardiac: No Pertinent History Respiratory: No Pertinent History Gastrointestinal: No Pertinent History Genitourinary: No Pertinent History Musculoskeletal: No Pertinent History Female Surgical History: Hysterectomy, Section, Dilation & Curettage Other Surgical History: leap - Social History Smoking Status: Current every day smoker How long have you smoked: years Exposure to second hand smoke: Yes Alcohol Use: None Drug Use: none Patient Lives Alone: No Significant Family History: hypertension - Nursing Vital Signs Nursing Vital Signs: Initial Vital Signs Temperature 98.0 F 09/28/21 11:31 Pulse Rate 79 09/28/21 11:31 Blood Pressure 156/79 09/28/21 11:31 O2 Sat by Pulse Oximetry 100 09/28/21 11:31 Pain Scale Pain Intensity [Left Medial 8 Back] Pain Intensity 8 - Physical Exam General Appearance: no apparent distress, alert, anxiety, obese Eye Exam: PERRL/EOMI, eyes nml inspection Ears, Nose, Throat Exam: normal ENT inspection, moist mucous membranes Neck Exam: normal inspection, non-tender, supple, full range of motion Respiratory Exam: normal breath sounds, lungs clear, airway intact, No chest tenderness, No respiratory distress Cardiovascular Exam: regular rate/rhythm, normal heart sounds, normal peripheral pulses Gastrointestinal Exam: soft, normal bowel sounds, No tenderness Pelvic Exam: not done Rectal Exam: not done Back Exam: normal inspection, normal range of motion, vertebral tenderness (Low thoracic upper lumbar), No CVA tenderness Extremity Exam: normal inspection, normal range of motion, pelvis stable Neurologic Exam: alert, oriented x 3, cooperative, 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 nml as tested, normal mood/affect, nml cerebellar function, nml station & gait, sensation nml Skin Exam: normal color, warm, dry Lymphatic Exam: No adenopathy SpO2 Interpretation: normal O2 Delivery: Room Air - Course Nursing assessment & vital signs reviewed: Yes Ordered Tests: Active Orders 24 hr Category Date Time Status LUMBAR COMPLETE (MIN 4 VIEWS) Stat Exams 09/28/21 12:13 Completed THORACIC SPINE (AP,LAT,SWIMM) Stat Exams 09/28/21 12:13 Completed - Progress Progress: unchanged, pain not gone completely, re-examined Progress Note: 09/28/21 13:12 Thoracic spine x-rays shows no acute fracture or subluxation. There are no soft tissue abnormalities. Lumbar spine x-rays show no acute fracture or subluxation. There are no soft tissue abnormalities. Counseled pt/family regarding: diagnosis, need for follow-up, rad results - Departure Departure Disposition: Home Clinical Impression: Back pain Condition: Stable Critical Care Time: No Referrals: MARRY WHITE MD [Primary Care Provider] - Follow up/PCP as directed Additional Instructions: Take your medication as prescribed. Follow-up with your primary prescribing provider for further evaluation and management. Prescriptions: Hydrocodone/APAP 5/325 [Moran 5/325 mg] 1 each PO Q8H PRN PRN #6 tablet MDD 3 PRN Reason: Pain
[2021-09-28 11:43] VITALS: BP 156/79; PULSE 79; O2SAT 100
--- NOTE | 2021-09-28 13:03 | XRAY ---
Indication: Pain. Comparison: None 5 view lumbar spine demonstrates 5 lumbar segments in normal alignment with vertebral body heights/disc spaces maintained. No bony, articular, or soft tissue abnormalities.
--- NOTE | 2021-09-28 13:03 | XRAY ---
Indication: Pain. Comparison: May 05, 2020. AP/lateral thoracic spine demonstrates normal alignment with vertebral body heights/disc spaces maintained. No new/acute bony, articular, or soft tissue abnormalities.
== END 2021-09-28 13:26 | disposition home or self-care (01) ==
LOC: ED 11:23
DX: M54.50 Low back pain, unspecified (principal); F41.9 Anxiety disorder, unspecified; J44.9 Chronic obstructive pulmonary disease, unspecified; K21.9 Gastro-esophageal reflux disease without esophagitis; Z72.0 Tobacco use; Z79.899 Other long term (current) drug therapy; Z79.891 Long term (current) use of opiate analgesic
CPT/HCPCS: 72072; 72110; 99283

== ENCOUNTER 2022-08-30 15:27 | Emergency (ER) | payer OTHER ==
[2022-08-30] MEDS ORDERED: Fluor-I-Strip/Ful-Flo OP ONE ×2 (15:33→15:34)
[2022-08-30] MEDS ORDERED: Eye-Stream Solution OP ONE (15:33)
[2022-08-30] MEDS ORDERED: TETRACAINE 0.5% STERI-UNIT SOL OP STA (15:33)
[2022-08-30] MEDS ORDERED: TETRACAINE 0.5% STERI-UNIT SOL OP ONE (15:34)
[2022-08-30] MEDS ORDERED: Eye-Stream Solution ONE ×2 (15:34→15:46)
[2022-08-30] MEDS ORDERED: Erythromycin 1 GM ONE (15:46)
--- NOTE | 2022-08-30 15:55 | ERPHSYRPT ---
- History of Present Illness Time Seen by Provider: 08/30/22 15:47 Source: patient Exam Limitations: no limitations Physician History: Patient is a 47-year-old female presents to our ED with eye irritation. Patient states she had a foreign body sensation today. Patient attributes the foreign body sensation to exposure to wood shavings. Patient states that she was around sawdust yesterday. Since then she has been feeling a gritty sensation in her right eye under her right upper eyelid. Patient began to pick at her left eye. Patient was able to remove small amount of sawdust which she has collected in a tissue. However patient now is complaining of worsening eye irritation. No trauma. No fever. Patient does not wear contacts. Patient uses corrective lenses for reading. Patient is otherwise healthy. She voices no other complaints or concerns at this time. No acute change in vision Portions of this note were created with voice recognition technology. There may be grammatical, spelling, punctuation or sound alike errors Timing/Duration: today Location: right eye Severity: moderate Apparent Injury: no Associated Symptoms: pain Visual Assistive Devices: None Chemical Exposure: No Trauma: No Welding Arc/Tanning Bed Exposure: No Allergies/Adverse Reactions: haloperidol [From Haldol] Allergy (Mild, Verified 09/28/21 11:43) "CAN'T MOVE AT ALL FOR 3 DAYS" Home Medications: Albuterol 8 gm Mdi Hfa [Ventolin Hfa MDI] 0 gm IH Q4-6HPRN PRN 10/16/20 [History] Alprazolam [Xanax] 1 mg PO DAILY 08/10/21 [History] PANTOPRAZOLE 40 mg Tablet [Protonix 40MG Tablet] 40 mg PO DAILY 08/10/21 [History] Hx Tetanus, Diphtheria Vaccination/Date Given: No Hx Influenza Vaccination/Date Given: No Hx Pneumococcal Vaccination/Date Given: No Travel Risk - Vaccine Status Have you recieved a Covid-19 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: 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 - Vaccination Dates Date of 2cond Vaccination (if applicable): 07/13/2021 - Review of Systems Constitutional: No Symptoms, No Fever, No Chills Eyes: No Symptoms Ears, Nose, & Throat: No Symptoms Respiratory: No Symptoms, No Cough, No Dyspnea Cardiac: No Symptoms, No Chest Pain, No Edema, No Syncope Abdominal/Gastrointestinal: No Symptoms, No Abdominal Pain, No Nausea, No Vomiting, No Diarrhea Genitourinary Symptoms: No Symptoms, No Dysuria Musculoskeletal: No Symptoms, No Back Pain, No Neck Pain Skin: No Symptoms, No Rash Neurological: No Symptoms, No Dizziness, No Focal Weakness, No Sensory Changes Psychological: No Symptoms Endocrine: No Symptoms Hematologic/Lymphatic: No Symptoms Immunological/Allergic: No Symptoms All Other Systems: Reviewed and Negative - Past Medical History Pertinent Past Medical History: Yes Neurological History: Migraines ENT History: No Pertinent History Cardiac History: No Pertinent History Respiratory History: COPD, Asthma Endocrine Medical History: Hypoglycemia Musculoskeletal History: Fibromyalgia GI Medical History: GERD History: No Pertinent History Psycho-Social History: Depression, Anxiety Female Reproductive Disorders: No Pertinent History Other Medical History: cervical cancer - Past Surgical History Past Surgical History: Yes Neuro Surgical History: No Pertinent History Cardiac: No Pertinent History Respiratory: No Pertinent History Gastrointestinal: No Pertinent History Genitourinary: No Pertinent History Musculoskeletal: No Pertinent History Female Surgical History: Hysterectomy, Section, Dilation & Curettage Other Surgical History: leap - Social History Smoking Status: Current every day smoker How long have you smoked: years Exposure to second hand smoke: Yes Alcohol Use: None Drug Use: none Patient Lives Alone: No Significant Family History: hypertension - Physical Exam General Appearance: no apparent distress Vision Acuity Degree Evaluation Phase: Uncorrected Vision Acuity Right Eye: 20/50 Vision Acuity Left Eye: 20/20 Eye Exam: left eye: normal inspection, PERRL, EOMI, abnormal EOM Ears, Nose, Throat Exam: normal ENT inspection, TMs normal, pharynx normal Neck Exam: normal inspection, non-tender, full range of motion Respiratory Exam: normal breath sounds, lungs clear, No respiratory distress Cardiovascular Exam: regular rate/rhythm, normal peripheral pulses Gastrointestinal Exam: soft, tenderness Extremity Exam: normal inspection, normal range of motion Neurologic: alert, oriented x 3, cooperative Skin Exam: normal color, warm Lymphatic: No adenopathy SpO2 Interpretation: normal O2 Delivery: Room Air - Course Nursing assessment & vital signs reviewed: Yes Ordered Tests: Active Orders 24 hr Category Date Time Status Visual Acuity STAT Care 08/30/22 15:32 Active Medication Summary Discontinued Medications Generic Name Dose Route Start Last Admin Trade Name Freq PRN Reason Stop Dose Admin Eye Irrigation Solution 15 ml 08/30/22 15:33 08/30/22 15:38 Sodium/Potassium/Jude/Magnesium 30 Ml Eye Wash OP 08/30/22 15:34 15 ml STAT ONE Administration Eye Irrigation Solution Confirm 08/30/22 15:34 Sodium/Potassium/Jude/Magnesium 30 Ml Eye Wash Administered 08/30/22 15:35 Dose 30 ml .ROUTE .STK-MED ONE Fluorescein Sodium 1 mg 08/30/22 15:33 08/30/22 15:38 Fluorescein Sodium 1 Mg/Strip Strip OP 08/30/22 15:34 1 mg STAT ONE Administration Fluorescein Sodium Confirm 08/30/22 15:34 Fluorescein Sodium 1 Mg/Strip Strip Administered 08/30/22 15:35 Dose 1 mg OP .STK-MED ONE Tetracaine HCl 4 ml 08/30/22 15:33 08/30/22 15:38 Tetracaine Hcl/Pf 4 Ml Bottle OP 08/30/22 15:34 4 ml STAT STA Administration Tetracaine HCl Confirm 08/30/22 15:34 Tetracaine Hcl/Pf 4 Ml Bottle Administered 08/30/22 15:35 Dose 4 ml OP .STK-MED ONE - Progress Progress: improved Progress Note: Patient has a abrasion to her sclera underneath the upper eyelid. This is the area that patient describes her eye irritation. Pupils equal round reactive to light. Eye was irrigated Eye-Stream. We applied erythromycin ophthalmic ointment to the involved eye. Patient's eye pressure is 17. A prescription for erythromycin ophthalmic was forwarded to patient's pharmacy. Patient agrees to follow-up with her librarian specialist within 48 hours for reevaluation. 47-year-old female presents to our ED with foreign body sensation right eye. Patient's complaint is acute. No significant contributing comorbidities. Complexity of problems addressed is straightforward. No critical care time. Amount and complexity of data reviewed and analyzed is none. The diagnosis was made based on history and physical exam. Risk of complication and/or morbidity/mortality of patient management is low. We will discharge patient home. She agrees to follow-up with her data entry within 48 hours for reevaluation. Portions of this note were created with voice recognition technology. There may be grammatical, spelling, punctuation or sound alike errors Counseled pt/family regarding: diagnosis, need for follow-up - Departure Departure Disposition: Home Clinical Impression: Abrasion of sclera of right eye Condition: Stable Critical Care Time: No Referrals: DOCTOR,NO FAMILY [Primary Care Provider] - Follow up/PCP as directed RAJIV BECKER [ACTIVE STAFF] - Follow up/PCP as directed Additional Instructions: Discharge/Care Plan SETH BAGLEY was seen on 08/30/22 in the Emergency Room. The patient was counseled regarding Diagnosis,Lab results, Imaging studies, need for follow up and when to return to the Emergency Room. Prescriptions given: Discharge Note I have spoken with the patient and/or caregivers. I have explained the patient's condition, diagnosis and treatment plan based on the information available to me at this time. I have answered the patient's and/or caregiver's questions and addressed any concerns. The patient and/or caregivers have as good understanding of the patient's diagnosis, condition and treatment plan as can be expected at this point. The vital signs have been stable. The patient's condition is stable and appropriate for discharge from the emergency department. The patient will pursue further outpatient evaluation with the primary care physician or other designated or consulting physician as outlined in the discharge instructions. The patient and/or caregivers are agreeable to this plan of care and follow-up instructions have been explained in detail. The patient and/or caregivers have received these instruction. The patient/and or caregivers are aware that any significant change in condition or worsening of symptoms should prompt an immediate return to this or the closest emergency department or call 911. Prescriptions: Erythromycin Base 3.5 gm [Erythromycin 3.5 GM OPHTH.] 3.5 gm OP QID #1
[2022-08-30 16:06] VITALS: BP 141/106; PULSE 80; O2SAT 99
== END 2022-08-30 16:07 | disposition home or self-care (01) ==
LOC: ED 15:27
DX: H15.89 Other disorders of sclera (principal); H57.11 Ocular pain, right eye; Z79.899 Other long term (current) drug therapy
CPT/HCPCS: 99281; A9270-GY

== ENCOUNTER 2022-09-15 21:19 | Emergency (ER) | payer OTHER ==
[2013-02-12 18:02] VITALS: BP 112/69
== END 2022-09-15 21:40 | disposition left against medical advice (07) ==
LOC: ED 21:19
DX: Z53.21 Procedure and treatment not carried out due to patient leaving prior to being seen by health care provider (principal)

== ENCOUNTER 2023-01-05 21:03 | Emergency (ER) | payer OTHER ==
--- NOTE | 2023-01-05 21:22 | ERPHSYRPT ---
- History of Present Illness Time Seen by Provider: 01/05/23 21:22 Source: patient Exam Limitations: no limitations Physician History: This a 47-year-old white female patient who states that she got mascara in her left eye 5 days ago and since that time she has had pain and tearing as well as white and yellowish drainage intermittently during each day. There was increased pain today. Patient has had corneal abrasions in the past in the right eye and this feels the same today. 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 Patient prefers antibiotic/steroid combination drops over erythromycin ointment. Patient has a history of migraine headaches, COPD/asthma, hypoglycemia, fibromyalgia, anxiety issues and gastroesophageal reflux disease. Timing/Duration: day(s) (5) Location: left eye Severity: mild (To moderate) Apparent Injury: possibly Associated Symptoms: pain, burning, redness, matting Visual Assistive Devices: None Chemical Exposure: Yes (Mascara exposure) Treatment at Time of Chemical Exposure: Has been rinsing her eye out multiple ti Trauma: No Welding Arc/Tanning Bed Exposure: No Allergies/Adverse Reactions: erythromycin base Allergy (Intermediate, Verified 01/05/23 21:29) Rash haloperidol [From Haldol] Allergy (Mild, Verified 01/05/23 21:28) "CAN'T MOVE AT ALL FOR 3 DAYS" Home Medications: Albuterol 8 gm Mdi Hfa [Ventolin Hfa MDI] 0 gm IH Q4-6HPRN PRN 10/16/20 [History] Alprazolam [Xanax] 1 mg PO BID 08/10/21 [History] Hx Tetanus, Diphtheria Vaccination/Date Given: No Hx Influenza Vaccination/Date Given: No Hx Pneumococcal Vaccination/Date Given: No Travel Risk - International Travel Have you traveled outside of the country in past 3 weeks: No - Coronavirus Screening Are you exhibiting any of the following symptoms?: No Close contact with a COVID-19 positive Pt in past 14-21 Days: No - Vaccine Status Have you recieved a Covid-19 vaccination: Yes 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 - Vaccination Dates Date of 2cond Vaccination (if applicable): 07/13/2021 - Review of Systems Constitutional: No Symptoms Eyes: Discharge (Left eye), Eye Pain, Eye Redness (Left eye left eye) Ears, Nose, & Throat: No Symptoms Respiratory: No Symptoms Cardiac: No Symptoms Abdominal/Gastrointestinal: No Symptoms Genitourinary Symptoms: No Symptoms Musculoskeletal: No Symptoms Skin: No Symptoms Neurological: No Symptoms Psychological: No Symptoms Endocrine: No Symptoms Hematologic/Lymphatic: No Symptoms Immunological/Allergic: No Symptoms All Other Systems: Reviewed and Negative - Past Medical History Pertinent Past Medical History: Yes Neurological History: Migraines ENT History: No Pertinent History Cardiac History: No Pertinent History Respiratory History: COPD, Asthma Endocrine Medical History: Hypoglycemia Musculoskeletal History: Fibromyalgia GI Medical History: GERD History: No Pertinent History Psycho-Social History: Depression, Anxiety Female Reproductive Disorders: No Pertinent History Other Medical History: cervical cancer - Past Surgical History Past Surgical History: Yes Neuro Surgical History: No Pertinent History Cardiac: No Pertinent History Respiratory: No Pertinent History Gastrointestinal: No Pertinent History Genitourinary: No Pertinent History Musculoskeletal: No Pertinent History Female Surgical History: Hysterectomy, Section, Dilation & Curettage Other Surgical History: leap - Social History Smoking Status: Current every day smoker How long have you smoked: years Exposure to second hand smoke: Yes Alcohol Use: None Drug Use: none Patient Lives Alone: No Significant Family History: hypertension - Nursing Vital Signs Nursing Vital Signs: Initial Vital Signs Temperature 97.8 F 01/05/23 21:14 Pulse Rate 79 01/05/23 21:14 Respiratory Rate 16 01/05/23 21:14 Blood Pressure 138/90 01/05/23 21:14 O2 Sat by Pulse Oximetry 100 01/05/23 21:14 Pain Scale Pain Intensity 8 - Physical Exam General Appearance: no apparent distress, alert, anxiety Eye Exam: right eye: normal inspection, left eye: PERRL, EOMI, conjunctival inflammation, eyelid inflammation Ears, Nose, Throat Exam: normal ENT inspection, pharynx normal, moist mucous membranes Neck Exam: normal inspection, non-tender, supple, full range of motion Respiratory Exam: airway intact, No chest tenderness, No respiratory distress Gastrointestinal Exam: No tenderness Extremity Exam: normal inspection, normal range of motion, pelvis stable Neurologic: alert, oriented x 3, cooperative, 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 tested, normal mood/affect, nml cerebellar function, nml station & gait, sensation nml Skin Exam: normal color, warm, dry Lymphatic: No adenopathy SpO2 Interpretation: normal O2 Delivery: Room Air - Course Nursing assessment & vital signs reviewed: Yes Ordered Tests: Medication Summary Discontinued Medications Generic Name Dose Route Start Last Admin Trade Name [place] PRN Reason Stop Dose Admin Eye Irrigation Solution Confirm 01/05/23 21:32 Sodium/Potassium/Jude/Magnesium 30 Ml Eye Wash Administered 01/05/23 21:33 Dose 30 ml .ROUTE .STK-MED ONE Fluorescein Sodium Confirm 01/05/23 21:31 Fluorescein Sodium 1 Mg/Strip Strip Administered 01/05/23 21:32 Dose 1 mg OP .STK-MED ONE Tetracaine HCl Confirm 01/05/23 21:31 Tetracaine Hcl/Pf 4 Ml Bottle Administered 01/05/23 21:32 Dose 4 ml OP .STK-MED ONE - Progress Progress: unchanged Progress Note: 01/05/23 21:57 This patient's medical issue is 1 of low complexity. The level of complexity in the work-up performed is based on review of the patient's past medical history, review of the patient's medication list, review of the patient's drug allergy list, history of present illness and physical findings on examination. No laboratory radiographic studies are necessary in this patient. Patient has left eye conjunctivitis and likely has a corneal abrasion. We will treat her with a combination of antibiotics/steroid eyedrops. We will give her the first dose here in the emergency department. I did place 3 drops of tetracaine in her left eye to provide her some relief. Patient drove herself into the emergency department. She has also had allergic reaction to the erythromycin ointment base and we will avoid the ointment. Patient will follow-up with an airplane electrician by phone tomorrow, 01/06/2023 to make a follow-up appointment. Counseled pt/family regarding: diagnosis, need for follow-up Medical Desision Making - Diagnostic Testing Diagnostic test were ordered, analyzed, and reviewed by me: No - Risk of complications The pt has a mod risk of morbidity or mortality based on: Need for prescription drug management - Departure Departure Disposition: Home Clinical Impression: Conjunctivitis, left eye Condition: Stable Critical Care Time: No Referrals: MARRY WHITE MD [Primary Care Provider] - Follow up/PCP as directed Additional Instructions: Cool or warm compresses, whichever feels the best to you, to the left eye 3 times a day. Use your antibiotic/steroid eyedrops as prescribed. Call your airplane electrician tomorrow, 01/06/2023, to make arrangements for follow-up appointment and further evaluation and management. If there are no contraindications, use Tylenol and ibuprofen for pain control. Prescriptions: Neomycin/Polymyxin B/Hydrocort [Sdedhvnv-Ddka-Wv Eye Drops] 2 drops OP QID #7.5 ml
[2023-01-05 21:28] VITALS: O2SAT 100
[2023-01-05] MEDS ORDERED: TETRACAINE 0.5% STERI-UNIT SOL OP ONE (21:31)
[2023-01-05] MEDS ORDERED: Fluor-I-Strip/Ful-Flo OP ONE (21:31)
[2023-01-05] MEDS ORDERED: Eye-Stream Solution ONE (21:32)
[2023-01-05] MEDS ORDERED: Cortisporin Eye Drops OP ONE (22:07)
[2023-01-05] MEDS ORDERED: TETRACAINE 0.5% STERI-UNIT SOL OP STA (22:08)
[2023-01-05] MEDS ORDERED: Eye-Stream Solution OP ONE (22:21)
[2023-01-05 22:39] VITALS: BP 124/63; PULSE 72
[2023-01-06] MEDS ORDERED: Cortisporin Eye Drops OP SCH (10:00)
== END 2023-01-05 22:35 | disposition home or self-care (01) ==
LOC: ED 21:03
DX: H10.9 Unspecified conjunctivitis (principal); H57.12 Ocular pain, left eye; Z79.899 Other long term (current) drug therapy; Z72.0 Tobacco use
CPT/HCPCS: 99281; A9270-GY

== ENCOUNTER 2023-01-08 16:53 | Emergency (ER) | payer OTHER ==
[2023-01-08 17:15] VITALS: O2SAT 100
[2023-01-08] MEDS ORDERED: TETRACAINE 0.5% STERI-UNIT SOL OP ONE (17:24)
[2023-01-08] MEDS ORDERED: Ocuflox OPHTHALMIC 5 ML OP ONE (17:24)
[2023-01-08] MEDS ORDERED: Fluor-I-Strip/Ful-Flo OP ONE ×2 (17:24→18:15)
[2023-01-08] MEDS ORDERED: Eye-Stream Solution ONE (17:25)
[2023-01-08] MEDS ORDERED: Ocuflox OPHTHALMIC 5 ML OP SCH (17:45)
[2023-01-08] MEDS ORDERED: Adacel Vial IM ONE ×2 (17:47→18:01)
--- NOTE | 2023-01-08 17:54 | ERPHSYRPT ---
- History of Present Illness Time Seen by Provider: 01/08/23 16:56 Source: patient Exam Limitations: no limitations Patient Subjective Stated Complaint: Eye pain Triage Nursing Assessment: Patient ambulated back to ED and transferred self to bed. Patient A+O X 3. Patient's skin pink, warm and dry. Patient complains of left eye pain. Patient was seen on 01/05/2023 and was dx with Conjuctivitis to left eye and prescribed atb/steroid eye drops and was to see a Opthlomologist for follow up. Patient states she did not follow up with Opthlomologist and still is having pain to left eye 5/10. She states she has the feeling like something is in left eye. Physician History: 47 years old female with history of anxiety presented in the ER with chief complaint of left eye pain and redness for the last 6 days. Patient was evaluated in this ER, was prescribed topical antibiotic drops with outpatient follow-up which she did not. Patient reports increasing pain and redness. 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 She has a foreign body sensation. Increased watering but no discharge. She has blurry vision in the left eye as well. Timing/Duration: day(s) (6), constant, worse Location: left eye Severity: moderate Apparent Injury: yes (Make-up [place]) Associated Symptoms: pain, burning, itching, sensitivity to light, redness, blurred vision Visual Assistive Devices: None Chemical Exposure: Yes (Facial make-up) Trauma: No Welding Arc/Tanning Bed Exposure: No Allergies/Adverse Reactions: erythromycin base Allergy (Intermediate, Verified 01/08/23 16:59) Rash haloperidol [From Haldol] Allergy (Mild, Verified 01/08/23 16:59) "CAN'T MOVE AT ALL FOR 3 DAYS" Home Medications: Albuterol 8 gm Mdi Hfa [Ventolin Hfa MDI] 0 gm IH Q4-6HPRN PRN 10/16/20 [History] Alprazolam [Xanax] 1 mg PO BID 08/10/21 [History] Hx Tetanus, Diphtheria Vaccination/Date Given: No Hx Influenza Vaccination/Date Given: No Hx Pneumococcal Vaccination/Date Given: No Travel Risk - International Travel Have you traveled outside of the country in past 3 weeks: No - Coronavirus Screening Are you exhibiting any of the following symptoms?: No Close contact with a COVID-19 positive Pt in past 14-21 Days: No - Vaccine Status Have you recieved a Covid-19 vaccination: Yes Is Project Manager: Moderna - Vaccination Dates Date of 2cond Vaccination (if applicable): 07/13/2021 - Review of Systems Constitutional: No Symptoms Eyes: Eye Pain, Eye Redness, Itchy, Photophobia, Vision Changes, Foreign Body Sensation Ears, Nose, & Throat: No Symptoms Respiratory: No Symptoms Cardiac: No Symptoms Skin: No Symptoms Neurological: No Symptoms Psychological: Anxiety Endocrine: No Symptoms Hematologic/Lymphatic: No Symptoms - Past Medical History Pertinent Past Medical History: Yes Neurological History: Migraines ENT History: No Pertinent History Cardiac History: No Pertinent History Respiratory History: COPD, Asthma Endocrine Medical History: Hypoglycemia Musculoskeletal History: Fibromyalgia GI Medical History: GERD History: No Pertinent History Psycho-Social History: Depression, Anxiety Female Reproductive Disorders: No Pertinent History Other Medical History: cervical cancer - Past Surgical History Past Surgical History: Yes Neuro Surgical History: No Pertinent History Cardiac: No Pertinent History Respiratory: No Pertinent History Gastrointestinal: No Pertinent History Genitourinary: No Pertinent History Musculoskeletal: No Pertinent History Female Surgical History: Hysterectomy, Section, Dilation & Curettage Other Surgical History: leap - Social History Smoking Status: Current every day smoker How long have you smoked: years Exposure to second hand smoke: Yes Alcohol Use: None Drug Use: none Patient Lives Alone: No Significant Family History: hypertension - Female History Hx Now: No - Nursing Vital Signs Nursing Vital Signs: Initial Vital Signs Temperature 97.7 F 01/08/23 17:03 Pulse Rate 70 01/08/23 17:03 Respiratory Rate 18 01/08/23 17:03 Blood Pressure 138/111 01/08/23 17:03 O2 Sat by Pulse Oximetry 100 01/08/23 17:03 Pain Scale Pain Intensity 5 - Physical Exam General Appearance: no apparent distress, alert Vision Acuity Degree Evaluation Phase: Uncorrected Vision Acuity Right Eye: 20/20 Vision Acuity Left Eye: 20/100 Eye Exam: right eye: normal inspection, PERRL, EOMI, left eye: conjunctival hemorrhage, conjunctival inflammation, corneal abrasion (Oval-shaped between 5 and 7 o'clock position) Ears, Nose, Throat Exam: normal ENT inspection Neck Exam: normal inspection, non-tender, supple, full range of motion Respiratory Exam: normal breath sounds, lungs clear Cardiovascular Exam: regular rate/rhythm, normal heart sounds Extremity Exam: normal inspection Neurologic: alert, oriented x 3, cooperative, blackener II-XII nml as tested Skin Exam: normal color SpO2 Interpretation: normal SpO2: 100 O2 Delivery: Room Air Procedures - Eye Procedure Time of Procedure: 17:40 Timeout: Performed Tetracaine Drops Administered: Yes Eye Irrigated w/ Saline (ccs): 30 Antibiotic Oinment/Drps Admin: left eye Progress: No foreign body seen. [place] lamp exam is done with positive uptake just below the cornea. Ordered Tests: Medication Summary Generic Name Dose Route Start Last Admin Trade Name Freq PRN Reason Stop Dose Admin Ofloxacin 5 ml 01/08/23 17:45 Ofloxacin 0.3% Opth 5 Ml Eye Drops OP 01/08/23 17:46 DISCHARGE YANI Discontinued Medications Generic Name Dose Route Start Last Admin Trade Name Freq PRN Reason Stop Dose Admin Diphtheria/Tetanus/Acell Pertussis 0.5 ml 01/08/23 17:47 Tdap --Diph,Pertuss(Acell),Tet Vac/Pf 0.5 Ml Vial IM 01/08/23 17:48 .ONCE ONE Eye Irrigation Solution Confirm 01/08/23 17:25 Sodium/Potassium/Jude/Magnesium 30 Ml Eye Wash Administered 01/08/23 17:26 Dose 30 ml .ROUTE .STK-MED ONE Fluorescein Sodium Confirm 01/08/23 17:24 Fluorescein Sodium 1 Mg/Strip Strip Administered 01/08/23 17:25 Dose 1 mg OP .STK-MED ONE Ofloxacin Confirm 01/08/23 17:24 Ofloxacin 0.3% Opth 5 Ml Eye Drops Administered 01/08/23 17:25 Dose 5 ml OP .STK-MED ONE Tetracaine HCl Confirm 01/08/23 17:24 Tetracaine Hcl/Pf 4 Ml Bottle Administered 01/08/23 17:25 Dose 4 ml OP .STK-MED ONE - Progress Progress: pain not gone completely Progress Note: 01/08/23 17:53 47 years old female with history of anxiety presented in the ER with chief complaint of left eye pain and redness for the last 6 days. Patient was evaluated in this ER, was prescribed topical antibiotic drops with outpatient follow-up which she did not. Patient reports increasing pain and redness. 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 She has a foreign body sensation. Increased watering but no discharge. She has blurry vision in the left eye as well. Patient has corneal abrasion between 5 and 7 o'clock position oval-shaped. She is given tetracaine and fluorescein exam did show uptake in the same area. I have updated her tetanus. She is advised to use cool compresses and stressed on the importance of outpatient ophthalmology/optometry follow-up tomorrow morning. I would start her on ofloxacin eyedrops. Discussed signs symptoms of worsening needing return which she seems understanding. Counseled pt/family regarding: diagnosis, need for follow-up Medical Desision Making - Diagnostic Testing Diagnostic test were ordered, analyzed, and reviewed by me: No - Risk of complications The pt has a mod risk of morbidity or mortality based on: Need for prescription drug management - Departure Departure Disposition: Home Clinical Impression: Corneal abrasion, left Condition: Stable Critical Care Time: No Referrals: MARRY WHITE MD [Primary Care Provider] - Follow up with PCP 1 day MARRY WALDRON OD [NON-STAFF PHY W/O PRIVILEGES] - Follow up/PCP as directed (Call tomorrow morning for appointment for reevaluation) Instructions: Conjunctivitis (pink eye), Corneal Abrasion (DC) Additional Instructions: Cool compresses application. Take Tylenol/ibuprofen as needed. Continue with antibiotics drops given to you today as recommended. Stop other antibiotics drops given to you last time in the ER visit. Do not try to clean your eye with Q-tip finger or any other instrument. Follow-up with eye doctor tomorrow. Return to ER for any worsening.
[2023-01-08 18:15] VITALS: BP 143/104; PULSE 69
[2023-01-08] MEDS ORDERED: Eye-Stream Solution OP ONE (18:15)
[2023-01-08] MEDS ORDERED: TETRACAINE 0.5% STERI-UNIT SOL OP STA (18:15)
== END 2023-01-08 18:18 | disposition home or self-care (01) ==
LOC: ED 16:53
DX: S05.02XA Injury of conjunctiva and corneal abrasion without foreign body, left eye, initial encounter (principal); H57.12 Ocular pain, left eye; H53.8 Other visual disturbances; Z79.899 Other long term (current) drug therapy; Z72.0 Tobacco use
CPT/HCPCS: 90471; 90715; 99282; A9270-GY

== ENCOUNTER 2024-07-23 16:40 | Emergency (ER) | payer OTHER ==
--- NOTE | 2024-07-23 18:31 | ERPHSYRPT ---
- History of Present Illness Source: patient, family Exam Limitations: no limitations Timing/Duration: today Severity of Symptoms-Max: moderate Severity of Symptoms-Current: moderate Context related to: other (Benzodiazepine withdrawal) Associated Symptoms: anxiety Previous symptoms: same symptoms as today, no recent treatment Hx Tetanus, Diphtheria Vaccination/Date Given: No Hx Influenza Vaccination/Date Given: No Hx Pneumococcal Vaccination/Date Given: No <LAINA ESQUIVEL - Last Filed: 07/23/24 18:24> <NIESHA REDDY - Last Filed: 07/23/24 22:58> - History of Present Illness Time Seen by Provider: 07/23/24 18:25 Physician History: This is a 49-year-old white female patient who presents to the emergency department with the concern and complaint of withdrawing from Xanax. [facility] called and stated that they have a bed and patient requires a medical clearance. Patient has generalized aching. (LAINA ESQUIVEL) Allergies/Adverse Reactions: erythromycin base Allergy (Intermediate, Verified 07/23/24 18:35) Rash haloperidol [From Haldol] Allergy (Mild, Verified 07/23/24 18:35) "CAN'T MOVE AT ALL FOR 3 DAYS" Home Medications: Albuterol 8 gm Mdi Hfa [Ventolin Hfa MDI] 0 gm IH Q4-6HPRN PRN 10/16/20 [History] Alprazolam [Xanax] 1 mg PO BID 08/10/21 [History] Tobramycin Sulfate Ophth [Tobrex EYE DROPS 5 ML] 1 drop OP QID 07/23/24 [History] Travel Risk - International Travel Have you traveled outside of the country in past 3 weeks: No - Emerging Infectious Disease Are you exhibiting symptoms associated with any current EIDs: No <LAINA ESQUIVEL - Last Filed: 07/23/24 18:24> - Past Medical History Pertinent Past Medical History: Yes Neurological History: Migraines ENT History: No Pertinent History Cardiac History: No Pertinent History Respiratory History: COPD, Asthma Endocrine Medical History: Hypoglycemia Musculoskeletal History: Fibromyalgia GI Medical History: GERD History: No Pertinent History Psycho-Social History: Depression, Anxiety Female Reproductive Disorders: No Pertinent History Other Medical History: cervical cancer - Past Surgical History Past Surgical History: Yes Neuro Surgical History: No Pertinent History Cardiac: No Pertinent History Respiratory: No Pertinent History Gastrointestinal: No Pertinent History Genitourinary: No Pertinent History Musculoskeletal: No Pertinent History Female Surgical History: Hysterectomy, Section, Dilation & Curettage Other Surgical History: leap Significant Family History: hypertension - Female History Hx Last Menstrual Period: current - Social History Smoking Status: Current every day smoker How long have you smoked: years Exposure to second hand smoke: Yes Alcohol Use: None Drug Use: none Patient Lives Alone: No <LAINA ESQUIVEL - Last Filed: 07/23/24 18:24> - Review of Systems Constitutional: No Symptoms Eyes: No Symptoms Ears, Nose, & Throat: No Symptoms Respiratory: No Symptoms Cardiac: No Symptoms Abdominal/Gastrointestinal: No Symptoms Genitourinary Symptoms: No Symptoms Musculoskeletal: Arthralgias, Myalgias Skin: No Symptoms Neurological: No Symptoms Psychological: No Symptoms Endocrine: No Symptoms Hematologic/Lymphatic: No Symptoms Immunological/Allergic: No Symptoms All Other Systems: Reviewed and Negative <LAINA ESQUIVEL - Last Filed: 07/23/24 18:24> - Physical Exam General Appearance: no apparent distress, alert, anxiety Eyes, Ears, Nose, Throat Exam: normal ENT inspection, moist mucous membranes Neck Exam: normal inspection, non-tender, supple, full range of motion Respiratory Exam: normal breath sounds, lungs clear, No chest tenderness, No respiratory distress Cardiovascular Exam: regular rate/rhythm, normal heart sounds, normal peripheral pulses Gastrointestinal/Abdominal Exam: soft, normal bowel sounds, No tenderness Current Suicidality: denies suicide plan Neurological Exam: alert, oriented x 3, anxious Appearance: disheveled Behavior/Eye Contact/Speech: alert & cooperative, avoids eye contact Thoughts/Hallucinations: normal thought pattern, no apparent hallucination Skin Exam: normal color, warm, dry SpO2 Interpretation: normal O2 Delivery: Room Air <LAINA ESQUIVEL - Last Filed: 07/23/24 18:24> - Nursing Vital Signs Nursing Vital Signs: Initial Vital Signs Temperature 98.8 F 07/23/24 18:20 Pulse Rate 63 07/23/24 18:20 Respiratory Rate 19 07/23/24 18:20 Blood Pressure 135/87 07/23/24 18:20 O2 Sat by Pulse Oximetry 99 07/23/24 18:20 Pain Scale Pain Intensity 8 - Course Nursing assessment & vital signs reviewed: Yes <SIERRALAINA JoonNery - Last Filed: 07/23/24 18:24> Ordered Tests: Active Orders 24 hr Category Date Time Status EKG-ER Only STAT Care 07/23/24 18:26 Active ACETAMINOPHEN Stat Lab 07/23/24 18:47 Completed CBC W DIFF Stat Lab 07/23/24 18:47 Completed CMP Stat Lab 07/23/24 18:47 Completed ETHYL ALCOHOL Stat Lab 07/23/24 18:47 Completed SALICYLATE Stat Lab 07/23/24 18:47 Completed UA W/RFX UR CULTURE Stat Lab 07/23/24 18:43 Completed Urine Triage Profile Stat Lab 07/23/24 18:43 Completed Medication Summary Discontinued Medications Generic Name Dose Route Start Last Admin Trade Name [place] PRN Reason Stop Dose Admin Acetaminophen 1,000 mg 07/23/24 21:15 07/23/24 21:17 Acetaminophen 500 Mg Tablet PO 07/23/24 21:16 1,000 mg STAT STA Administration Acetaminophen Confirm 07/23/24 21:16 Acetaminophen 500 Mg Tablet Administered 07/23/24 21:17 Dose 1,000 mg .ROUTE .STK-MED ONE Ondansetron HCl 4 mg 07/23/24 18:55 07/23/24 19:24 Zofran 4 Mg/Udtablet Orally Disintegrating PO 07/23/24 18:56 4 mg STAT ONE Administration Ondansetron HCl Confirm 07/23/24 19:24 Zofran 4 Mg/Udtablet Orally Disintegrating Administered 07/23/24 19:25 Dose 4 mg .ROUTE .STK-MED ONE Lab/Rad Data: Laboratory Result Diagrams 07/23/24 18:47 07/23/24 18:47 Laboratory Results 07/23/24 07/23/24 07/23/24 Range/Units 18:47 18:47 18:47 WBC 5.2 (3.98-10.04) x10^3/uL RBC 4.42 (3.93-5.22) x10^6/uL Hgb 13.9 (11.2-15.7) g/dL Hct 41.1 (34.1-44.9) % MCV 93.0 (79.4-94.8) fL MCH 31.4 (25.6-32.2) pg MCHC 33.8 (32.2-35.5) g/dL RDW 12.5 (11.7-14.4) % Plt Count 204 (182-369) x10^3/uL MPV 9.5 (9.4-12.3) fL Gran % 62.3 (34.0-71.1) % Immature Gran % (Auto) 0.4 (0.001-0.429) % Nucleat RBC Rel Count 0.0 (0.00-0.2) % Eos # (Auto) 0.04 (0.04-0.36) x10^3/uL Immature Gran # (Auto) 0.02 (0.001-0.031) x10^3u/L Absolute Lymphs (auto) 1.26 (1.18-3.74) x10^3/uL Absolute Monos (auto) 0.63 (0.24-0.86) x10^3/uL Absolute Nucleated RBC 0.00 (0.00-0.012) x10^3u/L Lymphocytes % 24.1 (19.3-51.7) % Monocytes % 12.0 (4.7-12.5) % Eosinophils % 0.8 (0.7-5.8) % Basophils % 0.4 (0.1-1.2) % Absolute Granulocytes 3.26 (1.56-6.13) x10^3/uL Basophils # 0.02 (0.01-0.08) x10^3/uL Sodium 137 (135-145) mmol/L Potassium 4.4 (3.5-5.1) mmol/L Chloride 103 (98-107) mmol/L Carbon Dioxide 28 (22-30) mmol/L Anion Gap 9.4 (5-15) MEQ/L BUN 14 (7-17) mg/dL Creatinine 0.74 (0.52-1.04) mg/dL Estimated GFR 99.7 ML/MIN Glucose 93 (74-106) mg/dL Calcium 8.9 (8.4-10.2) mg/dL Total Bilirubin 0.40 (0.2-1.3) mg/dL AST 38 H (14-36) U/L ALT 31 (0-35) U/L Alkaline Phosphatase 78 (38-126) U/L Serum Total Protein 6.9 (6.3-8.2) g/dL Albumin 4.3 (3.5-5.0) g/dL Urine Color (Yellow) Urine Appearance (Clear) Urine pH (4.6-8.0) Ur Specific [place] (1.005-1.030) Urine Protein (Negative) Urine Glucose (UA) (Negative) mg/dL Urine Ketones (Negative) Urine Blood (Negative) Urine Nitrite (Negative) Urine Bilirubin (Negative) Urine Urobilinogen (0.2) mg/dL Ur Leukocyte Esterase (Negative) U Hyaline Cast (Auto) (0-2) /LPF Urine Microscopic RBC (0-5) /HPF Urine Microscopic WBC (0-5) /HPF Ur Epithelial Cells (None Seen) /HPF Urine Bacteria (None Seen) /HPF Urine Culture Reflexed (NO) Salicylates < 1.0 L (2-20) mg/dL Urine Opiates Level (NEGATIVE) Ur Methadone (NEGATIVE) Acetaminophen < 10 L (10-30) ug/ml Urine Barbiturates (NEGATIVE) Ur Phencyclidine (PCP) (NEGATIVE) Urine Amphetamine (NEGATIVE) U Benzodiazepine Level (NEGATIVE) Urine Cocaine (NEGATIVE) Urine Marijuana (THC) (NEGATIVE) Ethyl Alcohol < 10 (0-10) mg/dL Influenza Type A Ag NEGATIVE (NEGATIVE) Influenza Type B Ag NEGATIVE (NEGATIVE) RSV (PCR) NEGATIVE (NEGATIVE) SARS-CoV-2 (PCR) POSITIVE A (NEGATIVE) 07/23/24 07/23/24 Range/Units 18:43 18:43 WBC (3.98-10.04) x10^3/uL RBC (3.93-5.22) x10^6/uL Hgb (11.2-15.7) g/dL Hct (34.1-44.9) % MCV (79.4-94.8) fL MCH (25.6-32.2) pg MCHC (32.2-35.5) g/dL RDW (11.7-14.4) % Plt Count (182-369) x10^3/uL MPV (9.4-12.3) fL Gran % (34.0-71.1) % Immature Gran % (Auto) (0.001-0.429) % Nucleat RBC Rel Count (0.00-0.2) % Eos # (Auto) (0.04-0.36) x10^3/uL Immature Gran # (Auto) (0.001-0.031) x10^3u/L Absolute Lymphs (auto) (1.18-3.74) x10^3/uL Absolute Monos (auto) (0.24-0.86) x10^3/uL Absolute Nucleated RBC (0.00-0.012) x10^3u/L Lymphocytes % (19.3-51.7) % Monocytes % (4.7-12.5) % Eosinophils % (0.7-5.8) % Basophils % (0.1-1.2) % Absolute Granulocytes (1.56-6.13) x10^3/uL Basophils # (0.01-0.08) x10^3/uL Sodium (135-145) mmol/L Potassium (3.5-5.1) mmol/L Chloride (98-107) mmol/L Carbon Dioxide (22-30) mmol/L Anion Gap (5-15) MEQ/L BUN (7-17) mg/dL Creatinine (0.52-1.04) mg/dL Estimated GFR ML/MIN Glucose (74-106) mg/dL Calcium (8.4-10.2) mg/dL Total Bilirubin (0.2-1.3) mg/dL AST (14-36) U/L ALT (0-35) U/L Alkaline Phosphatase (38-126) U/L Serum Total Protein (6.3-8.2) g/dL Albumin (3.5-5.0) g/dL Urine Color Yellow (Yellow) Urine Appearance Clear (Clear) Urine pH 6.0 (4.6-8.0) Ur Specific [place] <=1.005 (1.005-1.030) Urine Protein Negative (Negative) Urine Glucose (UA) Negative (Negative) mg/dL Urine Ketones Negative (Negative) Urine Blood Negative (Negative) Urine Nitrite Negative (Negative) Urine Bilirubin Negative (Negative) Urine Urobilinogen 0.2 (0.2) mg/dL Ur Leukocyte Esterase Negative (Negative) U Hyaline Cast (Auto) NONE SEEN (0-2) /LPF Urine Microscopic RBC 0-2 (0-5) /HPF Urine Microscopic WBC 0-2 (0-5) /HPF Ur Epithelial Cells None Seen (None Seen) /HPF Urine Bacteria None Seen (None Seen) /HPF Urine Culture Reflexed NO (NO) Salicylates (2-20) mg/dL Urine Opiates Level NEGATIVE (NEGATIVE) Ur Methadone NEGATIVE (NEGATIVE) Acetaminophen (10-30) ug/ml Urine Barbiturates NEGATIVE (NEGATIVE) Ur Phencyclidine (PCP) NEGATIVE (NEGATIVE) Urine Amphetamine NEGATIVE (NEGATIVE) U Benzodiazepine Level NEGATIVE (NEGATIVE) Urine Cocaine NEGATIVE (NEGATIVE) Urine Marijuana (THC) POSITIVE A (NEGATIVE) Ethyl Alcohol (0-10) mg/dL Influenza Type A Ag (NEGATIVE) Influenza Type B Ag (NEGATIVE) RSV (PCR) (NEGATIVE) SARS-CoV-2 (PCR) (NEGATIVE) <LAINA ESQUIVEL - Last Filed: 07/23/24 18:24> - Progress Progress: improved Counseled pt/family regarding: lab results, diagnosis <NIESHA REDDY - Last Filed: 07/23/24 22:58> - Progress Progress Note: 07/23/24 18:31 My medical decision making and the assignment of moderate complexity to this patient's medical issue today is based on review of the patient's past medical history, review of the patient's medication list, reviewed patient drug allergy list, history present illness and physical findings on examination. The workup in this patient includes twelve-lead EKG, CBC, CMP, acetaminophen level, salicylate level, blood alcohol level, urine drug triage, urinalysis. Differential diagnosis includes but is not limited to electrolyte abnormalities, benzodiazepine withdrawal, panic disorder, dehydration, urinary tract infection I am transferring care of this patient to Dr. Reddy at shift change. He will follow-up on the workup results and make final disposition. (LAINA ESQUIVEL) Patient endorsed to Dr. Reddy at approximately 7 PM at change of shift. Dr. Reddy advised to follow-up on pending laboratory studies. Labs reviewed. No significant abnormalities observed. Patient assessed. She is resting comfortably. She has no complaints. RSV COVID influenza positive for COVID. However patient is not symptomatic at this time. Vitals are stable. Patient resting comfortably. She voices no other complaints or concerns at this time. Patient is medically cleared for transfer to [facility] Portions of this note were created with voice recognition technology. There may be grammatical, spelling, punctuation or sound alike errors 07/23/24 19:55 Patient accepted to the [facility] at 2028 by 07/23/24 22:56 (NIESHA REDDY) - Departure Departure Disposition: Transfer Critical Care Time: No <LAINA ESQUIVEL - Last Filed: 07/23/24 18:24> <NIESHA REDDY - Last Filed: 07/23/24 22:58> - Departure Clinical Impression: Benzodiazepine withdrawal Condition: Stable Referrals: DOCTOR,NO FAMILY [Primary Care Provider] - Follow up/PCP as directed
[2024-07-23 18:33] VITALS: TEMP 98.8
[2024-07-23 18:46] LABS: Absolute Neutrophil Ct (ANC) 3.26 x10^3/uL (1.56-6.13); BASOPHIL % 0.4 % (0.1-1.2); Basophil (Absolute #) 0.02 x10^3/uL (0.01-0.08); Eosinophil % 0.8 % (0.7-5.8); Eosinophil (Absolute #) 0.04 x10^3/uL (0.04-0.36); Hematocrit 41.1 % (34.1-44.9); Hemoglobin 13.9 g/dL (11.2-15.7); IMMATURE GRAN # 0.02 x10^3u/L (0.001-0.031); IMMATURE GRAN % 0.4 % (0.001-0.429); Lymphocyte (Absolute #) 1.26 x10^3/uL (1.18-3.74); Lymphocytes % 24.1 % (19.3-51.7); Mean Corpuscular Hemoglobin 31.4 pg (25.6-32.2); Mean Corpuscular Hgb Concent. 33.8 g/dL (32.2-35.5); Mean Platelet Volume 9.5 fL (9.4-12.3); Monocyte (Absolute #) 0.63 x10^3/uL (0.24-0.86); Neutrophil % 62.3 % (34.0-71.1); Platelet Count 204 x10^3/uL (182-369); Red Blood Count 4.42 x10^6/uL (3.93-5.22); Red Cell Distribution Width 12.5 % (11.7-14.4); White Blood Count 5.2 x10^3/uL (3.98-10.04)
[2024-07-23 18:59] LABS: ACETAMINOPHEN < 10 ug/ml (10-30); ALBUMIN 4.3 g/dL (3.5-5.0); ALKALINE PHOSPHATASE 78 U/L (38-126); ANION GAP 9.4 MEQ/L (5-15); BLOOD UREA NITROGEN 14 mg/dL (7-17); CHLORIDE 103 mmol/L (98-107); Calcium 8.9 mg/dL (8.4-10.2); Carbon Dioxide 28 mmol/L (22-30); Creatinine 1 0.74 mg/dL (0.52-1.04); EST GLOMERULAR FILTRATION RATE 99.7 ML/MIN; ETHYL ALCOHOL < 10 mg/dL (0-10); Glucose 93 mg/dL (74-106); Potassium 4.4 mmol/L (3.5-5.1); SALICYLATE < 1.0 mg/dL (2-20); SGOT/AST 38 U/L (14-36); SGPT/ALT 31 U/L (0-35); SODIUM 137 mmol/L (135-145); Total Protein 6.9 g/dL (6.3-8.2)
[2024-07-23 18:59] LABS: Appearance Clear (Clear); Bacteria None Seen /HPF (None Seen); Bilirubin Negative (Negative); Blood Negative (Negative); Epithelial Cells None Seen /HPF (None Seen); Glucose, Urine Negative (Negative); Hyaline Casts NONE SEEN /LPF (0-2); Ketones Negative (Negative); Leukocyte Esterase Negative (Negative); Nitrite Negative (Negative); Protein,Urine Dip Negative (Negative); RBC 0-2 /HPF (0-5); Specific Gravity <=1.005 (1.005-1.030); Urobilinogen 0.2 mg/dL (0.2); WBC 0-2 /HPF (0-5)
[2024-07-23 19:10] LABS: Amphetamine,Urine NEGATIVE (NEGATIVE); Barbiturate,Urine NEGATIVE (NEGATIVE); Benzodiazepine,Urine NEGATIVE (NEGATIVE); Cocaine,Urine NEGATIVE (NEGATIVE); Methadone,Urine NEGATIVE (NEGATIVE); Opiate,Urine NEGATIVE (NEGATIVE); PCP,Urine NEGATIVE (NEGATIVE); THC,Urine POSITIVE (NEGATIVE)
[2024-07-23 19:23] LABS: INFLUENZA A NEGATIVE (NEGATIVE); INFLUENZA B NEGATIVE (NEGATIVE); RESPIRATORY SYNCTIAL VIRUS NEGATIVE (NEGATIVE)
[2024-07-23] MEDS ORDERED: ZOFRAN ODT 4 MG ONE (19:24)
[2024-07-23] MEDS: ZOFRAN ODT 4 MG PO ONE (19:24)
[2024-07-23 19:29] LABS: SARS-CoV-2 Xpert Express POSITIVE (NEGATIVE)
[2024-07-23 20:02] VITALS: RESP 18
[2024-07-23 21:13] VITALS: BP 103/68; PULSE 59; O2SAT 99
[2024-07-23] MEDS ORDERED: TYLENOL EXTRA STRENGTH 500 MG ONE (21:16)
[2024-07-23] MEDS: TYLENOL EXTRA STRENGTH 500 MG PO STA (21:17)
== END 2024-07-23 22:58 ==
LOC: ED 16:40
DX: F13.239 Sedative, hypnotic or anxiolytic dependence with withdrawal, unspecified (principal); M79.10 Myalgia, unspecified site; T42.4X5A Adverse effect of benzodiazepines, initial encounter; U07.1 COVID-19; Z79.899 Other long term (current) drug therapy; Z72.0 Tobacco use
CPT/HCPCS: 0241U; 36415; 80053; 80143; 80179; 80307; 81001; 82077; 85025; 93005; 99285; 99284; Q0162; A9270-GY

== ENCOUNTER 2025-05-02 11:02 | Emergency (ER) | payer OTHER ==
[2025-05-02 11:35] VITALS: TEMP 97
--- NOTE | 2025-05-02 12:09 | ERPHSYRPT ---
- History of Present Illness Time Seen by Provider: 05/02/25 11:57 Historian: patient Patient Subjective Stated Complaint: patient presents to ed with complaints of chest pain that started about an hour ago, patient states her left leg feels heavy Triage Nursing Assessment: patient... Physician History: CC: chest pain HPI: history from nursing triage notes, patient. is present She notes that she was walking her dog this morning and she felt as though her left leg was "dragging" a bit. She did decide to come back to the house and when she got home she noted that she was having chest pain. She describes the pain as being under her left breast/precordial area "like a softball sitting behind [my left breast]." She notes that she has not had pain like this before but she has had prior chest pains related to anxiety and palpitations. She notes that this episode is different. I ask if there is any particular food triggers and she notes that she has been having nausea "a lot every day" and her primary care provider is attempting to evaluate this on an outpatient basis. Patient notes that she does have irritable bowel syndrome as well. I do inquire if patient has her gallbladder and she does acknowledge that she has this. 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 Home Medications: hydrOXYzine HCL [Hydroxyzine HCl] 25 mg PO QIDPRN PRN 01/14/25 [History] Hx Tetanus, Diphtheria Vaccination/Date Given: Yes Hx Influenza Vaccination/Date Given: No Hx Pneumococcal Vaccination/Date Given: No Travel Risk - International Travel Have you traveled outside of the country in past 3 weeks: No - Emerging Infectious Disease Are you exhibiting symptoms associated with any current EIDs: No - Past Medical History Pertinent Past Medical History: Yes Neurological History: Migraines ENT History: No Pertinent History Cardiac History: No Pertinent History Respiratory History: COPD, Asthma Endocrine Medical History: Hypoglycemia Musculoskeletal History: Fibromyalgia GI Medical History: GERD History: No Pertinent History Psycho-Social History: Depression, Anxiety Female Reproductive Disorders: No Pertinent History Other Medical History: cervical cancer, PTSD, Manic depression - Past Surgical History Past Surgical History: Yes Neuro Surgical History: No Pertinent History Cardiac: No Pertinent History Respiratory: No Pertinent History Gastrointestinal: No Pertinent History Genitourinary: No Pertinent History Musculoskeletal: No Pertinent History Female Surgical History: Hysterectomy, Section, Dilation & Curettage Other Surgical History: leap Significant Family History: hypertension - Female History Hx Last Menstrual Period: 2018 Hx Now: No - Social History Smoking Status: Former smoker Exposure to second hand smoke: No Drug Use: marijuana - Social Determinants of Health Will the patient participate in the screening: Yes Do you worry about a steady place to live?: No Do you have any problems with any of the following?: No known problems In the past 12 months,have you had to go without utilities?: No Transportation Issues: No Has anyone in your support network made you feel unsafe?: No Have you or anyone in your house had to go w/o enough food: No - Nursing Vital Signs Nursing Vital Signs: Initial Vital Signs Temperature 97 F 05/02/25 11:02 Pulse Rate 65 05/02/25 11:02 Respiratory Rate 16 05/02/25 11:02 Blood Pressure 129/85 05/02/25 11:02 O2 Sat by Pulse Oximetry 96 05/02/25 11:02 Pain Scale Pain Intensity 2 - Physical Exam SpO2 Interpretation: normal SpO2: 96 O2 Delivery: Room Air Comments: NAD, A&O, nontoxic. Pleasant. No pain distress. No physiologic distress. Appears to be a well adult with a concern about her symptom . Eyes: spontaneous EOMI, nonicteric, conjunctiva clear Throat: Moist mucous membranes. Neck: spontaneous ROM, without pain. Lungs: no distress, nl effort Skin: warm, dry, normal turgor. no gross rash. Good muscle tone and moves all extremities spontaneously. - Course Nursing assessment & vital signs reviewed: Yes EKG Interpreted by Me: Other (1155 EKG with normal sinus rhythm rate 85, ID 0.12, QRS 0.08, leftward axis, normal R wave progression. Baseline wander is noted in other leads but also noted in V2 as well as V3. No STEMI. Cannot exclude left atrial enlargement) Ordered Tests: Active Orders 24 hr Category Date Time Status EKG-ER Only STAT Care 05/02/25 12:01 Completed IV Insertion STAT Care 05/02/25 12:01 Completed Pulse Oximetry (ED) STAT Care 05/02/25 12:01 Completed CHEST 2 VIEWS (PA AND LAT) Stat Exams 05/02/25 12:02 Completed BMP Stat Lab 05/02/25 11:10 Completed CBC W DIFF Stat Lab 05/02/25 11:10 Completed Hepatic Function Panel Stat Lab 05/02/25 11:10 Completed LIPASE Stat Lab 05/02/25 11:10 Completed PROCALCITONIN Stat Lab 05/02/25 11:10 Completed TROPONIN Q4H Lab 05/02/25 11:10 Completed Lab/Rad Data: Laboratory Result Diagrams 05/02/25 11:10 05/02/25 11:10 Laboratory Results 05/02/25 05/02/25 05/02/25 Range/Units 11:10 11:10 11:10 WBC 7.8 (3.98-10.04) x10^3/uL RBC 4.23 (3.93-5.22) x10^6/uL Hgb 13.5 (11.2-15.7) g/dL Hct 40.6 (34.1-44.9) % MCV 96.0 H (79.4-94.8) fL MCH 31.9 (25.6-32.2) pg MCHC 33.3 (32.2-35.5) g/dL RDW 12.7 (11.7-14.4) % Plt Count 267 (182-369) x10^3/uL MPV 10.5 (9.4-12.3) fL Gran % 66.0 (34.0-71.1) % Immature Gran % (Auto) 0.4 (0.001-0.429) % Nucleat RBC Rel Count 0.0 (0.00-0.2) % Eos # (Auto) 0.07 (0.04-0.36) x10^3/uL Immature Gran # (Auto) 0.03 (0.001-0.031) x10^3u/L Absolute Lymphs (auto) 1.82 (1.18-3.74) x10^3/uL Absolute Monos (auto) 0.71 (0.24-0.86) x10^3/uL Absolute Nucleated RBC 0.00 (0.00-0.012) x10^3u/L Lymphocytes % 23.2 (19.3-51.7) % Monocytes % 9.1 (4.7-12.5) % Eosinophils % 0.9 (0.7-5.8) % Basophils % 0.4 (0.1-1.2) % Absolute Granulocytes 5.18 (1.56-6.13) x10^3/uL Basophils # 0.03 (0.01-0.08) x10^3/uL Sodium 135 (135-145) mmol/L Potassium 4.2 (3.5-5.1) mmol/L Chloride 102 (98-107) mmol/L Carbon Dioxide 24 (22-30) mmol/L Anion Gap 12.9 (5-15) MEQ/L BUN 14 (7-17) mg/dL Creatinine 1.05 H (0.52-1.04) mg/dL Estimated GFR 65.5 ML/MIN Glucose 88 (74-106) mg/dL Calcium 9.5 (8.4-10.2) mg/dL Total Bilirubin 0.70 (0.2-1.3) mg/dL Direct Bilirubin 0 (0.0-0.4) mg/dL AST 27 (14-36) U/L ALT 24 (0-35) U/L Alkaline Phosphatase 67 (38-126) U/L Troponin I < 0.012 (0.000-0.033) ng/mL Serum Total Protein 7.1 (6.3-8.2) g/dL Albumin 4.4 (3.5-5.0) g/dL Lipase 163 (23-300) U/L Procalcitonin < 0.030 L (0.030-0.080) ng/mL - Progress Progress Note: 05/02/25 12:09 She had onset of symptoms starting with atypical sensation with her leg while walking the dog but then she has this chest discomfort which is also in her back. She has had similar episodes of having achiness in her mid back and nausea "a lot every day" that her primary care provider has been evaluating. There is possibility that she could have gallbladder related issue. Her EKG is without STEMI. Will complete lab testing to include troponin. Also hepatic function panel lipase electrolytes and a procalcitonin. 2 view chest x-ray has been ordered. ER became busy and there were serious/critical patients including transfers. Patient had left the ER after testing had been completed but prior to my returning to speak with her about the results. Labs have been reviewed and are nonfocal X-ray has been reviewed and nonfocal report. - Departure Departure Disposition: AMA Clinical Impression: Left chest pressure, History of palpitations, History of chest pain Condition: Stable Critical Care Time: No Referrals: BRITTANY MANRIQUEZ MD [Primary Care Provider, [facility]] - Follow up/PCP as directed
--- NOTE | 2025-05-02 12:23 | XRAY ---
Indication: Chest pain. Comparison: September 02, 2019 PA/lateral chest again demonstrates normal heart, lungs, and bony thorax. Incidental right nipple shadow. No acute findings.
[2025-05-02 12:53] LABS: BASOPHIL % 0.4 % (0.1-1.2); Basophil (Absolute #) 0.03 x10^3/uL (0.01-0.08); Eosinophil (Absolute #) 0.07 x10^3/uL (0.04-0.36); Hematocrit 40.6 % (34.1-44.9); Hemoglobin 13.5 g/dL (11.2-15.7); IMMATURE GRAN # 0.03 x10^3u/L (0.001-0.031); IMMATURE GRAN % 0.4 % (0.001-0.429); Lymphocyte (Absolute #) 1.82 x10^3/uL (1.18-3.74); Mean Corpuscular Hemoglobin 31.9 pg (25.6-32.2); Mean Corpuscular Hgb Concent. 33.3 g/dL (32.2-35.5); Monocyte (Absolute #) 0.71 x10^3/uL (0.24-0.86); NUCLEATED RBC # 0.00 x10^3u/L (0.00-0.012); NUCLEATED RBC % 0.0 % (0.00-0.2); Platelet Count 267 x10^3/uL (182-369); Red Blood Count 4.23 x10^6/uL (3.93-5.22); White Blood Count 7.8 x10^3/uL (3.98-10.04)
[2025-05-02 13:32] LABS: Calcium 9.5 mg/dL (8.4-10.2); Carbon Dioxide 24 mmol/L (22-30); Creatinine 1 1.05 mg/dL (0.52-1.04); EST GLOMERULAR FILTRATION RATE 65.5 ML/MIN; Glucose 88 mg/dL (74-106); Potassium 4.2 mmol/L (3.5-5.1); SGOT/AST 27 U/L (14-36); SGPT/ALT 24 U/L (0-35); Total Protein 7.1 g/dL (6.3-8.2)
[2025-05-02 14:15] VITALS: BP 147/92; PULSE 68; RESP 18
[2025-05-02 22:03] VITALS: O2SAT 96
== END 2025-05-02 14:41 | disposition left against medical advice (07) ==
LOC: ED 11:02
DX: R07.9 Chest pain, unspecified (principal); Z86.79 Personal history of other diseases of the circulatory system; Z79.899 Other long term (current) drug therapy